=== PATIENT | male | born 1945 | race Caucasian/White ===

== ENCOUNTER → 2017-01-22 | Outpatient (CLI) | payer BC ==
[~2017-01-22] MED LIST: ALFU10TA30 PO; ATEN-175 PO; FINA5TAB PO; LOSA100T65 PO
== END | disposition home or self-care (01) ==
LOC: C.LABBFT 07:29
PROVIDERS: ATTEND Urology
DX: N40.1 Benign prostatic hyperplasia with lower urinary tract symptoms (principal); Z12.5 Encounter for screening for malignant neoplasm of prostate

== ENCOUNTER → 2017-06-08 | Outpatient (CLI) | payer BC ==
[~2017-06-08] MED LIST changes: +ALFU10TA2 PO; -ALFU10TA30 PO
[2017-06-08 12:34] LABS: BASO % 0.8 %; BASO ABS # 0.04 K/uL (0-0.2); EOS % 3.7 %; EOS ABS # 0.18 K/uL (0-0.5); HEMATOCRIT 42.1 % (42-52); IG# 0.01 K/uL (0.00-0.02); LYMPH % 20.5 %; LYMPH ABS # 0.99 K/uL (1.2-3.4); MEAN CELL VOLUME 91.1 fL (80-100); MEAN CORPUSCULAR HEMOGLOBIN 32.5 pg (25-34); MEAN CORPUSCULAR HGB CONC 35.6 g/dl (32-36); MEAN PLATELET VOLUME 10.4 fL (7.4-10.4); MONO % 12.4 %; NEUT % 62.4 %; NEUT ABS # 3.02 K/uL (1.4-6.5); PLATELET COUNT 143 K/uL (130-400); RED CELL DISTRIBUTION WIDTH CV 12.8 % (11.5-14.5); RED CELL DISTRIBUTION WIDTH SD 42.6 fL (36.4-46.3); WHITE BLOOD COUNT 4.84 K/uL (4.8-10.8)
[2017-06-08 14:51] LABS: ALBUMIN 3.7 gm/dl (3.4-5.0); ALT/SGPT 24 U/L (12-78); AST/SGOT 19 U/L (15-37); BLOOD UREA NITROGEN 17 mg/dl (7-18); CALCIUM 8.8 mg/dl (8.5-10.1); CARBON DIOXIDE 32 mmol/L (21-32); CREATININE 1.13 mg/dl (0.60-1.40); GLUCOSE 93 mg/dl (70-99); POTASSIUM 4.4 mmol/L (3.5-5.1); SODIUM 141 mmol/L (136-145)
[2017-06-08 14:54] LABS: ALKALINE PHOSPHATASE 65 U/L (45-117); CHOLESTEROL 158 mg/dl (0-200); LDL CHOLESTEROL CALCULATED 82 mg/dl; TOTAL PROTEIN 7.2 gm/dl (6.4-8.2)
== END | disposition home or self-care (01) ==
LOC: C.LABBFT 07:32
PROVIDERS: ATTEND Nurse Practitioner
DX: I10 Essential (primary) hypertension (principal); R78.5 Finding of other psychotropic drug in blood

== ENCOUNTER 2019-07-13 05:32 | Inpatient (IN) ==
--- NOTE | 2019-07-06 09:36 | Anesthesiology Consultation ---
Date of Service July 06, 2019 Assessment & Plan (1) Encounter for pre-operative examination: Chart Review Chart Review: Acceptable Risk for Surgery (pending DOS EKG and labs ) and Patient NOT seen in Pre Admission Testing Per surgeon's office- patient is to get preop testing DOS. BMP, CBC and EKG were ordered. Please note that patient does have retroperitoneal lymphadenopathy encasing the left ureter causing severe left sided hydronephrosis. Will leave fluid order to anesthesia discretion pending BMP results History Surgery Operation Date: 07/13/19 07:00 Proposed Procedures p Left Inguinal Lymph Node Biopsy, Possible Right Inguinal Lymph Node Biopsy - Carmelo Matthew, , FACS Height/Weight Height: 5 ft 8.5 in Weight: 81.647 kg Allergies Allergy/AdvReac Type Severity Reaction Status Date / Time No Known Allergies Allergy Unknown Verified 07/06/19 08:40 Medications Home Medications Medication Instructions Recorded Confirmed Last Taken alfuzosin 10 mg PO QPM 07/06/19 07/06/19 Unknown atenolol 50 mg PO QPM 07/06/19 07/06/19 Unknown finasteride 5 mg PO QPM 07/06/19 07/06/19 Unknown hydrochlorothiazide 25 mg PO QPM 07/06/19 07/06/19 Unknown lisinopril 20 mg PO QPM 07/06/19 07/06/19 Unknown Past Medical History Medical History BPH (benign prostatic hyperplasia) Dyslipidemia GERD (gastroesophageal reflux disease) History of endocarditis (Resolved) "BACTERIA EFFECTING AORTIC VALVE">TREATED WITH ANTIBIOTICS- DX'ED IN MAY 2015 Hypertension Leukopenia CHRONIC/MILD/STABLE PER 09/2018 PCP NOTE Lymphadenopathy, inguinal Lymphadenopathy, mesenteric Skin cancer Past Family History Family History Mother Hypertension History of CVA (cerebrovascular accident) Father Unknown family medical history Lung disease Brother Unknown family medical history Sister Dementia Alcohol abuse Family/Other No problems noted. Denies family history of Prostate cancer Colorectal cancer Past Surgical History Surgical History History of cataract surgery LEFT History of colonoscopy History of open reduction and internal fixation (ORIF) procedure RT LEG History of tooth extraction Social History Smoking Status: Former smoker Do You Dip or Chew Tobacco: No Smoking End Date: 31 YEARS AGO Hx Alcohol Use: No Hx Substance Use: No Testing Echocardiogram Date: 12/15/18 EF: 60-65% LV Function: normal RWMA: + none Other Findings: + LVH (mild/concentric ) Small calcified nodule on left coronary cusp unchanged from 07/14/16 study. Mild MR. Grade II diastolic dysfunction. LA severely dilated. Other Testing Chest CT 06/27/19= The heart is enlarged and without pericardial effusion. The coronary arteries are densely calcified. There is no airspace consolidation or pleural effusion. Mild scarring/atelectasis is noted at the lung bases. The trachea and central airways are clear.
[2019-07-13] MEDS ORDERED: CEFAZOLIN 2000MG 2,000 MG/15 ML SYR IV SCH (06:00)
[2019-07-13] MEDS ORDERED: LR 15ML/HR IV SCH (06:00)
[2019-07-13 06:31] LABS: Basophils # (auto) 0.02 K/uL (0-0.2); Basophils % (auto) 0.5 %; Eosinophils % (auto) 2.7 %; Hematocrit (blood only) 31.8 % (42-52); Hemoglobin 11.3 g/dL (14.0-18.0); Immature Granulocytes # (auto) 0.01 K/uL (0.00-0.02); Immature Granulocytes % (auto) 0.3 %; Lymphocytes # (auto) 0.59 K/uL (1.2-3.4); Lymphocytes % (auto) 16.1 %; Mean Corpuscular Hemoglobin 31.9 pg (25-34); Mean Corpuscular Volume 89.8 fL (80-100); Mean Platelet Volume 9.3 fL (7.4-10.4); Monocytes # (auto) 0.39 K/uL (0.11-0.59); Monocytes % (auto) 10.6 %; Neutrophils # (auto) 2.56 K/uL (1.4-6.5); Neutrophils % (auto) 69.8 %; Platelet Count 129 K/uL (130-400); RDW Coefficient of Variation 12.7 % (11.5-14.5); RDW Standard Deviation 40.8 fL (36.4-46.3); Red Blood Count 3.54 M/uL (4.7-6.1); White Blood Count 3.67 K/uL (4.8-10.8)
[2019-07-13 06:36] LABS: Mean Corpuscular Hgb Conc 35.5 g/dL (32-36)
[2019-07-13] MEDS ORDERED: LIDOCAINE HCL 2% 2 ML VIAL/AMP(20MG/ML) INFIL ONE (06:41)
[2019-07-13] MEDS ORDERED: fentaNYL citrate 100 MCG/2 ML VIAL ONE (06:41)
[2019-07-13] MEDS ORDERED: ePHEDrine sulfate 50 MG/ML SYR ONE (06:41)
[2019-07-13] MEDS ORDERED: DEXAMETHASONE SOD INJ 4 MG/ML VIAL ONE (06:41)
[2019-07-13] MEDS ORDERED: ONDANSETRON INJ 2 MG/ML 2 ML VIAL ONE ×2 (06:41→08:18)
[2019-07-13] MEDS ORDERED: PROPOFOL IV EMULSION 10 MG/ML 20 ML VIAL IV ONE ×2 (06:41→07:27)
[2019-07-13] MEDS ORDERED: MIDAZOLAM HCL 1 MG/ML 2ML VIAL ONE (06:41)
[2019-07-13] MEDS ORDERED: BUPIVACAINE LIPOSOME 1.3% 266 MG/20 ML VIAL ONE (06:50)
[2019-07-13] MEDS ORDERED: BUPIVACAINE 0.5 % 5 MG/1 ML MPF 30ML VIAL ONE ×2 (06:50→07:16)
[2019-07-13 06:51] LABS: Albumin Level 3.2 gm/dl (3.4-5.0); BUN Creatinine Ratio 18.6 (10-20); Bilirubin Direct 0.1 mg/dl (0-0.2); Calcium 9.7 mg/dl (8.5-10.1); Creatinine Clr Calc Pharmacy 28.2 ml/min; Est GFR (African American) 32.2; Est GFR (Non-African American) 27.8; Potassium 3.9 mmol/L (3.5-5.1)
[2019-07-13 06:53] LABS: Bilirubin,Total 0.4 mg/dl (0.2-1); Total Protein 6.9 gm/dl (6.4-8.2)
--- NOTE | 2019-07-13 07:06 | History & Physical Bridge Note ---
Date of Service July 13, 2019 History & Physical Bridge Note I have examined the patient, reviewed the History & Physical and in the interval since the performance of the History & Physical I have noted the following changes of clinical significance: no changes noted
[2019-07-13] MEDS ORDERED: ATROPINE SULFATE 0.1 MG/ML 10ML SYR IV PRN (07:11)
[2019-07-13] MEDS ORDERED: ePHEDrine sulfate 50 MG/ML AMP IV PRN (07:11)
--- NOTE | 2019-07-13 07:57 | Operative Report ---
PG Post Operative Report Pre & Post Diagnosis Operation Date: 07/13/19 07:00 Pre-Op Diagnosis: Localized Enlarged Lymph Node in Groin Post-Op Diagnosis: Localized Enlarged Lymph Node in Groin I identified the patient and participated in the time-out.: Yes Procedure Operation Date: 07/13/19 07:00 Actual Procedures p Left Inguinal Lymph Node Biopsy(Left) - Carmelo Matthew DO, JACOB Surgeon Carmelo Matthew DO, JACOB Cancer Program Consultant Danika Salvador Estimated Blood Loss 5 Findings Consistent with Post-Op Diagnosis Large left inguinal lymph node excised, lymphovascular pedicle controlled with 3-0 silk ties, good hemostasis. Portion sent for culture. Specimens Left inguinal lymph node Left inguinal lymph node for culture Anesthesia Type MAC Complications none Disposition Accompanied Patient To Recovery: No Disposition: Recovery Room Indications 74-year-old male with newly diagnosed lymphadenopathy and concern for lymphoma, plan for left inguinal lymph node biopsy, possible right. The risks of the procedure were discussed, all questions were answered, and the patient agreed to proceed with surgery as planned. Description of Procedure The patient was properly identified, consented, and taken to the operating room where he was placed in the supine position. Sedation with monitored anesthesia care was induced. SCDs and a safety belt were placed. Preoperative antibiotics were administered. The patient's bilateral groins was prepped and draped in the standard sterile fashion. Surgical timeout was performed and all parties were in agreement that this was the correct patient and procedure to be performed and we continued as planned. Local anesthetic was injected along the skin incision. A oblique incision was made overlying the palpable inguinal lymph node and deepened down through the subcutaneous tissue with electrocautery. The mass was circumferentially dissected, excised, and passed off the table as specimen. The lymphovascular pedicles were controlled with 3-0 silk ties. A small piece of lymph node tissue was sent for culture. The wound was irrigated and hemostasis was confirmed. A deep layer was closed with running 3-0 Vicryl suture. The skin was closed with interrupted 3-0 Vicryl deep dermal sutures, followed by 4-0 Monocryl running subcuticular suture. Dermabond was placed over the wound. The patient was extubated in the operating room and taken to the PACU where he recovered without apparent incident. All sponge, instrument and needle counts were correct at the conclusion of the procedure. The patient tolerated the procedure well. The physician's pharmacy assistant was present and scrubbed for the entirety of the case. She was critical in positioning the patient, prepping and draping, retraction and exposure, excision of the lymph node, closure the incisions, and placement of the dressings. I attest to the content of the Intraoperative Record and any orders documented therein. Any exceptions are noted below.
[2019-07-13] MEDS ORDERED: MoRPHine SULFATE 4 MG/ML 1 ML CARP\\VIAL IV PRN (08:04)
[2019-07-13] MEDS ORDERED: ONDANSETRON INJ 2 MG/ML 2 ML VIAL IV PRN ×2 (08:04→11:18)
[2019-07-13] MEDS ORDERED: OXYCODONE/ACETAMINOPHEN 5mg/325mg TAB PO PRN ×2 (08:04)
[2019-07-13] MEDS ORDERED: MoRPHine SULFATE 2 MG/ML CARP IV PRN (08:04)
[2019-07-13] MEDS ORDERED: SODIUM CHLORIDE 0.9% 1000ML 1,000 ML IV SCH (08:15)
[2019-07-13] MEDS ORDERED: ONDANSETRON INJ 2 MG/ML 2 ML VIAL IV STA (08:22)
[2019-07-13] MEDS ORDERED: CALCIUM CARBONATE 500 MG CHEWABLE TAB PO PRN (08:46)
--- NOTE | 2019-07-13 08:46 | Anesthesiology Progress Note ---
Date of Service July 13, 2019 Anesthesia Post Procedure Vital Signs Vital Signs: Temp Pulse Resp BP Pulse Ox 07/13/19 08:40 36.4 C L 83 26 H 119/66 95 07/13/19 08:30 36.4 C L 82 24 121/71 98 07/13/19 08:20 76 26 H 121/65 99 07/13/19 08:11 83 30 H 125/61 100 07/13/19 05:53 36.7 C 71 20 137/72 97 Transfer of Care Handoff Completed per policy Notes Mental Status: alert / awake / arousable and participated in evaluation Patient Amnestic to Procedure: Yes Nausea / Vomiting: adequately controlled Pain: adequately controlled Airway Patency, RR, SpO2: stable & adequate BP & HR: stable & adequate Hydration State: stable & adequate Anesthetic Complications: no major complications apparent
--- NOTE | 2019-07-13 10:07 | XRay Report ---
XR chest 1V portable CLINICAL HISTORY: SOB, tachypnea, unable to maintain O2 Sat >90%. COMPARISON STUDY: 07/08/2015 FINDINGS: The heart is normal in size. There are bilateral pulmonary airspace opacities consistent wi th a multifocal pneumonitis. There are no pleural effusions.[There is no evidence of failure. IMPRESSION: 1. Interval development of multifocal airspace opacities consistent with a multifocal pneumonitis. Cl inical and radiographic follow-up is recommended. ACT 112: Negative or not required by law. Electronically signed by: Chandler Castillo M.D. 07/13/2019 10:05 AM
[2019-07-13] MEDS ORDERED: FUROSEMIDE 20 MG in SYRINGE 0 ML IV STA (10:16)
[2019-07-13] MEDS ORDERED: FUROSEMIDE 40 MG/4 ML VIAL IV ONE (10:19)
[2019-07-13] MEDS ORDERED: FUROSEMIDE 40 MG/4 ML VIAL IV STA (10:19)
[2019-07-13] MEDS ORDERED: ALBUT/IPRATROP 3MG/0.5MG NEB 3 ML VIAL NEB STA (10:28)
--- NOTE | 2019-07-13 10:28 | Anesthesiology Progress Note ---
Date of Service Pt c/o nausea and heartburn in PACU. Treated with ondansetron with some improvement. Transferred to Phase 2. Pt however continued to c/o malaise, mild dyspnea and was noted to be relatively hypoxemic on nasal O2. Diffuse wheezing noted on auscultation. Consulted hospitalist Dr. Schultz who responded to evaluate pt. Dr. Schultz ordered CXR and plans to admit pt for further evaluation and treatment. Diffuse wheezing July 13, 2019 Physical Exam Vital Signs: Last Vital Signs Temp 36.6 C 07/13/19 08:50 Pulse 87 07/13/19 09:30 Resp 28 H 07/13/19 09:30 BP 126/77 07/13/19 09:30 Pulse Ox 91 07/13/19 09:30 Results & Data Medications Administered Cefazolin Sodium (Ancef 2000mg) 2,000 mg in 15 mls @ 3.75 mls/min IV PREOP JEANMARIE Stop: 07/13/19 18:00 Last Admin: 07/13/19 07:09 Dose: 3.75 mls/min Documented by: [id number]
--- NOTE | 2019-07-13 10:29 | History & Physical Report ---
Date of Service July 13, 2019 Assessment & Plan (1) Acute respiratory failure with hypoxia: Patient had normal O2 sats prior to his excisional lymph node biopsy today. Also had no pulmonary symptoms prior to the surgery. Thus, differential includes acute pulmonary edema vs aspiration event vs ACS. Favor acute pulmonary edema but others need to be excluded. Plan - * admit to telemetry * serial troponins * repeat EKG done in [facility] - no ischemic changes noted * change oxymask to HFNC; maintain o2 sats >90% * duonebs q6h * give additional lasix dose this afternoon * research to see when last echo was; if >1 year consider repeat * consider repeat chest x-ray with any worsening * consider IV antibiotics to cover aspiration if any fever or symptoms of infectious process COVID screen -- no recent infectious symptoms or pulmonary symptoms prior to today's operation. COVID not suspected. Present on Admission?: Yes (2) Elevated serum creatinine: Cr 1.3 in October 2018. Now 2.2 this am pre-op. Will repeat BMP this afternoon. Noted on recent CT abd/pelvis severe left-sided hydronephrosis due to obstruction from lymph nodes. Strongly consider consultation with urology -- need for stent placement?? BMP again in am as well. (3) Lymphadenopathy, inguinal: CT chest/abd/pelvis highly concerning for lymphoma. s/p excisional left-sided inguinal lymph node biopsy today. Spoke with Dr Matthew - he will recheck groin site in am. No activity restrictions. Ok for DVT proph from surgery standpoint. (4) Leukopenia: Chronic, dating back several years. Current leukopenia 2nd suspected lymphoma. (5) Hypertension: HOLD CAMILA due to elevated Cr. HOLD HCTZ due to elevated Cr and need for IV lasix. Cont atenolol. (6) Dyslipidemia: Not on statin therapy or other agent at this time. (7) BPH (benign prostatic hyperplasia): Cont home meds including alfuzosin and finasteride. Garcia. (8) GERD (gastroesophageal reflux disease): Per 's report - severe, daily symptoms. Start PPI. Start carafate qid. Serial trops to ensure GI symptoms are not cardiac in origin. (9) Hydronephrosis: left-sided on CT abd/pelvis from June. Due to obstruction from lymph nodes. See above. (10) DVT prophylaxis: heparin 5000 BID updated by phone -- Kyung Jarquin - [phone]; explained to her that he will be admitted for issues as above. History of Present Illness Chief Complaint: hypoxia, shortness of breath Primary Care Provider: Bry Garcia MD 74yo male with h/o HTN, BPH, chronic tremor dating back to his teenage years, prior aortic valve endocarditis, and suspected lymphoma who presented today for left inguinal excisional lymph node biopsy by Dr Matthew. In the last few weeks he has undergone work-up for suspected lymphoma with finney-CT chest/abd/pelvis. Per the operative record and speaking with anesthesia the procedure was uneventful. He received about 750cc of lactated ringers in total. Anesthesia - MAC. Per the anesthesiologist there was no vomiting episode or apparent aspiration event. Upon my arrival in the [facility] the patient was visibly dyspneic and tachypneic. He reported that he "felt fine" prior to his surgery today. He asked repeatedly "what's wrong?" Denied any fever, chills, cough, or dyspnea prior to the surgery today. He does have ALEXANDER with climbing a flight of steps but he states this is chronic for him. I spoke to the patient's by phone after my admission assessment and apparently sometime following dinner last evening the patient did c/o dyspnea to his but he was not visibly short of breath. Patient denies any recent LE edema or weight gain. Patient's also reports that the patient takes large amounts of TUMS on a daily basis for reflux symptoms. He c/o frequent heartburn/dyspepsia symptoms along with stomach aches. He has had these symptoms for at least a year. During my admission assessment I gave lasix 20mg IV x 1, chest x-ray was obtained (my reading - pulmonary edema), switched his oxymask to high-flow NC, and gave duoneb x 1. Following these maneuvers he reported feeling better with less dyspnea. Had 500cc of urine output immediately following the lasix. Allergies Allergy/AdvReac Type Severity Reaction Status Date / Time No Known Allergies Allergy Unknown Verified 07/13/19 05:57 Home Medications Home Medications Medication Instructions Recorded Confirmed Type alfuzosin 10 mg PO QPM 07/06/19 07/13/19 History atenolol 50 mg PO QPM 07/06/19 07/13/19 History finasteride 5 mg PO QPM 07/06/19 07/13/19 History hydrochlorothiazide 25 mg PO QPM 07/06/19 07/13/19 History lisinopril 20 mg PO QPM 07/06/19 07/13/19 History acetaminophen [Tylenol Extra 1,000 mg PO Q6H PRN 07/13/19 07/13/19 History Strength] oxycodone-acetaminophen [Percocet] 1 - 2 tab PO .q4-6h PRN #15 tab 07/13/19 Rx Past Med/Surg History Medical History (Updated 07/13/19 @ 12:16 by Reggie Schultz) BPH (benign prostatic hyperplasia) Dyslipidemia GERD (gastroesophageal reflux disease) History of endocarditis (Resolved) "BACTERIA EFFECTING AORTIC VALVE">TREATED WITH ANTIBIOTICS- DX'ED IN MAY 2015 Hypertension Leukopenia CHRONIC/MILD/STABLE PER 09/2018 PCP NOTE Lymphadenopathy, inguinal Lymphadenopathy, mesenteric Skin cancer Tremor Surgical History H/O lymph node biopsy (07/13/19) Left Inguinal Lymph Node Biopsy Dr. Matthew 07/13/2019 History of cataract surgery LEFT History of colonoscopy History of open reduction and internal fixation (ORIF) procedure RT LEG History of tooth extraction Family History Mother Hypertension History of CVA (cerebrovascular accident) Father Unknown family medical history Lung disease Brother Unknown family medical history Sister Dementia Alcohol abuse Family/Other No problems noted. Denies family history of Prostate cancer Colorectal cancer Social History (Updated 07/13/19 @ 12:07 by Reggie Schultz) Preferred Language: Czech Anesthesiology Medical Doctor Required: No Beliefs That Will Affect Care: None marital status: Current Living Situation: Spouse Current Living Situation Comment: lives in [place] current occupational status: retired current occupation: Patient retired from the school district in 2019. Feels Safe at Home: Yes Safety Concerns: Feels Safe At This Time Smoking Status: Former smoker packs per day: 1 ; Do You Dip or Chew Tobacco: No ; Smoking End Date: 31 YEARS AGO ; Second Hand Exposure: Yes ( A CHILD) ; Tobacco Cessation Education Requested by Patient: No Hx Alcohol Use: No Hx Substance Use: No Review of Systems Constitutional: + weight loss (2 pounds ); no fever, no chills and no anorexia Eyes: no worsening vision Ear, Nose, Mouth, Throat: no dysphagia Respiratory: + cough, + dyspnea and + dyspnea on exertion Cardiovascular: no chest pain, no palpitations and no edema Gastrointestinal: + abdominal pain, + heartburn and + nausea; no vomiting Genitourinary: no dysuria and no hematuria Musculoskeletal: no joint pain Integumentary: no rash Neurologic: + localized weakness (right arm weakness x 2 days?) and + tremor(s) Psychiatric: no depression Endocrine: no diabetes Hematologic / Lymphatic: no easy bleeding Physical Exam Constitutional: + acute distress, average body habitus and + frail appearing; no altered mental status tachypneic, dyspneic, using accessory muscles Eyes: PERRL lens implant left eye ENMT: Mouth: no oral mucosal abnormality and oral mucous membranes not dry Neck: trachea midline, no thyromegaly Respiratory: + respiratory distress, + retractions, + uses accessory muscles, + cough and + tachypneic Auscultation: + crackles (bibasilar ) and + wheezes Cardiovascular: Rate/Rhythm: regular rhythm and + tachycardic Heart Sounds: normal S2; no murmur Vessels: + JVD, posterior tibial pulses present and dorsalis pedis pulses present Extremities: no edema Gastrointestinal (Abdomen): Inspection/Auscultation: + abdomen distended (mild) and normal bowel sounds Percussion/Palpation: no hepatosplenomegaly Musculoskeletal: no cyanosis or clubbing, extremities motor strength 5/5 Skin: no rashes, warm and dry left inguinal region incision clean/dry/intact Neurologic: deep tendon reflexes 2+ bilaterally and moves all extremities (5/5) Motor/Sensory: + tremor (right arm mainly ) Psychiatric: Orientation: alert and oriented x 3 Affect: + anxious affect Genitourinary: normal male genitalia; garcia in place Lymphatic: no cervical lymphadenopathy Results & Data Results & Data ([facility]) Vital Signs (Past 12 Hours) Vital Signs Temp Pulse Resp BP Pulse Ox 07/13/19 09:30 87 28 H 126/77 91 07/13/19 08:50 36.6 C 80 32 H 120/61 95 07/13/19 08:40 36.4 C L 83 26 H 119/66 95 07/13/19 08:30 36.4 C L 82 24 121/71 98 07/13/19 08:20 76 26 H 121/65 99 07/13/19 08:11 83 30 H 125/61 100 07/13/19 05:53 36.7 C 71 20 137/72 97 Laboratory Results Laboratory Results - last 24 hr 07/13/19 07/13/19 07/13/19 06:02 06:02 08:32 WBC 3.67 L RBC 3.54 L Hgb 11.3 L Hct 31.8 L MCV 89.8 MCH 31.9 MCHC 35.5 RDW Std Deviation 40.8 RDW Coeff of Charlie 12.7 Plt Count 129 L MPV 9.3 Immature Gran % (Auto) 0.3 Neut % (Auto) 69.8 Lymph % (Auto) 16.1 [place] % (Auto) 10.6 Eos % (Auto) 2.7 Baso % (Auto) 0.5 Immature Gran # (Auto) 0.01 Neut # (Auto) 2.56 Lymph # (Auto) 0.59 L [place] # (Auto) 0.39 Eos # (Auto) 0.10 Baso # (Auto) 0.02 Sodium 140 Potassium 3.9 Chloride 107 Carbon Dioxide 28 Anion Gap 5.0 BUN 42 H Creatinine 2.23 H Est Cr Clr Drug Dosing 28.2 Est GFR ( Amer) 32.2 Est GFR (Non-Af Amer) 27.8 BUN/Creatinine Ratio 18.6 Glucose 93 POC Glucose Calcium 9.7 Total Bilirubin 0.4 Direct Bilirubin 0.1 AST 24 ALT 20 Alkaline Phosphatase 85 Troponin I Total Protein 6.9 Albumin 3.2 L Flow Cytometry Comment Pending 07/13/19 07/13/19 09:22 11:54 WBC RBC Hgb Hct MCV MCH MCHC RDW Std Deviation RDW Coeff of Charlie Plt Count MPV Immature Gran % (Auto) Neut % (Auto) Lymph % (Auto) [place] % (Auto) Eos % (Auto) Baso % (Auto) Immature Gran # (Auto) Neut # (Auto) Lymph # (Auto) [place] # (Auto) Eos # (Auto) Baso # (Auto) Sodium Potassium Chloride Carbon Dioxide Anion Gap BUN Creatinine Est Cr Clr Drug Dosing Est GFR ( Amer) Est GFR (Non-Af Amer) BUN/Creatinine Ratio Glucose POC Glucose 101 H Calcium Total Bilirubin Direct Bilirubin AST ALT Alkaline Phosphatase Troponin I Pending Total Protein Albumin Flow Cytometry Comment Diagnostic Findings EKG - my reading - sinus tach vs SVT (favor sinus tach); no ST changes chest x-ray - my reading - pulmonary edema b/l Code Status & VTE Plan Code Status full code level 1 VTE Prophylaxis Plan VTE Prophylaxis will be ordered: Yes PG Care Time/CCT Total # of Minutes Spent Total Time Spent with Patient: Total time spent is greater than 50% in coordination of care (as documented) at patient's floor/unit and/or counseling patient: Coding Level of Care Code 58108 Initial Inpt Care Lvl 3 Diagnoses Acute respiratory failure with hypoxia J96.01 Elevated serum creatinine R79.89 Lymphadenopathy, inguinal R59.0 Leukopenia D72.819 Leukopenia type: unspecified Hypertension I10 Hypertension type: essential hypertension Dyslipidemia E78.5 BPH (benign prostatic hyperplasia) N40.0 Lower urinary tract symptom presence: symptoms absent GERD (gastroesophageal reflux disease) K21.9 Esophagitis presence: esophagitis presence not specified Hydronephrosis N13.30 Hydronephrosis type: unspecified DVT prophylaxis Z29.9 (1) Hydronephrosis Hydronephrosis type: unspecified Qualified Code(s): N13.30 - Unspecified hydronephrosis (2) BPH (benign prostatic hyperplasia) Lower urinary tract symptom presence: symptoms absent Qualified Code(s): N40.0 - Benign prostatic hyperplasia without lower urinary tract symptoms (3) Leukopenia Leukopenia type: unspecified Qualified Code(s): D72.819 - Decreased white blood cell count, unspecified (4) GERD (gastroesophageal reflux disease) Esophagitis presence: esophagitis presence not specified Qualified Code(s): K21.9 - Gastro-esophageal reflux disease without esophagitis (5) Hypertension Hypertension type: essential hypertension Qualified Code(s): I10 - Essential (primary) hypertension
[2019-07-13] MEDS ORDERED: NITROGLYCERIN SL 0.4 MG/TAB TAB SL PRN (11:18)
[2019-07-13] MEDS ORDERED: POLYETHYLENE (MIRALAX) 17 GM PACK PO PRN (11:18)
[2019-07-13] MEDS ORDERED: ACETAMINOPHEN 500 MG TAB PO PRN (11:18)
[2019-07-13] MEDS: SUCRALFATE 1 GM/10 ML UDC PO SCH ×3 (12:11→20:15)
[2019-07-13] MEDS: PANTOprazole 40 MG in SYRINGE 0 ML IV SCH (12:11)
[2019-07-13] MEDS ORDERED: PIPERACILL/TAZOBAC CONSULT ACTIVE PRN (12:28)
[2019-07-13] MEDS ORDERED: PIPERACILLIN/TAZOBACTAM 3.375 GM in DEXTROSE 5% 100 ML IV ONE (12:45)
[2019-07-13] MEDS ORDERED: FUROSEMIDE 20 MG in SYRINGE 0 ML IV ONE (14:00)
[2019-07-13] MEDS: ALBUT/IPRATROP 3MG/0.5MG NEB 3 ML VIAL NEB SCH ×3 (15:09→23:14)
--- NOTE | 2019-07-13 17:11 | Communication Note ---
Date of Service: July 13, 2019 Since admission to the floor patient has had ongoing improvement in his respiratory status. In fact the settings on his HFNC have been weaned some since earlier in the day. He has some cough but denies dyspnea. No orthopnea. Spoke with Dr Tiff sanford to use SC heparin for DVT proph. OK to ambulate with no restrictions. Spoke with Dr Andrade from urology re: severe hydronephrosis on CT abd/pelvis in June. Likely to need stent nonurgently. [place] is due to obstruction from lymphadenopathy. Repeat exam - gen - comfortable, no dyspnea, no increased WOB heart - HR about 100 (improved); s1 s2 lungs - wheezes b/l but improved from earlier; crackles bases Imp/plan: acute hypoxic resp failure - 2nd to aspiration vs pulm edema - favor former. Did diurese about 750cc since the am. Noted that he had low-grade temp of 37.9 this afternoon; in light of probable aspiration pneumonia --- zosyn started, blood cx's dispatched. Repeat cxr in am ordered. Updated at 1700 this evening. She again confirmed NO fevers/chills/cough in the days leading up to this admission. Also, anesthesia confirmed he was CTA b/l on lung exam pre-operatively this am and had normal O2 sats in room air at time of check-in this am. Suspicion for COVID is low at this time (suspected lymphoma, however, will put him at higher risk of COVID over the next few months however). Reggie Schultz MD
[2019-07-13 18:18] LABS: BUN Creatinine Ratio 16.2 (10-20); Blood Urea Nitrogen 46 mg/dl (7-18); Calcium 9.6 mg/dl (8.5-10.1); Carbon Dioxide 26 mmol/L (21-32); Chloride 105 mmol/L (98-107); Est GFR (African American) 23.9; Est GFR (Non-African American) 20.7; Glucose 138 mg/dl (70-99); Potassium 3.7 mmol/L (3.5-5.1); Sodium 140 mmol/L (136-145)
[2019-07-13 18:23] LABS: Troponin I < 0.015 ng/ml (0-0.045)
[2019-07-13] MEDS: PIPERACILLIN/TAZOBACTAM 3.375 GM in DEXTROSE 5% 100 ML IV SCH (19:55)
[2019-07-13] MEDS: HEPARIN SOD 5,000 UNIT/0.5 ML VIAL SQ SCH ×2 (20:15→20:24)
[2019-07-13] MEDS: ALFUZOSIN HCL 10 MG TAB PO SCH (20:16)
[2019-07-13] MEDS: ATENOLOL 50 MG TABLET PO SCH (20:16)
[2019-07-13] MEDS: FINASTERIDE 5 MG TAB PO SCH (20:16)
[2019-07-13 22:33] LABS: Appearance Urine Cloudy (Clear); Bacteria Urine Automated Negative (Negative); Bilirubin Urine Negative (Negative); Blood Urine 3+ (Negative); Color Urine Orange; Glucose Urine UA Negative (Negative); Ketones Urine Negative (Negative); Leukocyte Esterase Urine Trace (Negative); Nitrite Urine Negative (Negative); Protein Urine Trace (Negative); RBC Urine Automated >30 /hpf (0-4); Specific Gravity Urine 1.015 (1.000-1.030); Urobilinogen Urine Negative (Negative)
[2019-07-13 22:53] LABS: Cast Urine Automated 0 /lpf (0-5)
[2019-07-14] MEDS: PIPERACILLIN/TAZOBACTAM 3.375 GM in DEXTROSE 5% 100 ML IV SCH ×3 (03:10→20:55)
[2019-07-14] MEDS: ALBUT/IPRATROP 3MG/0.5MG NEB 3 ML VIAL NEB SCH ×6 (03:15→22:59)
[2019-07-14 05:55] LABS: Basophils # (auto) 0.01 K/uL (0-0.2); Basophils % (auto) 0.1 %; Eosinophils # (auto) 0.02 K/uL (0-0.5); Eosinophils % (auto) 0.2 %; Hematocrit (blood only) 28.5 % (42-52); Immature Granulocytes # (auto) 0.04 K/uL (0.00-0.02); Immature Granulocytes % (auto) 0.4 %; Lymphocytes # (auto) 0.65 K/uL (1.2-3.4); Lymphocytes % (auto) 6.4 %; Mean Corpuscular Hemoglobin 31.4 pg (25-34); Mean Corpuscular Hgb Conc 35.1 g/dL (32-36); Mean Corpuscular Volume 89.6 fL (80-100); Mean Platelet Volume 9.4 fL (7.4-10.4); Monocytes # (auto) 0.63 K/uL (0.11-0.59); Monocytes % (auto) 6.2 %; Neutrophils # (auto) 8.86 K/uL (1.4-6.5); Neutrophils % (auto) 86.7 %; Platelet Count 131 K/uL (130-400); RDW Coefficient of Variation 12.9 % (11.5-14.5); RDW Standard Deviation 42.4 fL (36.4-46.3); Red Blood Count 3.18 M/uL (4.7-6.1); White Blood Count 10.21 K/uL (4.8-10.8)
--- NOTE | 2019-07-14 06:15 | Communication Note ---
Date of Service: July 14, 2019 Received report overnight of faint blood in garcia catheter, reported to bedside where patient states he is having no abdominal pain, or discomfort. Garcia c atheter still in place, with pink tinged urine in tubing and in bag. No suprapubic tenderness, no CVA tenderness, bowel sounds active, abdomen non- distended and soft. Received report that patient's BP on check at 0508 being 80/47, patient asymptomatic and sleeping in bed. Patient does have an GILLIAN with Cr elevated to 2.85 on last check yesterday evening. Received 40mg Lasix IV total yesterday due to concern for acute pulmonary edema on admission, in this setting have opted not to bolus patient. Repeat CXR this AM
[2019-07-14 06:25] LABS: BUN Creatinine Ratio 19.6 (10-20); Calcium 8.8 mg/dl (8.5-10.1); Creatinine Clr Calc Pharmacy 22.7 ml/min; Est GFR (African American) 24.8; Est GFR (Non-African American) 21.4; Potassium 3.7 mmol/L (3.5-5.1)
--- NOTE | 2019-07-14 07:57 | Surgery Progress Note ---
Date of Service July 14, 2019 Assessment & Plan (1) Lymphadenopathy, inguinal: POD 1 left inguinal node biopsy stable for d/c from surgical standpoint Supervising Physician Co-Signing Physician Notes pnt s&e, agree with above. POD#1 left inguinal lymph node biopsy, admitted for respiratory distress and o2 requirement. doing better, o2 requirement decreasing. appreciate medical management. incision with dermabond, healing well, no seroma/hematoma or infection. okay to d/c from surgery standpoint, surgery will follow peripherally. Subjective no c/o Physical Exam Gastrointestinal (Abdomen): left groin wound clean, dry Results & Data Vital Signs (Past 12 Hours) Vital Signs Temp Pulse Pulse Resp BP BP Pulse Ox 07/14/19 07:26 37.0 C 89 22 98/57 L 90 07/14/19 06:09 84 16 94 07/14/19 05:08 87 80/47 L 07/14/19 03:43 36.8 C 90 22 88/50 L 86/51 L 93 07/14/19 03:15 86 18 96 07/13/19 23:32 36.7 C 88 24 118/68 96 07/13/19 23:18 95 H 20 96 PG Care Time/CCT Total # of Minutes Spent Total Time Spent with Patient: Total time spent is greater than 50% in coordination of care (as documented) at patient's floor/unit and/or counseling patient: Coding Level of Care Code None Diagnoses Lymphadenopathy, inguinal R59.0
--- NOTE | 2019-07-14 07:58 | XRay Report ---
XR chest 1V portable CLINICAL HISTORY: 74 years-old Male presenting with acute hypoxic resp failure, interval change. TECHNIQUE: Portable upright AP view of the chest was obtained. COMPARISON: 07/13/[address] from 06/27/2019. FINDINGS: Atherosclerosis of the aortic arch. Cardiac silhouette borderline enlarged. Interval increase in mult ifocal mid to basilar predominant hazy and irregular linear opacities. Bronchial wall thickening susp ected. No pleural effusion or pneumothorax. Degenerative changes of the thoracic spine. Upper abdomen normal. IMPRESSION: 1. Interval worsening of bilateral multifocal mid to basilar predominant infiltrates. This is most c oncerning for multifocal pneumonia, including atypical and viral etiologies. Alternative differential considerations include edema or aspiration. Follow-up is advised. ACT 112: Negative or not required by law. Electronically signed by: Manjeet Sharma M.D. 07/14/2019 7:56 AM
[2019-07-14] MEDS: SUCRALFATE 1 GM/10 ML UDC PO SCH ×4 (08:45→20:57)
[2019-07-14] MEDS: HEPARIN SOD 5,000 UNIT/0.5 ML VIAL SQ SCH ×2 (08:45→20:57)
--- NOTE | 2019-07-14 10:24 | Electrocardiogram Report ---
Test Reason : Blood Pressure : / mmHG Vent. Rate : 070 BPM Atrial Rate : 070 BPM P-R Int : 180 ms QRS Dur : 098 ms QT Int : 398 ms P-R-T Axes : 071 -20 002 degrees QTc Int : 429 ms Normal sinus rhythm Minimal voltage criteria for LVH, may be normal variant Cannot rule out Anterior infarct , age undetermined Abnormal ECG When compared with ECG of 08-JUL-2015 13:30, Vent. rate has increased BY 26 BPM Minimal criteria for Anterior infarct are now Present ST now depressed in Anterior leads Confirmed by Jam Morrsi ([id number]) on 07/14/2019 10:24:26 AM Referred By: Carmelo Matthew Confirmed By:Jam Morris
--- NOTE | 2019-07-14 10:38 | Hospitalist Progress Note ---
Date of Service July 14, 2019 Assessment & Plan (1) Acute respiratory failure with hypoxia: Patient with postoperative acute respiratory failure, consideration to acute aspiration. I did review the chest x-ray from earlier this morning, does appear to be mildly worsened with bilateral lower infiltrates from previous. However, patient patient is medically better. Seems responding well to IV Zosyn which we will continue for now. As patient continues to improve, consideration to changing over to oral Augmentin to finish course. (2) Elevated serum creatinine: Creatinine is 2.77 today, seems to be elevated from previous baseline of around 1.3. No real improvement since presentation. No significant hypotension was documented since admission until earlier this morning was systolic blood pressure dropped into the 80s. It appears there was some recovery and is now 98/57. Patient was previously on an CAMILA inhibitor and HCTZ, both are not held. Hematuria noted, urinalysis taken yesterday consistent with Reilly trauma. Previous CT of the abdomen and pelvis noted, patient has a large abdominal mass with significant retroperitoneal lymphadenopathy. There is severe left-sided hydronephrosis secondary to tumor bulk. Will ask urology to evaluate with consideration of stent placement for this, case was previously discussed with Dr. Andrade. (3) Lymphadenopathy, inguinal: Cleared for discharge from a surgical perspective per their service. (4) Leukopenia: Chronic, dating back several years. Current leukopenia 2nd suspected lymphoma. (5) Hypertension: HOLD CAMILA due to elevated Cr. HOLD HCTZ due to elevated Cr and need for IV lasix. With relative hypotension, should hold atenolol as well. (6) Dyslipidemia: Not on statin therapy or other agent at this time. (7) BPH (benign prostatic hyperplasia): Cont home meds including alfuzosin and finasteride. Reilly. (8) GERD (gastroesophageal reflux disease): Per 's report - severe, daily symptoms. Start PPI. Start carafate qid. Troponin is ordered to rule out a cardiac origin, 2 sets have been nondetectable. (9) Hydronephrosis: left-sided on CT abd/pelvis from June. Due to obstruction from lymph nodes. See above. (10) DVT prophylaxis: heparin 5000 BID Admission and Anticipated Discharge Date Admission Date: July 13, 2019 Subjective Patient is and examined. He is awake and alert in no distress. He is comfortable on nasal cannula. He does have a weak sounding cough. Patient does tell me he feels significantly improved since he yesterday. He has been afebrile overnight. He is mildly hypotensive but appears to be asymptomatic from this. I do appreciate general surgery evaluation, patient is cleared from their standpoint for discharge status post inguinal lymph node resection postoperative day #1. Physical Exam Constitutional: cooperative; no acute distress Neck: trachea midline, no thyromegaly Respiratory: normal respiratory effort Auscultation: + diminished lung sounds and + crackles (Mild but diffuse, no wheeze); no rhonchi and no wheezes Cardiovascular: Rate/Rhythm: regular rate and regular rhythm Heart Sounds: normal S1, normal S2 and + murmur Gastrointestinal (Abdomen): Inspection/Auscultation: abdomen normal to inspection Percussion/Palpation: abdomen soft; abdomen nontender, no guarding, abdomen not rigid and no hepatosplenomegaly Skin: no rashes, warm and dry Genitourinary: Reilly catheter, dark pink-tinged urine with sediment in tubing and bag Results & Data Results & Data ([facility]) Vital Signs (Past 12 Hours) Vital Signs Temp Pulse Pulse Pulse Resp BP BP 07/14/19 10:05 82 07/14/19 07:26 37.0 C 89 22 98/57 L 07/14/19 07:10 84 18 07/14/19 06:09 84 16 07/14/19 05:08 87 80/47 L 07/14/19 03:43 36.8 C 90 22 88/50 L 86/51 L 07/14/19 03:15 86 18 07/13/19 23:32 36.7 C 88 24 118/68 07/13/19 23:18 95 H 20 Pulse Ox 07/14/19 10:05 07/14/19 07:26 90 07/14/19 07:10 94 07/14/19 06:09 94 07/14/19 05:08 07/14/19 03:43 93 07/14/19 03:15 96 07/13/19 23:32 96 07/13/19 23:18 96 PG Care Time/CCT Total # of Minutes Spent Total Time Spent with Patient: Total time spent is greater than 50% in coordination of care (as documented) at patient's floor/unit and/or counseling patient: Coding Level of Care Code 44856 Subseq Hosp Care Lvl 2 Diagnoses Acute respiratory failure with hypoxia J96.01 Elevated serum creatinine R79.89 Lymphadenopathy, inguinal R59.0 Leukopenia D72.819 Leukopenia type: unspecified Hypertension I10 Hypertension type: essential hypertension Dyslipidemia E78.5 BPH (benign prostatic hyperplasia) N40.0 Lower urinary tract symptom presence: symptoms absent GERD (gastroesophageal reflux disease) K21.9 Esophagitis presence: esophagitis presence not specified Hydronephrosis N13.30 Hydronephrosis type: unspecified DVT prophylaxis Z29.9 (1) Hydronephrosis Hydronephrosis type: unspecified Qualified Code(s): N13.30 - Unspecified hydronephrosis (2) BPH (benign prostatic hyperplasia) Lower urinary tract symptom presence: symptoms absent Qualified Code(s): N40.0 - Benign prostatic hyperplasia without lower urinary tract symptoms (3) Leukopenia Leukopenia type: unspecified Qualified Code(s): D72.819 - Decreased white blood cell count, unspecified (4) GERD (gastroesophageal reflux disease) Esophagitis presence: esophagitis presence not specified Qualified Code(s): K21.9 - Gastro-esophageal reflux disease without esophagitis (5) Hypertension Hypertension type: essential hypertension Qualified Code(s): I10 - Essential (primary) hypertension
--- NOTE | 2019-07-14 10:42 | Electrocardiogram Report ---
Test Reason : Blood Pressure : / mmHG Vent. Rate : 137 BPM Atrial Rate : 136 BPM P-R Int : 000 ms QRS Dur : 094 ms QT Int : 296 ms P-R-T Axes : 000 052 004 degrees QTc Int : 446 ms Poor data quality, interpretation may be adversely affected Sinus tachycardia Cannot rule out Inferior infarct , age undetermined Abnormal ECG When compared with ECG of 13-JUL-2019 05:47, (unconfirmed) Vent. rate has increased BY [address] more depressed Anterior leads T wave inversion no longer evident in Anterior leads Confirmed by Jam Morris ([id number]) on 07/14/2019 10:42:12 AM Referred By: Carmelo Matthew Confirmed By:Jam Morris
[2019-07-14] MEDS: PANTOprazole 40 MG in SYRINGE 0 ML IV SCH (11:10)
--- NOTE | 2019-07-14 11:45 | Progress Note ---
Date of Service July 14, 2019 Assessment & Plan Admission and Anticipated Discharge Date Admission Date: July 13, 2019 Subjective 74-year-old male, established with Dr. Morgan for BPH and yearly PSA screening, last seen in January 2019. In the past couple of months patient has developed inguinal swelling leading to an evaluation including CT scan imaging and recent right inguinal lymph node biopsy. CT demonstrates large left upper abdominal mass, retroperitoneal adenopathy encasing the aorta and the left ureter with some involvement of the IVC. 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 This seems to have led to left renal atrophy and severe hydronephrosis implying at least several months of involvement. Patient noted to have a bump in baseline creatinine since last summer with his values now in the range of 2.3-2.8 versus less than 1.3 last year. Patient has been admitted after aspiration in the perioperative context after lymph node biopsy. Care is discussed with the hospitalist service. In the context of the ongoing coronavirus pandemic, our service is trying to avoid in person consultations when possible. On review of the patient's chart and imaging I suspect that there is relatively little renal reserve to be salvaged in the left kidney. In addition, the bulk of the patient's retroperitoneal disease makes him more likely to suffer difficulties with stent malfunction due to extrinsic precious ria even after placement. I suspect ultimately the solution to his difficulties will be appropriate oncological management of his disease pending tissue diagnosis. Patient's creatinine is currently fluctuating in the high twos but if it continues to rise further then perhaps stent could be attempted. I suspect that the risk-benefit ratio of transfer for a percutaneous nephrostomy into his atrophic kidney would not be worthwhile. We remain available to see the patient in person, arrange for outpatient follow- up via telemedicine or in person as needed or for stent placement if it seems that this would indeed improve his global renal function. Thank you for allowing us to participate in this patient's acute care. Results & Data ([facility]) Vital Signs (Past 12 Hours) Vital Signs Temp Pulse Pulse Pulse Resp BP BP 07/14/19 10:59 81 18 07/14/19 10:52 36.8 C 84 18 96/54 L 07/14/19 10:05 82 07/14/19 07:26 37.0 C 89 22 98/57 L 07/14/19 07:10 84 18 07/14/19 06:09 84 16 07/14/19 05:08 87 80/47 L 07/14/19 03:43 36.8 C 90 22 88/50 L 86/51 L 07/14/19 03:15 86 18 Pulse Ox 07/14/19 10:59 96 07/14/19 10:52 96 07/14/19 10:05 07/14/19 07:26 90 07/14/19 07:10 94 07/14/19 06:09 94 07/14/19 05:08 07/14/19 03:43 93 07/14/19 03:15 96
[2019-07-14] MEDS: FINASTERIDE 5 MG TAB PO SCH (20:57)
[2019-07-14] MEDS: ALFUZOSIN HCL 10 MG TAB PO SCH (20:57)
[2019-07-14] MEDS: ATENOLOL 50 MG TABLET PO SCH (20:57)
[2019-07-15] MEDS: ALBUT/IPRATROP 3MG/0.5MG NEB 3 ML VIAL NEB SCH ×3 (03:02→10:47)
[2019-07-15] MEDS: PIPERACILLIN/TAZOBACTAM 3.375 GM in DEXTROSE 5% 100 ML IV SCH (04:44)
[2019-07-15 06:59] LABS: Basophils # (auto) 0.01 K/uL (0-0.2); Basophils % (auto) 0.1 %; Eosinophils % (auto) 2.6 %; Hematocrit (blood only) 26.5 % (42-52); Hemoglobin 9.2 g/dL (14.0-18.0); Immature Granulocytes # (auto) 0.01 K/uL (0.00-0.02); Immature Granulocytes % (auto) 0.1 %; Lymphocytes # (auto) 0.39 K/uL (1.2-3.4); Lymphocytes % (auto) 5.1 %; Mean Corpuscular Hemoglobin 31.4 pg (25-34); Mean Corpuscular Hgb Conc 34.7 g/dL (32-36); Mean Corpuscular Volume 90.4 fL (80-100); Monocytes # (auto) 0.43 K/uL (0.11-0.59); Monocytes % (auto) 5.6 %; Neutrophils # (auto) 6.64 K/uL (1.4-6.5); Neutrophils % (auto) 86.5 %; Platelet Count 117 K/uL (130-400); Red Blood Count 2.93 M/uL (4.7-6.1); White Blood Count 7.68 K/uL (4.8-10.8)
[2019-07-15 07:36] LABS: BUN Creatinine Ratio 19.5 (10-20); Calcium 8.6 mg/dl (8.5-10.1); Creatinine Clr Calc Pharmacy 23.3 ml/min; Est GFR (African American) 25.7; Est GFR (Non-African American) 22.2; Potassium 3.4 mmol/L (3.5-5.1)
--- NOTE | 2019-07-15 08:35 | Surgery Progress Note ---
Date of Service July 15, 2019 Assessment & Plan (1) Lymphadenopathy, inguinal: POD 2 inguinal lymph node biopsy dispo per medicine [facility] covering the weekend if there are any issues Subjective no c/o, he wants to go home Physical Exam Gastrointestinal (Abdomen): Inspection/Auscultation: + abdominal surgical incision (clean, dry) Results & Data Vital Signs (Past 12 Hours) Vital Signs Temp Pulse Pulse Pulse Resp BP BP 07/15/19 07:30 86 07/15/19 07:17 36.6 C 90 20 105/65 07/15/19 07:04 84 16 07/15/19 03:52 36.3 C L 92 H 22 115/67 07/15/19 03:05 91 H 18 07/14/19 23:50 36.7 C 107 H 18 115/62 07/14/19 23:01 95 H 18 Pulse Ox 07/15/19 07:30 07/15/19 07:17 92 07/15/19 07:04 96 07/15/19 03:52 96 07/15/19 03:05 95 07/14/19 23:50 95 07/14/19 23:01 95 PG Care Time/CCT Total # of Minutes Spent Total Time Spent with Patient: Total time spent is greater than 50% in coordination of care (as documented) at patient's floor/unit and/or counseling patient: Coding Level of Care Code None Diagnoses Lymphadenopathy, inguinal R59.0
[2019-07-15] MEDS: SUCRALFATE 1 GM/10 ML UDC PO SCH (09:02)
[2019-07-15] MEDS: HEPARIN SOD 5,000 UNIT/0.5 ML VIAL SQ SCH (09:06)
[2019-07-15] MEDS: PANTOprazole 40 MG in SYRINGE 0 ML IV SCH (10:57)
--- NOTE | 2019-07-15 11:08 | Discharge Summary ---
Date of Service July 15, 2019 Admission HPI Per Admitting Provider 74yo male with h/o HTN, BPH, chronic tremor dating back to his teenage years, prior aortic valve endocarditis, and suspected lymphoma who presented today for left inguinal excisional lymph node biopsy by Dr Matthew. In the last few weeks he has undergone work-up for suspected lymphoma with finney-CT chest/abd/pelvis. Per the operative record and speaking with anesthesia the procedure was uneventful. He received about 750cc of lactated ringers in total. Anesthesia - MAC. Per the anesthesiologist there was no vomiting episode or apparent aspiration event. Upon my arrival in the [facility] the patient was visibly dyspneic and tachypneic. He reported that he "felt fine" prior to his surgery today. He asked repeatedly "what's wrong?" Denied any fever, chills, cough, or dyspnea prior to the surgery today. He does have ALEXANDER with climbing a flight of steps but he states this is chronic for him. I spoke to the patient's by phone after my admission assessment and apparently sometime following dinner last evening the patient did c/o dyspnea to his but he was not visibly short of breath. Patient denies any recent LE edema or weight gain. Patient's also reports that the patient takes large amounts of TUMS on a daily basis for reflux symptoms. He c/o frequent heartburn/dyspepsia symptoms along with stomach aches. He has had these symptoms for at least a year. During my admission assessment I gave lasix 20mg IV x 1, chest x-ray was obtained (my reading - pulmonary edema), switched his oxymask to high-flow NC, and gave duoneb x 1. Following these maneuvers he reported feeling better with less dyspnea. Had 500cc of urine output immediately following the lasix. Admission Exam Per Admitting Provider + acute distress, average body habitus and + frail appearing; no altered mental status tachypneic, dyspneic, using accessory muscles Eyes: PERRL lens implant left eye ENMT: Mouth: no oral mucosal abnormality and oral mucous membranes not dry Neck: trachea midline, no thyromegaly Respiratory: + respiratory distress, + retractions, + uses accessory muscles, + cough and + tachypneic Auscultation: + crackles (bibasilar ) and + wheezes Cardiovascular: Rate/Rhythm: regular rhythm and + tachycardic Heart Sounds: normal S2; no murmur Vessels: + JVD, posterior tibial pulses present and dorsa lis pedis pulses present Extremities: no edema Gastrointestinal (Abdomen): Inspection/Auscultation: + abdomen distended (mild) and normal bowel sounds Percussion/Palpation: no hepatosplenomegaly Musculoskeletal: no cyanosis or clubbing, extremities motor strength 5/5 Skin: no rashes, warm and dry left inguinal region incision clean/dry/intact Neurologic: deep tendon reflexes 2+ bilaterally and moves all extremities (5/5) Motor/Sensory: + tremor (right arm mainly ) Psychiatric: Orientation: alert and oriented x 3 Affect: + anxious affect Genitourinary: normal male genitalia; garcia in place Lymphatic: no cervical lymphadenopathy Principal Diagnosis 1. Status post biopsy of inguinal lymph node 2. Acute aspiration with likely aspiration pneumonia during procedure 3. Severe GERD 4. 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 BPH by history 6. Hypertension by history Discharge Exam Constitutional cooperative; no acute distress Neck trachea midline, no thyromegaly Respiratory normal respiratory effort Auscultation: + diminished lung sounds (Faint breath sounds, is moving air. Fine rales at bases with minimal rhonchi. Overall improved from previous.), + rales and + rhonchi Cardiovascular Rate/Rhythm: regular rate and regular rhythm Heart Sounds: normal S1 and normal S2 Gastrointestinal (Abdomen) Inspection/Auscultation: abdomen normal to inspection Percussion/Palpation: abdomen soft; abdomen nontender, no guarding, abdomen not rigid and no hepatosplenomegaly Skin no rashes, warm and dry Discharge Data Allergies Allergy/AdvReac Type Severity Reaction Status Date / Time No Known Allergies Allergy Unknown Verified 07/13/19 05:57 Consultations 07/13/19 09:27 Consult Hospitalist Stat Procedures Performed Operation Date: 07/13/19 07:00 Actual Procedures p Left Inguinal Lymph Node Biopsy(Left) - Carmelo Matthew DO, FACS Hospital Course (1) Acute respiratory failure with hypoxia: Patient was initially admitted after he suffered from acute respiratory failure post procedure. Patient initially required high flow nasal cannula but over 48 hours was weaned to room air. On the day of discharge she was at 93% on room air. To stop was ordered to see if the patient had home oxygen requirements prior to his discharge. Patient was started empirically on Zosyn for questionable aspiration. He seemed to have good response to this. He is mobilizing secretions and is producing thick mucus with a strong cough. Plan will be to transition over to oral Augmentin to finish a full 7-day course antibiotics. (2) Elevated serum creatinine: Creatinine is 2.69 today, seems to be elevated from previous baseline of around 1.3. No real improvement since presentation. No significant hypotension was documented since admission until earlier yesterday morning was systolic blood pressure dropped into the 80s. Blood pressure since normalized. Patient was previously on an CAMILA inhibitor and HCTZ, both are not held. Hematuria noted, urinalysis taken yesterday consistent with Garcia trauma. CT scan noted, patient has a large mesenteric mass along with retroperitoneal lymphadenopathy. This appears to be encasing the left ureter causing severe left hydronephrosis. Per laboratory work, renal function did not appear to be improving as his creatinine was stable although significantly above baseline. I did discuss this with urology who did not feel the patient would benefit from either a ureteral stent or a percutaneous nephrostomy unless the patient was having significantly worsening renal failure. On discharge, renal function will need to be monitored closely along with symptoms, with possible referral to urology as an outpatient if symptoms worsen. (3) Lymphadenopathy, inguinal: Cleared for discharge from a surgical perspective per their service. (4) Leukopenia: Chronic, dating back several years. Current leukopenia 2nd suspected lymphoma. (5) Hypertension: Patient's CAMILA inhibitor and hydrochlorothiazide both held. He can continue on atenolol for now. Blood pressure does remain low normal. Will defer to outpatient attending if further agents need to be added. (6) Dyslipidemia: Not on statin therapy or other agent at this time. (7) BPH (benign prostatic hyperplasia): Cont home meds including alfuzosin and finasteride. Garcia. (8) GERD (gastroesophageal reflux disease): Per 's report - severe, daily symptoms. Start PPI. Start carafate qid. Troponin is ordered to rule out a cardiac origin, 2 sets have been nondetectable. (9) Hydronephrosis: left-sided on CT abd/pelvis from June. Due to obstruction from lymph nodes. See above. (10) DVT prophylaxis: heparin 5000 BID Total Time Total Time Spent Total Time Spent (In Minutes): Preparation for discharge in excess of 30 minutes Discharge Plan Discharge Items Patient Disposition: Home - Self-Care Reason For Visit: Localized Enlarged Lymph Node Discharge Diagnosis: 1. left inguinal lymph node biopsy 2. acute aspiration during biopsy with evidence of pneumonia 3. 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 Hypertension by history Condition on Discharge: Good Activity: Per Instructions section Lifting: No more than 10 pounds Bathing Comment: may shower starting 07/14/19; no soaking in tubs Exercise/Sports: Wait until after follow-up appointment Driving/Machine Use: do not resume driving while taking narcotics for pain Non-emergency contact: Primary Care Provider and Surgeon Call non-emergency contact if: you have any medication questions, your symptoms worsen, your pain is not controlled, you have a fever, your temperature is above 101.5, your wound has increased redness, your wound has increased drainage and your wound pain has increased Follow-up/Referrals: Gaurav Garcia MD [Primary Care Provider] - (Call for appointment within 1 week) Carmelo Matthew DO, FACS [Physician] - (Please call to schedule for a follow up within 2 weeks) Diet: Regular Addtl Attending Provider Instructions: Please do not take Tylenol while taking the narcotic Percocet. Both of these medications contain Acetaminophen and you should not exceed 3grams of Acetaminophen within a 24hour time period. Pending Studies at Discharge: Yes Studies:: surgical pathology Stand-Alone Forms: My [facility] Medications and DC Order Prescriptions: New oxycodone-acetaminophen [Percocet] 5-325 mg tablet 1 - 2 tab PO .q4-6h PRN (Reason: pain, for initial therapy, max 6 tabs per day) Qty: 15 RF: 0 omeprazole 40 mg capsule,delayed release(DR/EC) 40 mg PO DAILY 28 Days Qty: 28 RF: 0 amoxicillin-pot clavulanate [Augmentin] 875-125 mg tablet 1 tab PO Q12H Qty: 14 RF: 0 sucralfate 1 gram tablet 1 gm PO TID 28 Days Qty: 84 RF: 0 Continued atenolol 50 mg tablet 50 mg PO QPM RF: 0 finasteride 5 mg tablet 5 mg PO QPM RF: 0 alfuzosin 10 mg tablet extended release 24 hr 10 mg PO QPM RF: 0 Discontinued lisinopril 20 mg tablet 20 mg PO QPM RF: 0 hydrochlorothiazide 25 mg tablet 25 mg PO QPM RF: 0 acetaminophen [Tylenol Extra Strength] 500 mg Tablet 1,000 mg PO Q6H PRN (Reason: Pain) RF: 0 Discharge Orders: Discharge Order (Routine); Ordered 07/15/19 Ordered By: Shan Lane Admission Data Admit Date/Time: 07/13/19 10:26 Attending Provider: Shan Lane Admit Provider: Reggie Schultz Primary Care Provider: Gaurav Garcia Other Providers: Reggie Schultz Coding Level of Care Code D/C Day Management >30 mins Diagnoses Acute respiratory failure with hypoxia J96.01 Elevated serum creatinine R79.89 Lymphadenopathy, inguinal R59.0 Leukopenia D72.819 Leukopenia type: unspecified Hypertension I10 Hypertension type: essential hypertension Dyslipidemia E78.5 BPH (benign prostatic hyperplasia) N40.0 Lower urinary tract symptom presence: symptoms absent GERD (gastroesophageal reflux disease) K21.9 Esophagitis presence: esophagitis presence not specified Hydronephrosis N13.30 Hydronephrosis type: unspecified DVT prophylaxis Z29.9
== END 2019-07-15 12:35 | disposition home or self-care (01) | DRG 987 ==
LOC: ASU 05:32 → SUATTDRO 10:26 → 2S 10:26

== ENCOUNTER 2019-08-08 08:18 | Inpatient (IN) ==
[2019-08-08] MEDS ORDERED: ACETAMINOPHEN 325 MG TAB PO PRN ×2 (10:05→18:00)
[2019-08-08] MEDS ORDERED: POLYETHYLENE (MIRALAX) 17 GM PACK PO PRN (10:05)
[2019-08-08] MEDS ORDERED: ALUMINUM/MAGNESIUM SUSP 30 ML UDC PO PRN (10:05)
[2019-08-08] MEDS ORDERED: SODIUM CHLORIDE 0.9% IV PRN ×2 (10:30→10:31)
[2019-08-08] MEDS ORDERED: DIPHENHYDRAMINE IV PRN (10:30)
[2019-08-08] MEDS ORDERED: DEXAMETHASONE SOD PHOSPHATE IV PRN (10:31)
[2019-08-08 10:36] LABS: Eosinophils # (auto) 0.01 K/uL (0-0.5); Eosinophils % (auto) 0.2 %; Immature Granulocytes # (auto) 0.05 K/uL (0.00-0.02); Immature Granulocytes % (auto) 0.8 %; Lymphocytes # (auto) 0.56 K/uL (1.2-3.4); Mean Corpuscular Hemoglobin 30.1 pg (25-34); Mean Corpuscular Hgb Conc 34.5 g/dL (32-36); Mean Corpuscular Volume 87.3 fL (80-100); Mean Platelet Volume 8.8 fL (7.4-10.4); Monocytes % (auto) 6.5 %; Neutrophils # (auto) 5.18 K/uL (1.4-6.5); Neutrophils % (auto) 83.5 %; Platelet Count 197 K/uL (130-400); RDW Coefficient of Variation 13.7 % (11.5-14.5); Red Blood Count 3.32 M/uL (4.7-6.1)
[2019-08-08 11:11] LABS: Alanine Aminotransferase 17 U/L (12-78); Albumin Level 2.6 gm/dl (3.4-5.0); Aspartate Aminotransferase 27 U/L (15-37); BUN Creatinine Ratio 26.1 (10-20); Blood Urea Nitrogen 51 mg/dl (7-18); Calcium 9.4 mg/dl (8.5-10.1); Carbon Dioxide 21 mmol/L (21-32); Chloride 108 mmol/L (98-107); Est GFR (African American) 37.9; Est GFR (Non-African American) 32.7; Glucose 142 mg/dl (70-99); Potassium 4.3 mmol/L (3.5-5.1); Sodium 138 mmol/L (136-145); Uric Acid 7.7 mg/dl (2.6-7.2)
[2019-08-08 11:14] LABS: Albumin Globulin Ratio 0.7 (0.9-2); Alkaline Phosphatase 100 U/L (45-117); Bilirubin,Total 0.2 mg/dl (0.2-1); Globulin 3.5 gm/dl (2.5-4.0); Total Protein 6.1 gm/dl (6.4-8.2)
--- NOTE | 2019-08-08 12:13 | Consultation Report ---
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 HISTORY OF PRESENT ILLNESS: Mr. Jarquin is a very pleasant 74-year-old gentleman, originally evaluated by Dr. Betancourt earlier in July, in the midst of workup for non-Hodgkin's lymphoma. PET scan had been done, which unfortunately did not yield much additional helpful information. Previous CT scan of chest, abdomen and pelvis indicated he suffers from significant bulky disease. His pathology was confirmed late last week. I actually saw him on 08/02 to be precise. Fortunately, while he is suffering from general decline, he denied B symptoms at the time of the office visit. I actually started him a day or two earlier with the oral prednisone to help get him through the weekend and to serve as a pretreatment for rituximab moving forward. By current treatment guidelines, double hit lymphomas in younger and more healthy patients can be treated with R-EPOCH versus R-CHOP. Because of his advanced age, we have opted for the latter. The patient is being admitted because of high risk of tumor lysis and the need for close observation moving forward. Dr. Suh has been kind enough to admit him to the hospitalist service. Preliminary labs as well as echocardiogram were ordered by me this morning. PAST MEDICAL HISTORY: For the most part is benign. He had a history of endocarditis and the new diagnosis of double hit non-Hodgkin's lymphoma. PAST SURGICAL HISTORY: None. HOME MEDICATIONS: Include oxycodone 5/325 p.o. p.r.n., Augmentin 875/125 mg 1 p.o. b.i.d., alfuzosin 10 mg p.o. daily, sucralfate oral 1 gram p.o. t.i.d., atenolol 50 mg p.o. daily, Proscar 5 mg p.o. daily, omeprazole 40 mg p.o. daily. ALLERGIES: No known drug allergies. SOCIAL HISTORY: He is retired. He is a nonsmoker, nondrinker. FAMILY HISTORY: Noncontributory. REVIEW OF SYSTEMS: As per HPI. CONSTITUTIONAL: General clinical decline. Positive for anorexia, mild loss of weight. No fevers, chills or sweats, however. SKIN: No rashes or lesions. No history of dermatoses. HEENT: Negative for headaches, lightheadedness or dizziness. No acute visual or hearing deficits. He does have a right eye strabismus. No dysphagia or sore throat reported. LYMPHATICS: Positive for lymphadenopathy detected radiographically consistent with his lymphoproliferative disorder. CARDIAC: No significant heart history. He denies any current angina or palpitations. PULMONARY: No history of COPD. He is not acutely short of breath, dyspneic or orthopneic. No cough or hemoptysis. GASTROINTESTINAL: Negative for abdominal pain, nausea, vomiting, diarrhea or constipation, hematochezia or melena stools. GENITOURINARY: Recently had an indwelling Reilly catheter placed, I suspect, because of BPH. MUSCULOSKELETAL: No arthralgias or myalgias. No skeletal pain. ENDOCRINE: Negative for diabetes or thyroid disease. NEUROLOGIC: Negative for seizure, stroke, or migraine headache. HEMATOLOGIC: Negative for anemia, thrombophilia or bleeding diathesis. Positive for anemia. PHYSICAL EXAMINATION: GENERAL: A 74-year-old gentleman, lying supine in bed in no acute distress. VITAL SIGNS: Stable. HEENT: Head is atraumatic, normocephalic. Eyes: PERRLA, EOMI. Sclerae nonicteric. No conjunctival injection. Nares are patent without rhinorrhea or discharge. Throat is clear. Tongue is midline. Mucous membranes are moist. NECK: Supple without JVD or thyromegaly. LYMPHATICS: No palpable cervical or supraclavicular lymph nodes. HEART: Regular rate and rhythm. No clicks, rubs, murmurs or gallops. LUNGS: Clear to auscultation bilaterally. ABDOMEN: Soft, nontender, nondistended. No rigidity or guarding. No palpable hepatosplenomegaly. EXTREMITIES: He has a swollen right lower extremity that I actually saw on the . Avtar reports having Dopplers done by his primary provider; however, with the bulky lymphadenopathy in the inguinal region, I suspect more lymphatic flow obstruction, which should improve once we begin treatment. NEUROLOGIC: He is awake, alert and oriented x3. Cranial nerves II-XII are grossly intact. LABORATORY DATA: WBC count 6200, hemoglobin 10.0, platelet count 197,000. The chemistries and rest of electrolytes are pending at this time. RADIOGRAPHIC DATA: CT scan of the abdomen and pelvis from 06/27/2019 reveals a relatively large mesenteric mass measuring 14.5 x 9 x 13 cm. There is bulky confluent retroperitoneal lymphadenopathy also seen. There is a dominant mesenteric mass that encases the superior mesenteric vein. Bulky confluent retroperitoneal lymphadenopathy was also seen. Left-sided hydronephrosis because of lymphadenopathy encasing the left ureter. Bulky adenopathy specifically in the right iliac distribution, less so on the left side. Again, PET scan done thereafter, for the most part reports the same; however, the study was suboptimal. IMPRESSION: 1. Double hit diffuse large B-cell lymphoma. 2. High risk for tumor lysis. 3. Urinary obstruction. PLAN: Mr. Jarquin is a very pleasant 74-year-old gentleman well known to [facility], originally evaluated by Dr. Betancourt and has switched to my service because of his impending departure. I actually saw Mr. Jarquin on 08/02, at which time he was doing reasonably well, but clearly from a radiographic and clinical standpoint needs to begin induction therapy. Again, by current NCCN guidelines, double hit lymphomas tend to be aggressive and therefore, in younger healthier patients, R-EPOCH is utilized. In older patients such as Mr. Jarquin, R-CHOP is a much safer option. Mr. Jarquin has considerable bulky disease, thus high risk for tumor lysis. He was started on allopurinol 300 mg p.o. daily. He also started his oral prednisone yesterday at my instruction to alleviate the potential for infusion reaction attributable to rituximab. Echocardiogram was performed back on the 24 of July and reportedly with an adequate ejection fraction. This report will be reviewed prior to administration of chemotherapy. Discussed Mr. Jarquin directly with Dr. Suh and preliminary labs have been drawn to start treatment as soon as possible. I anticipate Mr. Jarquin to be hospitalized at least for 3-4 days. My goal is to get him out before the weekend. We will continue to follow along with you on a daily basis until discharge. Thank you very much for assisting me in the care of this very pleasant gentleman. If you have any questions or concerns, feel free to contact me at any time.
[2019-08-08] MEDS ORDERED: dexAMETHasone 4 MG TAB PO SCH (14:00)
[2019-08-08] MEDS ORDERED: ACETAMINOPHEN 325 MG TAB PO SCH (14:00)
[2019-08-08] MEDS: SUCRALFATE 1 GM TAB PO SCH ×2 (14:22→21:37)
[2019-08-08] MEDS ORDERED: SODIUM CHLORIDE 0.9% IV SCH ×4 (14:30→19:30)
[2019-08-08] MEDS ORDERED: DiphenhydrAMINE HCL 50 MG/ML VIAL IV PRN ×2 (14:30→18:00)
[2019-08-08] MEDS ORDERED: MEPERIDINE HCL 25 MG/ML CARP/VIAL IV PRN (14:30)
[2019-08-08] MEDS ORDERED: SODIUM CHLORIDE 0.9% 1000ML 1,000 ML IV PRN (14:30)
[2019-08-08] MEDS ORDERED: RITUXIMAB IV SCH (14:30)
[2019-08-08] MEDS: OXYCODONE HCL IR 5 MG TAB (IMMEDIATE RELEASE) PO PRN (17:14)
[2019-08-08] MEDS ORDERED: PALONOSETRON 0.25 MG in SYRINGE 0 ML IV SCH (18:00)
[2019-08-08] MEDS ORDERED: FOSAPREPITANT DIMEGLUMINE IV SCH (18:00)
[2019-08-08] MEDS ORDERED: DOXORUBICIN HCL IV SCH (18:45)
[2019-08-08] MEDS ORDERED: VINCRISTINE SULFATE IV SCH (19:00)
--- NOTE | 2019-08-08 19:01 | History & Physical Report ---
Date of Service August 08, 2019 Assessment & Plan (1) 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: Patient admitted for [facility], prehospital has been begun on allopurinol and prednisone therapy will be hydrated based on the protocol (2) Complication, blocked Reilly catheter: Patient is a chronic indwelling Reilly catheterization chronic prostatitis that his catheter changed on August 04 urine culture from that was negative. The catheter was changed due to feelings it was not draining appropriately With the patient's BPH he remains on Proscar and alfuzosin (3) Hypertension: Patient remains on atenolol 50 mg a day (4) GERD (gastroesophageal reflux disease): Patient states she does continue taking sucralfate 3 times a day in addition to his omeprazole (5) DVT prophylaxis: Lovenox will be used for DVT prevention Admission and Anticipated Discharge Date Admission Date: August 08, 2019 History of Present Illness Primary Care Provider: Bry Garcia MD This patient is a 74-year-old male who was a direct admission under the direction of oncology to treat non-Hodgkin's lymphoma with significant bulky disease in his abdomen patient has had decreased appetite patient currently has no focused complaints or problems he does have a baseline strabismus Allergies Allergy/AdvReac Type Severity Reaction Status Date / Time No Known Allergies Allergy Unknown Verified 08/04/19 23:50 Home Medications Home Medications Medication Instructions Recorded Confirmed Type alfuzosin 10 mg PO QPM 07/06/19 08/04/19 History atenolol 50 mg PO QPM 07/06/19 08/04/19 History finasteride 5 mg PO QPM 07/06/19 08/04/19 History sucralfate 1 gm PO TID 28 Days #84 tab 07/15/19 08/04/19 Rx omeprazole 40 mg PO QAM 07/21/19 08/04/19 History allopurinol 300 mg PO DAILY 08/04/19 08/04/19 History oxycodone [Roxicodone] 10 mg PO DIRECTED PRN 08/04/19 08/04/19 History Past Med/Surg History Medical History 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 Matthew 07/13/2019 History of anesthesia reaction ASPIRATED DURING LYMPH NODE BIOPSY History of cataract surgery LEFT History of colonoscopy History of open reduction and internal fixation (ORIF) procedure RT LEG History of tooth extraction Port-A-Cath in place (07/27/19) Insertion of Mediport in Right Internal Jugular Vein with Fluoroscopy Dr. Matthew 07/27/19 Family History Mother Hypertension History of CVA (cerebrovascular accident) Father Unknown family medical history Lung disease Brother Unknown family medical history Sister Dementia Alcohol abuse Family/Other No problems noted. Denies family history of Prostate cancer Colorectal cancer Social History Preferred Language: Wallisian Communication Ability: Effective Superior Court Clerk Required: No Beliefs That Will Affect Care: None marital status: Current Living Situation: Spouse Current Living Situation Comment: with current occupational status: retired current occupation: Patient retired from the school district in 2019. Other Information That Helps Us Care for You: No Feels Safe at Home: Yes Safety Concerns: Feels Safe At This Time Smoking Status: Former smoker Tobacco Type: cigarettes ; packs per day: 1 ; Do You Dip or Chew Tobacco: No ; Second Hand Exposure: No ; Tobacco Cessation Education Requested by Patient: No Hx Alcohol Use: No Hx Substance Use: No Review of Systems Review of Systems: Mild to moderate distress and persistent fatigue no headache, there is some baseline strabismus of his eyes no speech or swallowing issues no chest pain, pressure or palpitations no shortness of breath, cough or wheezes Mild generally diffuse lower abdominal pain, no nausea or vomiting, does complain of some constipation no dysuria, hematuria or frequency no focal joint pain or swelling no back pain, CVA tenderness or radicular pain no bruising, bleeding or rashes no focal signs of weakness or numbness or altered sensation no complaints or anxiety or depression Physical Exam Physical Exam: The patient appeared well nourished and normally developed. Vital signs as documented. Head exam is unremarkable. No scleral icterus Neck is without JVD, thyromegaly, or carotid bruits. Lungs are clear to auscultation, no focal loss of breath sounds Cardiac exam, Rhythm is regular.. No murmurs, rubs or gallops. Abdominal exam reveals normal bowel sounds, soft non tender, no masses Extremities are nonedematous and both pedal pulses are normal. Neurologic exam is alert and oriented, no focal loss of strength or sensation Skin is without bruises or rashes Psychologically is without concerns for anxiety or depression Results & Data Results & Data ([facility]) Vital Signs (Past 12 Hours) Vital Signs Temp Pulse Resp BP Pulse Ox 08/08/19 18:26 74 20 123/62 97 08/08/19 18:00 72 18 124/68 98 08/08/19 17:44 79 20 132/67 98 08/08/19 17:15 79 20 138/74 98 08/08/19 17:00 76 20 139/79 98 08/08/19 16:45 60 18 127/68 96 08/08/19 16:30 60 16 129/64 95 08/08/19 16:15 64 18 132/63 96 08/08/19 16:00 63 18 125/65 96 08/08/19 15:45 64 18 121/64 96 08/08/19 15:30 97.7 F 64 18 128/68 96 08/08/19 15:15 98.1 F 66 18 130/68 96 08/08/19 15:00 97.5 F L 65 18 124/68 95 Code Status & VTE Plan VTE Prophylaxis Plan VTE Prophylaxis will be ordered: Yes PG Care Time/CCT Total # of Minutes Spent Total Time Spent with Patient: Total time spent is greater than 50% in coordination of care (as documented) at patient's floor/unit and/or counseling patient: Coding Level of Care Code 69047 Initial Inpt Care Lvl 2 Diagnoses 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 C85.18 Complication, blocked Reilly catheter T83.091A Encounter type: initial encounter Hypertension I10 Hypertension type: essential hypertension GERD (gastroesophageal reflux disease) K21.9 Esophagitis presence: esophagitis presence not specified DVT prophylaxis Z29.9 (1) Complication, blocked Reilly catheter Encounter type: initial encounter Qualified Code(s): T83.091A - Other mechanical complication of indwelling urethral catheter, initial encounter (2) Hypertension Hypertension type: essential hypertension Qualified Code(s): I10 - Essential (primary) hypertension (3) GERD (gastroesophageal reflux disease) Esophagitis presence: esophagitis presence not specified Qualified Code(s): K21.9 - Gastro-esophageal reflux disease without esophagitis
[2019-08-08] MEDS ORDERED: CYCLOPHOSPHAMIDE IV SCH (19:30)
[2019-08-08] MEDS ORDERED: HEPARIN 100 UNIT/ML 5ML FLUSH ONE (21:30)
[2019-08-08] MEDS: FINASTERIDE 5 MG TAB PO SCH (21:36)
[2019-08-08] MEDS: ATENOLOL 50 MG TABLET PO SCH (21:36)
[2019-08-08] MEDS: ALFUZOSIN HCL 10 MG TAB PO SCH (21:36)
[2019-08-08] MEDS: ENOXAPARIN INJ 40 MG/0.4 ML SYR SQ SCH (21:37)
[2019-08-09] MEDS ORDERED: ALUMINUM/MAGNESIUM SUSP 30 ML UDC PO PRN (06:00)
[2019-08-09] MEDS: HEPARIN 100 UNIT/ML 5ML FLUSH FLUSH PRN (07:40)
[2019-08-09 07:48] LABS: Hematocrit (blood only) 25.9 % (42-52); Hemoglobin 8.9 g/dL (14.0-18.0); Immature Granulocytes # (auto) 0.04 K/uL (0.00-0.02); Immature Granulocytes % (auto) 0.4 %; Lymphocytes # (auto) 0.27 K/uL (1.2-3.4); Lymphocytes % (auto) 2.4 %; Mean Corpuscular Hemoglobin 30.5 pg (25-34); Mean Corpuscular Volume 88.7 fL (80-100); Mean Platelet Volume 8.3 fL (7.4-10.4); Monocytes # (auto) 0.07 K/uL (0.11-0.59); Monocytes % (auto) 0.6 %; Neutrophils # (auto) 10.82 K/uL (1.4-6.5); Neutrophils % (auto) 96.6 %; Platelet Count 181 K/uL (130-400); RDW Coefficient of Variation 13.8 % (11.5-14.5); RDW Standard Deviation 44.1 fL (36.4-46.3); Red Blood Count 2.92 M/uL (4.7-6.1)
[2019-08-09] MEDS: PANTOprazole 40 MG TAB PO SCH (07:52)
[2019-08-09] MEDS: SUCRALFATE 1 GM TAB PO SCH ×3 (07:52→20:01)
[2019-08-09] MEDS: allopurinoL 300 MG TAB PO SCH (07:52)
[2019-08-09 07:58] LABS: Mean Corpuscular Hgb Conc 34.4 g/dL (32-36)
[2019-08-09 08:04] LABS: Calcium 8.2 mg/dl (8.5-10.1); Creatinine Clr Calc Pharmacy 38.4 ml/min; Est GFR (African American) 43.2; Est GFR (Non-African American) 37.3; Potassium 4.6 mmol/L (3.5-5.1); Uric Acid 7.2 mg/dl (2.6-7.2)
--- NOTE | 2019-08-09 08:38 | Hospitalist Progress Note ---
Date of Service August 09, 2019 Assessment & Plan (1) 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: Patient admitted for [facility], prehospital has been begun on allopurinol and prednisone therapy will be hydrated based on the protocol with surveillance of uric acid and renal function with concern for tumor lysis syndrome. Patient will not require additional prednisone therapy as per oncology's recommendations (2) Complication, blocked Reilly catheter: Patient is a chronic indwelling Reilly catheterization chronic prostatitis that his catheter changed on August 04 urine culture from that was negative. The catheter was changed due to feelings it was not draining appropriately With the patient's BPH he remains asymptomatic while on Proscar and alfuzosin (3) Hypertension: Patient remains on atenolol 50 mg a day (4) GERD (gastroesophageal reflux disease): Patient will continue taking sucralfate 3 times a day in addition to his omeprazole (5) DVT prophylaxis: Lovenox will be used for DVT prevention (6) Chronic kidney disease, stage 3 (moderate): this is chronic and stable Admission and Anticipated Discharge Date Admission Date: August 08, 2019 Subjective Patient seems in good spirits he has no complaints or problems he is tolerating his first 24 hours of chemotherapy without much effect there is some concern about tumor lysis syndrome and patient be hydrated over the next 24 hours with evaluation of renal function and uric acid Review of Systems Review of Systems: Mild distress and fatigue no headache, blurry or double vision no speech or swallowing issues no chest pain, pressure or palpitations no shortness of breath, cough or wheezes no significant change in abdominal pain, nausea or vomiting, diarrhea or constipation no dysuria, hematuria or frequency no focal joint pain or swelling no back pain, CVA tenderness or radicular pain no bruising, bleeding or rashes no focal signs of weakness or numbness or altered sensation no complaints or anxiety or depression Physical Exam Physical Exam: The patient appeared well nourished and normally developed. Vital signs as documented. Head exam is unremarkable. No scleral icterus Neck is without JVD, thyromegaly, or carotid bruits. Lungs are clear to auscultation, no focal loss of breath sounds Cardiac exam, Rhythm is regular.. No murmurs, rubs or gallops. Abdominal exam reveals normal bowel sounds, soft only with mildly tender lower abdomen, no easily palpable masses Extremities are nonedematous and both pedal pulses are normal. Neurologic exam is alert and oriented, no focal loss of strength or sensation Skin is without bruises or rashes Psychologically is without concerns for anxiety or depression Results & Data Results & Data ([facility]) Vital Signs (Past 12 Hours) Vital Signs Temp Pulse Resp BP Pulse Ox 08/09/19 07:35 97.3 F L 65 20 123/70 96 08/09/19 04:14 97.7 F 58 L 19 123/69 93 08/08/19 23:42 97.7 F 57 L 18 123/66 96 08/08/19 23:15 97.7 F 58 L 17 115/53 L 94 08/08/19 21:09 97.9 F 69 18 113/62 96 08/08/19 20:38 98.2 F 69 18 117/66 95 PG Care Time/CCT Total # of Minutes Spent Total Time Spent with Patient: Total time spent is greater than 50% in coordination of care (as documented) at patient's floor/unit and/or counseling patient: Coding Level of Care Code 04566 Subseq Hosp Care Lvl 2 Diagnoses 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 C85.18 Complication, blocked Reilly catheter T83.091A Encounter type: initial encounter Hypertension I10 Hypertension type: essential hypertension GERD (gastroesophageal reflux disease) K21.9 Esophagitis presence: esophagitis presence not specified DVT prophylaxis Z29.9 Chronic kidney disease, stage 3 (moderate) N18.3 (1) GERD (gastroesophageal reflux disease) Esophagitis presence: esophagitis presence not specified Qualified Code(s): K21.9 - Gastro-esophageal reflux disease without esophagitis (2) Hypertension Hypertension type: essential hypertension Qualified Code(s): I10 - Essential (primary) hypertension (3) Complication, blocked Reilly catheter Encounter type: initial encounter Qualified Code(s): T83.091A - Other mechanical complication of indwelling urethral catheter, initial encounter
--- NOTE | 2019-08-09 09:08 | Progress Notes ---
DATE: 08/09/2019 DIAGNOSES: 1. Double-hit diffuse large B-cell lymphoma. 2. Day #2 R-CHOP chemotherapy. 3. High risk for tumor lysis syndrome. 4. Urinary obstruction. SUBJECTIVE: The patient was seen and examined at bedside. He reports a good night with no difficulties with chemotherapy. He complains of sour stomach and subacute onset of hiccups. Labs were just drawn prior to my visit and thus no comparison values. Nursing reports no overnight difficulties. As long as his labs are satisfactory, we will continue with chemotherapy. He reports no pain issues at present. OBJECTIVE: GENERAL: A very pleasant 74-year-old gentleman, in no acute distress. VITAL SIGNS: Temperature 36.3, pulse 65, respiratory rate 20, blood pressure 123/70. SKIN: Without rash or lesion. HEENT: Oral mucosa without erythema or ulceration. HEART: Regular rate and rhythm. LUNGS: Clear to auscultation bilaterally. ABDOMEN: Soft, nontender, nondistended without palpable hepatosplenomegaly. EXTREMITIES: No clubbing, cyanosis or edema. NEUROLOGIC: Grossly intact. LABORATORY DATA: Pending. IMPRESSION: 1. Double-hit diffuse large B-cell lymphoma. 2. Day 2 R-CHOP chemotherapy. 3. Hiccups. 4. Pyrosis. 5. Urinary obstruction. PLAN: We will complete the remainder of chemotherapy started late yesterday. He is complaining of sour stomach and thus would respectfully request the addition of proton pump inhibition if not already on therapy. He also developed hiccups here in the last couple of hours and if they persist, baclofen 10 mg p.o. b.i.d. may prove to be helpful. As long as his electrolytes remain stable over the next 24-48 hours, he may be on schedule to return home before week's end. He will also require Neulasta 6 mg subQ upon completion of chemotherapy. Overall, very pleased with his progress thus far. We will continue to follow him on a daily basis. Thank you again for assisting me in the care of this very pleasant gentleman. RIKKI
[2019-08-09] MEDS: predniSONE 50 MG TAB PO SCH (09:37)
[2019-08-09] MEDS: SODIUM CHLORIDE 0.9% 1000ML 1,000 ML IV SCH ×2 (11:09→18:19)
[2019-08-09] MEDS: ONDANSETRON INJ 2 MG/ML 2 ML VIAL IV PRN (18:17)
[2019-08-09] MEDS: ATENOLOL 50 MG TABLET PO SCH (20:01)
[2019-08-09] MEDS: FINASTERIDE 5 MG TAB PO SCH (20:01)
[2019-08-09] MEDS: ENOXAPARIN INJ 40 MG/0.4 ML SYR SQ SCH (20:01)
[2019-08-09] MEDS: ALFUZOSIN HCL 10 MG TAB PO SCH (20:01)
[2019-08-09] MEDS ORDERED: PEGFILGRASTIM 6 MG/0.6 ML SYR SQ SCH (22:00)
[2019-08-10] MEDS: SODIUM CHLORIDE 0.9% 1000ML 1,000 ML IV SCH (02:23)
[2019-08-10 05:11] LABS: Hematocrit (blood only) 23.4 % (42-52); Hemoglobin 8.2 g/dL (14.0-18.0); Immature Granulocytes # (auto) 0.03 K/uL (0.00-0.02); Immature Granulocytes % (auto) 0.4 %; Lymphocytes # (auto) 0.19 K/uL (1.2-3.4); Lymphocytes % (auto) 2.4 %; Mean Corpuscular Hemoglobin 31.3 pg (25-34); Mean Corpuscular Volume 89.3 fL (80-100); Mean Platelet Volume 8.6 fL (7.4-10.4); Monocytes # (auto) 0.16 K/uL (0.11-0.59); Neutrophils # (auto) 7.47 K/uL (1.4-6.5); Neutrophils % (auto) 95.2 %; Platelet Count 142 K/uL (130-400); RDW Coefficient of Variation 13.8 % (11.5-14.5); RDW Standard Deviation 44.9 fL (36.4-46.3); Red Blood Count 2.62 M/uL (4.7-6.1); White Blood Count 7.85 K/uL (4.8-10.8)
[2019-08-10 05:33] LABS: BUN Creatinine Ratio 34.7 (10-20); Calcium 7.9 mg/dl (8.5-10.1); Creatinine Clr Calc Pharmacy 43.3 ml/min; Est GFR (Non-African American) 43.2; Potassium 4.5 mmol/L (3.5-5.1); Uric Acid 6.6 mg/dl (2.6-7.2)
[2019-08-10] MEDS ORDERED: SODIUM CHLORIDE 0.9% 250 ML IV PRN (07:48)
[2019-08-10] MEDS: ONDANSETRON INJ 2 MG/ML 2 ML VIAL IV PRN (08:16)
[2019-08-10] MEDS: predniSONE 50 MG TAB PO SCH (08:17)
[2019-08-10] MEDS: allopurinoL 300 MG TAB PO SCH (08:17)
[2019-08-10] MEDS: PANTOprazole 40 MG TAB PO SCH (08:17)
[2019-08-10] MEDS: SUCRALFATE 1 GM TAB PO SCH (08:18)
[2019-08-10] MEDS ORDERED: PEGFILGRASTIM 6 MG/0.6 ML SYR SQ SCH (09:00)
[2019-08-10] MEDS ORDERED: FUROSEMIDE 20 MG in SYRINGE 0 ML IV ONE (09:00)
[2019-08-10] MEDS: HEPARIN 100 UNIT/ML 5ML FLUSH FLUSH PRN (09:23)
--- NOTE | 2019-08-10 09:23 | Progress Notes ---
DATE: 08/10/2019 DIAGNOSES: 1. Double-hit diffuse large B-cell lymphoma. 2. Status post R-CHOP chemotherapy. 3. High risk for tumor lysis syndrome. 4. Pyrosis. 5. Intermittent hiccups. SUBJECTIVE: The patient is seen and examined at bedside. While eating breakfast, continues to complain of pyrosis, which I suspect attributable to high dose prednisone, which will complete tomorrow. He denies any pain per se. The patient has been moving about and should be able to go home later on today. His labs, specifically uric acid, are satisfactory. He will continue allopurinol for the next couple of weeks nonetheless. Nursing reports no overnight difficulties. OBJECTIVE: GENERAL: The patient is a very pleasant 74-year-old gentleman, in no acute distress. VITAL SIGNS: Temperature 36.4, pulse 67, respiratory rate 20, blood pressure 132/62. SKIN: Without rash or lesion. HEENT: Oral mucosa without buccal lesions or erythema. HEART: Regular rate and rhythm. LUNGS: Clear to auscultation bilaterally. ABDOMEN: Soft, nontender, nondistended. EXTREMITIES: No clubbing, cyanosis or edema. NEUROLOGICAL: Grossly intact. LABORATORY DATA: WBC count 7850, hemoglobin 8.2, platelet count 142,000. Absolute neutrophil count 7470. Sodium 141, potassium 4.5, chloride 112, carbon dioxide 23, creatinine 1.55, BUN 54. Uric acid 6.6. IMPRESSION: 1. Double-hit diffuse large B-cell lymphoma. 2. Status post R-CHOP chemotherapy. 3. Hiccups. 4. Pyrosis. PLAN: I visited with the patient this morning and definitely feel he is doing better than I expected. Not troubled by his serum chemistries; however, he is mildly anemic and I have asked the hospitalist service to proceed with 2 units of packed RBCs before he returns home. I definitely anticipate further myelosuppression. He received Neulasta subcutaneously, which hopefully will result in a brief period of neutropenia. In regards to his ongoing pyrosis and hiccups, I would appreciate if you'd send him home on proton pump inhibitor and perhaps baclofen 10 mg p.o. b.i.d. for hiccups. The patient will be scheduled for followup prior to cycle number 2 in about 19 days. He is to contact our office should he develop any issues, particularly low grade fever or adverse effects attributable to chemotherapy. Thank you very much for assisting me in the care of this very nice gentleman. RIKKI
[2019-08-10] MEDS ORDERED: Nursing to Pharmacy Communication ONE (09:28)
[2019-08-10] MEDS ORDERED: SUCRALFATE 1 GM/10 ML UDC PO SCH (14:00)
--- NOTE | 2019-08-10 15:28 | Discharge Summary ---
Date of Service August 10, 2019 Admission HPI Per Admitting Provider This patient is a 74-year-old male who was a direct admission under the direction of oncology to treat non-Hodgkin's lymphoma with significant bulky disease in his abdomen patient has had decreased appetite patient currently has no focused complaints or problems he does have a baseline strabismus Principal Diagnosis non Hodgkin lymphoma chemotherapy associated anemia Discharge Exam The patient appeared well Vital signs as documented. Lungs are clear to auscultation and appear unlabored Cardiac exam, Rhythm is regular.. No murmurs, rubs or gallops. Abdominal exam reveals normal bowel sounds, soft non tender, no masses Extremities are nonedematous and both pedal pulses are normal. 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 Patient will not require additional prednisone therapy as per oncology's recommendations (2) Complication, blocked Reilly catheter: Patient is a chronic indwelling Reilly catheterization chronic prostatitis that his catheter changed on August 04 urine culture from that was negative. The catheter was changed due to feelings it was not draining appropriately With the patient's BPH he remains asymptomatic while on Proscar and alfuzosin (3) Hypertension: Patient remains on atenolol 50 mg a day (4) GERD (gastroesophageal reflux disease): Patient will continue taking sucralfate in addition to his omeprazol, pt requested that his medication be changed to liquid form (5) Chronic kidney disease, stage 3 (moderate): this is chronic and stable Total Time Total Time Spent Total Time Spent (In Minutes): It required greater than 30 minutes to prepare this patient for discharge. Personally phoned the patient's prior to discharge explaining his blood transfusion and answering all questions. Discharge Plan Discharge Items Patient Disposition: Home - Home Health Services Reason For Visit: CHEMO Discharge Diagnosis: chemotherapy for lymphoma chemotherapy associated anemia Activity: Resume your previous activity Non-emergency contact: Primary Care Provider and Oncologist Call non-emergency contact if: you have any medication questions and your rectal temperature is above 100.4 Follow-up/Referrals: Gaurav Garcia MD [Primary Care Provider] - Matti Fisher V., [Physician] - 08/30/19 9:00 am (Please, follow up at [facility] with Dr. Fisher on ThursdayAugust 29 at 9:00 am. *The clinic is located in the REAR of this hospital. You will park BEHIND the hospital in [address] and enter via [facility]. If you need to change this appointment, call the office at [phone].) Diet: Regular Addtl Attending Provider Instructions: please rest and recover plenty of rest and good food follow up with Dr Fisher Pending Studies at Discharge: No Stand-Alone Forms: [employer], Smoking Cessation Medications and DC Order Prescriptions: New sucralfate 100 mg/mL suspension 5 ml PO QID Qty: 420 RF: 3 Continued omeprazole 40 mg Capsule,Delayed Release(Dr/Ec) 40 mg PO QAM RF: 0 oxycodone [Roxicodone] 5 mg Tablet 10 mg PO DIRECTED PRN (Reason: Pain) RF: 0 atenolol 50 mg tablet 50 mg PO QPM RF: 0 alfuzosin 10 mg tablet extended release 24 hr 10 mg PO QPM RF: 0 No Action allopurinol 300 mg Tablet 300 mg PO DAILY RF: 0 finasteride 5 mg tablet 5 mg PO QPM RF: 0 Discharge Orders: Discharge Order (Routine); Ordered 08/10/19 Ordered By: Chon Suh Admission Data Admit Date/Time: 08/08/19 09:25 Attending Provider: Chon Suh Admit Provider: Chon Suh Primary Care Provider: Gaurav Garcia Other Providers: Matti Fisher V. 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
[2019-08-10] MEDS: OXYCODONE HCL IR 5 MG TAB (IMMEDIATE RELEASE) PO PRN (17:13)
== END 2019-08-10 20:50 | disposition home health service (06) | DRG 699 ==
LOC: 2W 09:25

== ENCOUNTER 2019-09-23 16:09 | Inpatient (IN) ==
[2019-09-23] MEDS ORDERED: cefTRIAXone SODIUM 1,000 MG/50 ML BAG IV STA (16:32)
[2019-09-23] MEDS ORDERED: SODIUM CHLORIDE 0.9% 1000ML 500 ML IV ONE (16:39)
[2019-09-23] MEDS ORDERED: OPTIRAY 320 125ml IV PRN (17:15)
--- NOTE | 2019-09-23 17:18 | History & Physical Report ---
Date of Service September 23, 2019 Assessment & Plan (1) Bilateral pulmonary embolism: - Admit to tele - CTA reviewed : The pulmonary trunk is normal in caliber. The main pulmonary arteries are clear. There are filling defects within the left upper and left lower lobe pulmonary arteries which extend into segmental and subsegmental branches. There is also thrombus within the right upper, middle, and lower lobar pulmonary arteries which extend into segmental and subsegmental branches. - There is a likely pulmonary infarct involving the left anterior upper lobe with groundglass consolidation - Start on heparin gtt now - no hx of bleeding - Oncology consulted - Dr. Fisher - Incentive spirometry, flutter, encourage ambulation once breathing improved. 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 Confluent adenopathy throughout the retroperitoneum which encases the abdominal aorta, IVC, and left ureter now measures a maximum of 8 cm in transverse diameter (previously measuring over 12 cm). The residual mesenteric lesion anterior to the pancreas now measures a pproximately 9 x 2 cm (previously measuring 13 x 9 cm). -anemia appears to be baseline with hgb = 10.7, follow am cbc, heparin gtt as above (3) Chronic kidney disease, stage 3 (moderate): - chronic and stable (4) BPH (benign prostatic hyperplasia): - Cont Proscar and alfuzosin - Had garcia changed in the ER on 09/21/19. (5) Hypertension: - Cont on atenolol 50 mg a day (6) GERD (gastroesophageal reflux disease): - Cont sucralfate, omeprazole (7) Dyslipidemia: - not on statin therapy (8) Chronic indwelling Garcia catheter: - Follows with Dr. Andrade, in place for chronic prostatitis. Last changed on 09/21/2019 as it was blocked and not draining, which has been a problem in the past. - UA sent, appears dirty, dose of ceftriaxone given in the ER, will contine abx, follow culture (9) DVT prophylaxis: -Heparin drip CODE: DNR Dispo: From home, likely to remain in the hospital x 1-2 days History of Present Illness Primary Care Provider: Bry Garcia MD This is a 74 yo M with PMhx of large B-cell lymphoma, currently getting chemotherapy with R-CHOP last dose was approximately 4 weeks ago, HTN, BPH with Garcia in place, GERD, who presents to the ER with worsening weakness, shortness of breath and difficulty taking deep breaths which started 2 days ago and has progressively worsened. He has home health nurses visiting him several days per week, and yesterday they scheduled an appointment with his oncologist, but then he canceled it. This morning visiting nurses reevaluated him and noticed that he had more difficulty with shortness of breath and called and got a appointment rescheduled for earlier today. He was sent over from the [facility] [place] for further work-up. Patient was found to have bilateral PE on CTA and has been started on heparin drip. Allergies Allergy/AdvReac Type Severity Reaction Status Date / Time No Known Allergies Allergy Unknown Verified 09/21/19 08:17 Home Medications Home Medications Medication Instructions Recorded Confirmed Type atenolol 50 mg PO QPM 07/06/19 09/23/19 History alfuzosin 10 mg tablet,extended 10 mg PO QPM #90 tab 09/07/19 09/23/19 Rx release 24 hr finasteride 5 mg tablet 5 mg PO QPM #90 tab 09/07/19 09/23/19 Rx sucralfate 1 gram tablet 1 gm PO BID #60 tab 09/16/19 09/23/19 Rx ciprofloxacin HCl [Cipro] 500 mg PO BID #28 tab 09/21/19 09/23/19 Rx ondansetron HCl 8 mg PO BID 09/21/19 09/23/19 History baclofen 10 mg PO BID PRN 09/23/19 09/23/19 History lactobacillus combination no.4 3,000 mmu cells PO DAILY 09/23/19 09/23/19 History [Probiotic] Past Med/Surg History Medical History 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 Matthew 07/13/2019 History of anesthesia reaction ASPIRATED DURING LYMPH NODE BIOPSY History of cataract surgery LEFT History of colonoscopy History of open reduction and internal fixation (ORIF) procedure RT LEG History of tooth extraction Port-A-Cath in place (07/27/19) Insertion of Mediport in Right Internal Jugular Vein with Fluoroscopy Dr. Matthew 07/27/19 Family History Mother Hypertension History of CVA (cerebrovascular accident) Father Unknown family medical history Lung disease Brother Unknown family medical history Sister Dementia Alcohol abuse Family/Other No problems noted. Denies family history of Prostate cancer Colorectal cancer Social History Preferred Language: Spanish Communication Ability: Effective Bowling Floor Manager Required: No Beliefs That Will Affect Care: None marital status: Current Living Situation: Spouse Current Living Situation Comment: with current occupational status: retired current occupation: Patient retired from the school district in 2019. Other Information That Helps Us Care for You: No Feels Safe at Home: Yes Safety Concerns: Feels Safe At This Time Smoking Status: Former smoker Tobacco Type: cigarettes ; packs per day: 1 ; Do You Dip or Chew Tobacco: No ; Second Hand Exposure: No ; Tobacco Cessation Education Requested by Patient: No Hx Alcohol Use: No Hx Substance Use: No Review of Systems Review of Systems: Constitutional: No fever, sweats, + chills last night Eyes: No diplopia, no worsening or blurred vision ENT: normal hearing, no trouble swallowing Respiratory: No cough, sputum, + dyspnea at rest and on exertion, + worsening sob, + difficulty with deep breaths Cardiovascular: No chest pain, tightness or palpitations Abdomen: No pain, nausea, vomiting, diarrhea or constipation Musculoskeletal: No joint pain, calf pain, swelling Neurologic: + generalized weakness,no numbness/tingling, or balance problems Psychiatric: No anxiety or depression Skin: No rash or itch Physical Exam Physical Exam: General: awake, alert, no apparent distress Head: Normocephalic, atraumatic ENT: PERRL, Left EOMI, R eye without intact EOM which is chronic, no pharyngeal exudate, mucous membranes moist Chest: + Diminished at bases, + faint rales bibasilarly, on 2L via NC, no wheeze Cardiac: Regular rate and rhythm, no murmur, no JVD, normal peripheral pulses, good capillary refill Abdominal: NABS x 4 quadrants, soft, nondistended, nontender to palpation, no rebound, guarding or tenderness : Garcia catheter in place draining clear yellow urine Extremities: Normal inspection, + RLE 2+ pitting edema, LLE no edema, no peripheral erythema, calfs nontender to palpation Psych: Normal mood and affect Neuro: AAO x 3, no gross motor deficits, speech is clear, no peripheral sensory deficits Results & Data Results & Data ([facility]) Vital Signs (Past 12 Hours) Vital Signs Temp Pulse Resp BP Pulse Ox 09/23/19 16:50 89 L 09/23/19 16:12 36.5 C 97 H 18 142/73 H [address] ANGIOGRAM OF THE CHEST; CT SCAN OF THE ABDOMEN AND PELVIS WITH IV CONTRAST CLINICAL HISTORY: Atypical chest pain. Generalized abdominal pain. Lymphoma. COMPARISON STUDY: Chest CT dated 06/27/2019. Abdominal CT dated 06/27/2019. PET CT dated 08/03/2019. TECHNIQUE: Following the IV administration of 118 of Optiray 320, CT angiogram of the chest is performed from the upper abdomen to the thoracic inlet utilizing the pulmonary embolus protocol. Images are reviewed in the axial, sagittal, coronal planes. 3-D MIPS images are created and assessed. Subsequently, CT scan of the abdomen and pelvis was performed from the lung bases to the proximal femora. Images are reviewed in the axial, sagittal, and coronal planes. IV contrast was administered without complication. A dose lowering technique was utilized adhering to the principles of ALARA. The examination is degraded by motion artifact. CT DOSE: 868.67 mGy.cm FINDINGS: CHEST: Thyroid: Imaged portions of the thyroid gland are normal in size and attenuation. Thoracic aorta: The thoracic aorta is normal in caliber and demonstrates bovine variant arch anatomy. No dissection is seen. Pulmonary vasculature: The pulmonary trunk is normal in caliber. The main pulmonary arteries are clear. There are filling defects within the left upper and left lower lobe pulmonary arteries which extend into segmental and subsegmental branches. There is also thrombus within the right upper, middle, and lower lobar pulmonary arteries which extend into segmental and subsegmental branches. Heart: A right internal jugular central venous infusion port is in place. The heart is enlarged and without pericardial effusion. The coronary arteries are densely calcified. Lungs and pleural spaces: There is wedge-shaped subpleural groundglass consolidation identified in the anterior left upper lobe on image #176. Foci of subpleural consolidation are also present throughout the right upper lobe and in the anterior right middle lobe. There are trace pleural effusions with dependent atelectasis. Mediastinum: There is no mediastinal lymphadenopathy. Sophie: Clear. Axillae: There is no axillary lymphadenopathy. Bony thorax: The skeletal structures are osteopenic. Mild degenerative change and scoliosis are noted throughout the thoracic spine. Mild superior plate compression deformities are noted in the upper to midthoracic region. No lytic or blastic lesions are identified. ABDOMEN AND PELVIS: Liver: The contrast-enhanced liver is normal in size, contour, and attenuation. There is no intrahepatic or ductal dilatation. The hepatic veins and portal veins are patent. Scattered subcentimeter hepatic hypodensities likely represent cysts but are too small for definitive characterization. Gallbladder: Unremarkable. Spleen: The spleen is mildly enlarged measuring 13.9 cm in length. Pancreas: Atrophic and grossly unremarkable. Adrenal glands: Unremarkable. Kidneys: There is markedly asymmetric cortical atrophy of the left kidney as compared to the right. There is moderate left-sided hydronephrosis which is improved from 06/27/2019. There is heterogeneous enhancement of the left kidney as compared the right. Renal cysts measure up to 3.1 cm. Additional subcentimeter cortical hypodensities also likely represent cysts but are too small for definitive characterization. Abdominal vasculature: There is advanced atherosclerotic calcification mild ectasia of the abdominal aorta. Stomach and bowel: A small hiatal hernia contains trace fluid. The duodenum is normal in configuration. There is no bowel obstruction. There is mild colonic diverticulosis without CT evidence of acute diverticulitis. There is mild nonspecific gaseous distention of the colon. A structure that likely resents a normal appendix is seen in the right lower quadrant on image #347. Mild wall thickening is suggested throughout the colon, greatest involving the left colon. Question faint pericolonic infiltration. Peritoneum: There is a small volume of pelvic ascites. No intraperitoneal free air is seen. Lymphadenopathy: Mesenteric, retroperitoneal, iliac chain, an inguinal lymphadenopathy has markedly improved as compared to 08/03/2019. Confluent adenopathy throughout the retroperitoneum which encases the abdominal aorta, IVC, and left ureter now measures a maximum of 8 cm in transverse diameter (previously measuring over 12 cm). The residual mesenteric lesion anterior to the pancreas now measures approximately 9 x 2 cm (previously measuring 13 x 9 cm). Pelvic viscera: The prostate gland is markedly enlarged and heterogeneous. There is median lobe hypertrophy. The bladder is decompressed around a Garcia catheter. The wall appears thickened and trabeculated indicating chronic outlet obstruction. Pericystic inflammation is noted in the mucosa appears hyperemic. Skeletal structures: The skeletal structures are osteopenic. There is moderate lumbosacral spondylosis. There are mild compression deformities of T12 and L1. No lytic or blastic lesions are seen. IMPRESSION: 1. Bilateral pulmonary emboli as above. 2. Cardiomegaly. 3. There is subpleural wedge-shaped groundglass consolidation in the anterior left upper lobe, likely representing a pulmonary infarct. 4. Additional foci of subpleural groundglass consolidation are seen in the right lung as above. This could also represent developing pulmonary infarct versus an infectious/inflammatory pneumonitis. Clinical correlation will be required. 5. Trace pleural effusions with dependent atelectasis. 6. Abdominopelvic lymphadenopathy has markedly improved as compared to 08/03/2019. 7. There is moderate left-sided hydronephrosis. This has significantly improved from prior examinations. 8. Question a mild nonspecific colitis. Clinical correlation will be required. 9. Prostatomegaly with evidence of chronic bladder outlet obstruction. There is pericystic inflammation and mucosal hyperemia. Correlate clinically and with urinalysis for evidence of cystitis. 10. There is a small volume of pelvic ascites. 11. Mild splenomegaly. 12. Additional findings as above. Code Status & VTE Plan Code Status DNR -discussed with patient at bedside Supervising Physician Co-Signing Physician Notes I personally saw and examined the patient. I verified all carrion points and agree with ANTONIO Chakraborty with the following exceptions and/or additions: 74 yo male with large B cell lymphoma with weakness, shortness of breath. Although patient notes he has felt like this with chemotherapy and feels similar today to how he was 4 weeks prior. However home health nurses noticed him to be acutely more short of breath today. He does ROS - postive for loose brown stool diarrhea (no acute change, ongoing since starting diarrhea, not watery) O/E no respiratory distress, Reduced air entry bibasal (otherwise CTAB), RRR, RLE 1+ pitting edema > LLE although patient reports this is chronic ever since a leg fracture in his 40s, no phlegmasia cerulea dolens A/P Bilateral PEs - started on heparin standard IV drip without bolus, cancelled oncology consult, recommend just discussing with Dr Fisher over the phone for preferred anticoagulation regimen Of note patient reports he will be leaving AMA tomorrow if not discharged. He was highly encouraged to do physical therapy and talking to the physician prior to making this decision Diarrhea - monitor for now, if watery test for c. 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 C85.18 Chronic kidney disease, stage 3 (moderate) N18.3 BPH (benign prostatic hyperplasia) N40.0 Lower urinary tract symptom presence: symptoms absent Hypertension I10 Hypertension type: essential hypertension GERD (gastroesophageal reflux disease) K21.9 Esophagitis presence: esophagitis presence not specified Dyslipidemia E78.5 Chronic indwelling Garcia catheter Z97.8 DVT prophylaxis Z29.9 (1) BPH (benign prostatic hyperplasia) Lower urinary tract symptom presence: symptoms absent Qualified Code(s): N40.0 - Benign prostatic hyperplasia without lower urinary tract symptoms (2) GERD (gastroesophageal reflux disease) Esophagitis presence: esophagitis presence not specified Qualified Code(s): K21.9 - Gastro-esophageal reflux disease without esophagitis (3) Hypertension Hypertension type: essential hypertension Qualified Code(s): I10 - Essential (primary) hypertension
--- NOTE | 2019-09-23 18:06 | CT Scan Report ---
CT ANGIOGRAM OF THE CHEST; CT SCAN OF THE ABDOMEN AND PELVIS WITH IV CONTRAST CLINICAL HISTORY: Atypical chest pain. Generalized abdominal pain. Lymphoma. COMPARISON STUDY: Chest CT dated 06/27/2019. Abdominal CT dated 06/27/2019. PET CT dated 08/03/2019. TECHNIQUE: Following the IV administration of 118 of Optiray 320, CT angiogram of the chest is perfor med from the upper abdomen to the thoracic inlet utilizing the pulmonary embolus protocol. Images are reviewed in the axial, sagittal, coronal planes. 3-D MIPS images are created and assessed. Subsequen tly, CT scan of the abdomen and pelvis was performed from the lung bases to the proximal femora. Imag es are reviewed in the axial, sagittal, and coronal planes. IV contrast was administered without comp lication. A dose lowering technique was utilized adhering to the principles of ALARA. The examination is degraded by motion artifact. CT DOSE: 868.67 mGy.cm FINDINGS: CHEST: Thyroid: Imaged portions of the thyroid gland are normal in size and attenuation. Thoracic aorta: The thoracic aorta is normal in caliber and demonstrates bovine variant arch anatomy. No dissection is seen. Pulmonary vasculature: The pulmonary trunk is normal in caliber. The main pulmonary arteries are iker r. There are filling defects within the left upper and left lower lobe pulmonary arteries which exten d into segmental and subsegmental branches. There is also thrombus within the right upper, middle, an d lower lobar pulmonary arteries which extend into segmental and subsegmental branches. Heart: A right internal jugular central venous infusion port is in place. The heart is enlarged and w ithout pericardial effusion. The coronary arteries are densely calcified. Lungs and pleural spaces: There is wedge-shaped subpleural groundglass consolidation identified in th e anterior left upper lobe on image #176. Foci of subpleural consolidation are also present throughou t the right upper lobe and in the anterior right middle lobe. There are trace pleural effusions with dependent atelectasis. Mediastinum: There is no mediastinal lymphadenopathy. Sophie: Clear. Axillae: There is no axillary lymphadenopathy. Bony thorax: The skeletal structures are osteopenic. Mild degenerative change and scoliosis are noted throughout the thoracic spine. Mild superior plate compression deformities are noted in the upper to midthoracic region. No lytic or blastic lesions are identified. ABDOMEN AND PELVIS: Liver: The contrast-enhanced liver is normal in size, contour, and attenuation. There is no intrahepa tic or ductal dilatation. The hepatic veins and portal veins are patent. Scattered subcentimeter hepa tic hypodensities likely represent cysts but are too small for definitive characterization. Gallbladder: Unremarkable. Spleen: The spleen is mildly enlarged measuring 13.9 cm in length. Pancreas: Atrophic and grossly unremarkable. Adrenal glands: Unremarkable. Kidneys: There is markedly asymmetric cortical atrophy of the left kidney as compared to the right. T here is moderate left-sided hydronephrosis which is improved from 06/27/2019. There is heterogeneous e nhancement of the left kidney as compared the right. Renal cysts measure up to 3.1 cm. Additional sub centimeter cortical hypodensities also likely represent cysts but are too small for definitive charac terization. Abdominal vasculature: There is advanced atherosclerotic calcification mild ectasia of the abdominal aorta. Stomach and bowel: A small hiatal hernia contains trace fluid. The duodenum is normal in configuratio n. There is no bowel obstruction. There is mild colonic diverticulosis without CT evidence of acute d iverticulitis. There is mild nonspecific gaseous distention of the colon. A structure that likely res ents a normal appendix is seen in the right lower quadrant on image #[id number]. Mild wall thickening is sug gested throughout the colon, greatest involving the left colon. Question faint pericolonic infiltrati on. Peritoneum: There is a small volume of pelvic ascites. No intraperitoneal free air is seen. Lymphadenopathy: Mesenteric, retroperitoneal, iliac chain, an inguinal lymphadenopathy has markedly i mproved as compared to 08/03/2019. Confluent adenopathy throughout the retroperitoneum which encases t he abdominal aorta, IVC, and left ureter now measures a maximum of 8 cm in transverse diameter (previ ously measuring over 12 cm). The residual mesenteric lesion anterior to the pancreas now measures denia roximately 9 x 2 cm (previously measuring 13 x 9 cm). Pelvic viscera: The prostate gland is markedly enlarged and heterogeneous. There is median lobe hyper trophy. The bladder is decompressed around a Reilly catheter. The wall appears thickened and trabecula antonietta indicating chronic outlet obstruction. Pericystic inflammation is noted in the mucosa appears hy peremic. Skeletal structures: The skeletal structures are osteopenic. There is moderate lumbosacral spondylosi s. There are mild compression deformities of T12 and L1. No lytic or blastic lesions are seen. IMPRESSION: 1. Bilateral pulmonary emboli as above. 2. Cardiomegaly. 3. There is subpleural wedge-shaped groundglass consolidation in the anterior left upper lobe, likely representing a pulmonary infarct. 4. Additional foci of subpleural groundglass consolidation are seen in the right lung as above. This could also represent developing pulmonary infarct versus an infectious/inflammatory pneumonitis. Clin ical correlation will be required. 5. Trace pleural effusions with dependent atelectasis. 6. Abdominopelvic lymphadenopathy has markedly improved as compared to 08/03/2019. 7. There is moderate left-sided hydronephrosis. This has significantly improved from prior examinatio ns. 8. Question a mild nonspecific colitis. Clinical correlation will be required. 9. Prostatomegaly with evidence of chronic bladder outlet obstruction. There is pericystic inflammati on and mucosal hyperemia. Correlate clinically and with urinalysis for evidence of cystitis. 10. There is a small volume of pelvic ascites. 11. Mild splenomegaly. 12. Additional findings as above. ACT 112: Negative or not required by law. Electronically signed by: Oswaldo Ayala M.D. 09/23/2019 6:04 PM
[2019-09-23] MEDS ORDERED: Heparin IV Standard *NO* Bolus IV ONE (18:21)
[2019-09-23] MEDS ORDERED: HEPARIN SODIUM/DEXTROSE 25,000 UNITS/500 ML BAG IV SCH (18:30)
--- NOTE | 2019-09-23 18:54 | Emergency Department Note ---
History of Present Illness General Chief complaint: Weakness Stated complaint: WEAKNESS Time Seen by Provider: 09/23/19 16:30 Source: patient Mode of arrival: ambulatory Limitations: no limitations History of Present Illness This is a 74-year-old male who presents to the ED with a chief complaint of nausea and vomiting and decreased p.o. intake. He also feels weak. The patient states that he had a little shortness of breath as well. He was having some exertional dyspnea in addition to the above symptoms. Some of the history was obtained by the daughter. The patient was sent over for the cancer center because of concerns about dehydration and his other symptoms. Home Medications Home Medications Medication Instructions Recorded Confirmed Type atenolol 50 mg PO QPM 07/06/19 09/23/19 History alfuzosin 10 mg tablet,extended 10 mg PO QPM #90 tab 09/07/19 09/23/19 Rx release 24 hr finasteride 5 mg tablet 5 mg PO QPM #90 tab 09/07/19 09/23/19 Rx sucralfate 1 gram tablet 1 gm PO BID #60 tab 09/16/19 09/23/19 Rx ciprofloxacin HCl [Cipro] 500 mg PO BID #28 tab 09/21/19 09/23/19 Rx ondansetron HCl 8 mg PO BID 09/21/19 09/23/19 History baclofen 10 mg PO BID PRN 09/23/19 09/23/19 History lactobacillus combination no.4 3,000 mmu cells PO DAILY 09/23/19 09/23/19 History [Probiotic] Allergies Allergy/AdvReac Type Severity Reaction Status Date / Time No Known Allergies Allergy Unknown Verified 09/21/19 08:17 Past Med/Surg History Medical History 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 Matthew 07/13/2019 History of anesthesia reaction ASPIRATED DURING LYMPH NODE BIOPSY History of cataract surgery LEFT History of colonoscopy History of open reduction and internal fixation (ORIF) procedure RT LEG History of tooth extraction Port-A-Cath in place (07/27/19) Insertion of Mediport in Right Internal Jugular Vein with Fluoroscopy Dr. Matthew 07/27/19 Family History Mother Hypertension History of CVA (cerebrovascular accident) Father Unknown family medical history Lung disease Brother Unknown family medical history Sister Dementia Alcohol abuse Family/Other No problems noted. Denies family history of Prostate cancer Colorectal cancer Social History Preferred Language: Norwegian Communication Ability: Effective Rug Setter Velvet Required: No Beliefs That Will Affect Care: None marital status: Current Living Situation: Spouse Current Living Situation Comment: with current occupational status: retired current occupation: Patient retired from the school district in 2019. Other Information That Helps Us Care for You: No Feels Safe at Home: Yes Safety Concerns: Feels Safe At This Time Smoking Status: Former smoker Tobacco Type: cigarettes ; packs per day: 1 ; Do You Dip or Chew Tobacco: No ; Second Hand Exposure: No ; Tobacco Cessation Education Requested by Patient: No Hx Alcohol Use: No Hx Substance Use: No Review of Systems A total of 10 systems reviewed and were otherwise negative Physical Exam Vital Signs Vital Signs - 24 hr 09/23/19 16:12 09/23/19 16:50 09/23/19 17:00 Temperature 36.5 C Temperature Source Oral Pulse Rate 97 H 90 Pulse Rate from SpO2 Sensor 90 Respiratory Rate 18 24 Respiratory Effort / Characteristics Non-Labored Spontaneous Respiratory Depth Normal Respiratory Pattern Regular Blood Pressure 142/73 H 119/65 Blood Pressure Mean 96 89 Blood Pressure Position Sitting Pulse Oximetry 98 89 L 97 Oxygen Delivery Method Room Air Room Air Nasal Cannula Oxygen Flow Rate 2 Sepsis Recent Fever Within 48 Hours No Sepsis New/Unexplained Change in Mental Status No Sepsis Action Taken by Nursing No Action Required Oxygen Flow Rate - Titration 2 Pulse Oximetry Post Tiitration 97 09/23/19 17:02 Temperature Temperature Source Pulse Rate 89 Pulse Rate from SpO2 Sensor 94 H Respiratory Rate 25 H Respiratory Effort / Characteristics Respiratory Depth Respiratory Pattern Blood Pressure Blood Pressure Mean Blood Pressure Position Pulse Oximetry 98 Oxygen Delivery Method Nasal Cannula Oxygen Flow Rate 2 Sepsis Recent Fever Within 48 Hours Sepsis New/Unexplained Change in Mental Status Sepsis Action Taken by Nursing Oxygen Flow Rate - Titration Pulse Oximetry Post Tiitration CONSTITUTIONAL/VITAL SIGNS: Reviewed / noted above. GENERAL: Non-toxic in appearance. INTEGUMENTARY: Warm, dry, and [place]. HEAD: Normocephalic. EYES: without scleral icterus or trauma. ENT/OROPHARYNX: clear and moist. LYMPHADENOPATHY/NECK: Is supple without lymphadenopathy or meningismus. RESPIRATORY: Lungs clear and equal. CARDIOVASCULAR: Regular rate and rhythm. GI/ABDOMEN: Soft and nontender. No organomegaly or pulsatile mass. No rebound or guarding. Normal bowel sounds. EXTREMITIES: Warm and well perfused. BACK: No CVA tenderness. NEUROLOGICAL: Intact without focal deficits. PSYCHIATRIC: normal affect. MUSCULOSKELETAL: Normally developed with good muscle tone. TRIAGE NURSING DOCUMENTATION REVIEWED. Course Administered Medications Alfuzosin HCl (Uroxatral) 10 mg PO QPM [facility] Stop: 09/23/19 23:59 Last Admin: 09/23/19 21:20 Dose: 10 mg Documented by: [id number] Atenolol (Tenormin) 50 mg PO QPM [facility] Stop: 10/23/19 20:59 Last Admin: 09/23/19 21:21 Dose: 50 mg Documented by: [id number] Finasteride (Proscar) 5 mg PO QPM [facility] Stop: 10/23/19 20:59 Last Admin: 09/23/19 21:20 Dose: 5 mg Documented by: [id number] Heparin Sodium/Dextrose (Heparin Sodium/Dextrose) 25,000 units in 500 mls @ 24 mls/hr IV .[id number] [facility]; Protocol Stop: 10/23/19 18:29 Last Admin: 09/23/19 19:17 Dose: 1,200 units/hr, 24 mls/hr Documented by: [id number] Cosigned by: [id number] Ceftriaxone Sodium 1,000 mg/ (Dextrose) 50 mls @ 100 mls/hr IV Q24H [facility]; Protocol Stop: 10/03/19 20:59 Last Infusion: 09/23/19 22:04 Dose: 0 mls/hr Documented by: [id number] Admin: 09/23/19 21:19 Dose: 100 mls/hr Documented by: [id number] Sodium Chloride (Nss 1000ml) 1,000 mls @ 80 mls/hr IV .[id number] JEANMARIE Stop: 09/24/19 20:16 Last Admin: 09/23/19 21:21 Dose: 80 mls/hr Documented by: [id number] Ioversol (Optiray 320 125ml) 118 ml IV ONCE PRN PRN Reason: Interaction Checking Stop: 09/27/19 17:14 Last Admin: 09/23/19 17:16 Dose: 1 ml Documented by: [id number] Sucralfate (Carafate Tab) 1 gm PO BID JEANMARIE Stop: 10/23/19 20:59 Last Admin: 09/23/19 21:20 Dose: 1 gm Documented by: [id number] Discontinued Medications Heparin Sodium/Dextrose () 1 ea IV ONE ONE; Protocol Stop: 09/23/19 18:22 Last Admin: 09/23/19 19:18 Dose: Not Given Documented by: [id number] Ceftriaxone Sodium (Rocephin) 1,000 mg in 50 mls @ 100 mls/hr IV NOW STA Stop: 09/23/19 17:01 Last Admin: 09/23/19 17:12 Dose: Not Given Documented by: [id number] Sodium Chloride (Nss 1000ml) 500 mls @ 999 mls/hr IV .Q31M ONE Stop: 09/23/19 17:09 Last Infusion: 09/23/19 18:32 Dose: 0 mls/hr Documented by: [id number] Admin: 09/23/19 17:12 Dose: 999 mls/hr Documented by: [id number] Critical Care Time Critical Care Time: Yes Total Critical Care Time: 35 I have personally spent 35 minutes of critical care time in the direct management of this patient. This includes bedside care, interpretation of diagnostic studies, and testing, discussion with consultants, patient, and family members, and other required patient management activities. This 35 minutes is in excess of all separately billable procedures. Medical Decision Making Differential Diagnosis The differential was considered includes acute myocardial infarction, acute coronary syndrome, myocarditis, pericarditis, pericardial effusions /tamponad, esophageal perforation, pulmonary embolism, pneumonia, pneumothorax, cardiomyopathy, congestive heart, anemia , COPD/asthma exacerbation. Medical Records Attestation: I reviewed the patient's medical records. Home Medications Current Medication List: was personally reviewed by me Laboratory Data The patient had lab work earlier today. His white blood cell count is 7.45. Hemoglobin is 10.7. BUN is 19, creatinine is 1.3. Urine from a couple of days ago shows a UTI. He is currently on Cipro. Imaging Data Radiologist's Impression: IMPRESSION: 1. Bilateral pulmonary emboli as above. 2. Cardiomegaly. 3. There is subpleural wedge-shaped groundglass consolidation in the anterior left upper lobe, likely representing a pulmonary infarct. 4. Additional foci of subpleural groundglass consolidation are seen in the right lung as above. This could also represent developing pulmonary infarct versus an infectious/inflammatory pneumonitis. Clinical correlation will be required. 5. Trace pleural effusions with dependent atelectasis. 6. Abdominopelvic lymphadenopathy has markedly improved as compared to 08/03/2019. 7. There is moderate left-sided hydronephrosis. This has significantly improved from prior examinations. 8. Question a mild nonspecific colitis. Clinical correlation will be required. 9. Prostatomegaly with evidence of chronic bladder outlet obstruction. There is pericystic inflammation and mucosal hyperemia. Correlate clinically and with urinalysis for evidence of cystitis. 10. There is a small volume of pelvic ascites. 11. Mild splenomegaly. 12. Additional findings as above. ECG Data Attestation: I personally reviewed and interpreted this ECG as follows: Indication: + chest pain Rate (beats per minute): 101 Rhythm: + sinus tachycardia ECG ST segments: no ST elevation ECG Findings: no PVCs Blood Pressure Blood Pressure Findings: Normal blood pressure MDM Narrative The patient presents as above. His CBC and chemistry panel was unremarkable. He is currently on Cipro for UTI. CT scan of the chest reveals bilateral PEs. The patient was started on IV heparin. He was also given some IV fluids. The patient was seen by the hospitalist for further inpatient evaluation and care. Impression & Plan Bilateral pulmonary embolism Discharge Plan Visit Data *Final* Discharge Date/Time: 09/23/19 19:34 Chief Complaint: Weakness Stated Complaint: WEAKNESS ED Provider: Mono Miller Discharge Problem: Bilateral pulmonary embolism Patient Disposition: Admitted As Inpatient Discharge Instructions Interventions: ED Discharge Assessment Last Done: 09/23/19 19:34
[2019-09-23] MEDS ORDERED: ACETAMINOPHEN 325 MG TAB PO PRN (20:17)
[2019-09-23] MEDS ORDERED: ONDANSETRON INJ 2 MG/ML 2 ML VIAL IV PRN (20:17)
[2019-09-23] MEDS ORDERED: cefTRIAXone SODIUM 1,000 MG in DEXTROSE 5% 50 ML IV SCH ×2 (20:17→21:00)
[2019-09-23] MEDS ORDERED: ALFUZOSIN HCL 10 MG TAB PO SCH (21:00)
[2019-09-23] MEDS ORDERED: ATENOLOL 50 MG TABLET PO SCH (21:00)
[2019-09-23] MEDS ORDERED: FINASTERIDE 5 MG TAB PO SCH (21:00)
[2019-09-23] MEDS: SUCRALFATE 1 GM TAB PO SCH (21:20)
[2019-09-23] MEDS: SODIUM CHLORIDE 0.9% 1000ML 1,000 ML IV SCH (21:21)
[2019-09-24 01:47] LABS: Partial Thromboplastin Ratio > 5.0
[2019-09-24 01:52] LABS: Partial Thromboplastin Time > 139.0 Seconds (21.0-31.0)
[2019-09-24 03:01] LABS: Hematocrit (blood only) 26.5 % (42-52); Mean Corpuscular Volume 85.5 fL (80-100); Platelet Count 175 K/uL (130-400); RDW Coefficient of Variation 15.5 % (11.5-14.5); RDW Standard Deviation 48.2 fL (36.4-46.3); White Blood Count 5.14 K/uL (4.8-10.8)
[2019-09-24 03:24] LABS: Albumin Level 1.6 gm/dl (3.4-5.0); BUN Creatinine Ratio 13.3 (10-20); Calcium 7.3 mg/dl (8.5-10.1); Creatinine Clr Calc Pharmacy 50.7 ml/min; Est GFR (African American) 67.5; Est GFR (Non-African American) 58.2; Partial Thromboplastin Time 84.8 Seconds (21.0-31.0); Potassium 3.2 mmol/L (3.5-5.1)
[2019-09-24 03:27] LABS: Albumin Globulin Ratio 0.6 (0.9-2); Bilirubin,Total 0.2 mg/dl (0.2-1); Globulin 2.5 gm/dl (2.5-4.0); Total Protein 4.1 gm/dl (6.4-8.2)
--- NOTE | 2019-09-24 08:03 | Hospitalist Progress Note ---
Date of Service September 24, 2019 Assessment & Plan (1) Bilateral pulmonary embolism: -PE with pulmonary infarct in face of Lymphoma CT angio abd/pelvis IMPRESSION: 1. Bilateral pulmonary emboli 2. Cardiomegaly. 3. There is subpleural wedge-shaped groundglass consolidation in the anterior left upper lobe, likely representing a pulmonary infarct. 4. Additional foci of subpleural groundglass consolidation are seen in the right lung as above. This could also represent developing pulmonary infarct versus an infectious/inflammatory pneumonitis. Clinical correlation will be required. 5. Trace pleural effusions with dependent atelectasis. 6. Abdominopelvic lymphadenopathy has markedly improved as compared to 08/03/2019. 7. There is moderate left-sided hydronephrosis. This has significantly improved from prior examinations. 8. Question a mild nonspecific colitis. Clinical correlation will be required. 9. Prostatomegaly with evidence of chronic bladder outlet obstruction. There is pericystic inflammation and mucosal hyperemia. Correlate clinically and with urinalysis for evidence of cystitis. 10. There is a small volume of pelvic ascites. 11. Mild splenomegaly - Start on heparin gtt now - no hx of bleeding - Oncology consulted - Dr. Fisher - Incentive spirometry, flutter, encourage ambulation once breathing improved. 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 Confluent adenopathy throughout the retroperitoneum which encases the abdominal aorta, IVC, and left ureter now nahun sures a maximum of 8 cm in transverse diameter (previously measuring over 12 cm). The residual mesenteric lesion anterior to the pancreas now measures approximately 9 x 2 cm (previously measuring 13 x 9 cm). -anemia appears to be baseline with hgb = 10.7, follow am cbc, heparin gtt as above (3) Chronic kidney disease, stage 3 (moderate): - chronic and stable (4) BPH (benign prostatic hyperplasia): - Cont Proscar and alfuzosin - Had garcia changed in the ER on 09/21/19. irritation (cystitis? ) seen on CT will check urine culture in face of immunosupressive chemo , is started on Ceftriaxone (5) Hypertension: - Cont on atenolol 50 mg a day (6) GERD (gastroesophageal reflux disease): - Cont sucralfate, omeprazole (7) Dyslipidemia: - not on statin therapy (8) Chronic indwelling Garcia catheter: - Follows with Dr. Andrade, in place for chronic prostatitis. Last changed on 09/21/2019 as it was blocked and not draining, which has been a problem in the past. - UA sent, appears dirty, dose of ceftriaxone given in the ER, will contine abx, follow culture (9) DVT prophylaxis: -Heparin drip, likely transtion to DOAC CODE: DNR Dispo: From home, likely to remain in the hospital x 1-2 days Admission and Anticipated Discharge Date Admission Date: September 23, 2019 Results & Data Results & Data ([facility]) Vital Signs (Past 12 Hours) Vital Signs Temp Pulse Resp BP Pulse Ox 09/24/19 04:55 98.2 F 81 18 123/69 97 09/24/19 00:22 99.0 F 85 18 140/71 95 09/23/19 20:29 98.4 F 20 134/82 97 PG Care Time/CCT Total # of Minutes Spent Total Time Spent with Patient: Total time spent is greater than 50% in coordination of care (as documented) at patient's floor/unit and/or counseling patient: Coding Diagnoses Bilateral pulmonary embolism I26.99 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 C85.18 Chronic kidney disease, stage 3 (moderate) N18.3 BPH (benign prostatic hyperplasia) N40.0 Lower urinary tract symptom presence: symptoms absent Hypertension I10 Hypertension type: essential hypertension GERD (gastroesophageal reflux disease) K21.9 Esophagitis presence: esophagitis presence not specified Dyslipidemia E78.5 Chronic indwelling Garcia catheter Z97.8 DVT prophylaxis Z29.9 (1) BPH (benign prostatic hyperplasia) Lower urinary tract symptom presence: symptoms absent Qualified Code(s): N40.0 - Benign prostatic hyperplasia without lower urinary tract symptoms (2) GERD (gastroesophageal reflux disease) Esophagitis presence: esophagitis presence not specified Qualified Code(s): K21.9 - Gastro-esophageal reflux disease without esophagitis (3) Hypertension Hypertension type: essential hypertension Qualified Code(s): I10 - Essential (primary) hypertension
[2019-09-24] MEDS: SUCRALFATE 1 GM TAB PO SCH (08:21)
[2019-09-24] MEDS: SODIUM CHLORIDE 0.9% 1000ML 1,000 ML IV SCH (08:21)
[2019-09-24] MEDS ORDERED: RIVAROXABAN 15 MG TAB PO SCH (09:00)
[2019-09-24] MEDS ORDERED: ENOXAPARIN INJ 40 MG/0.4 ML SYR SQ SCH (09:00)
--- NOTE | 2019-09-24 09:51 | Consultation Report ---
DATE OF CONSULTATION: 09/24/2019 REASON FOR CONSULTATION: Pulmonary emboli in a patient being treated for lymphoma. CHIEF COMPLAINT: Increasing weakness. HISTORY OF PRESENT ILLNESS: This 74-year-old male with a diffuse large lymphocytic lymphoma, who is receiving chemotherapy with R-CHOP, required hospitalization because of the development of multiple pulmonary emboli. He had increasing weakness prior to admission. He did not note any unusual extremity swelling or tenderness. He had not had extremity trauma. There has been no recent difficulty with the functioning of his venous access device. He has been found to have pelvic lymphadenopathy with possible obstruction of venous blood flow. He denies pleuritic chest pain and hemoptysis. He is anxious to be discharged from the hospital as promptly as this can be arranged. His most recent infusion of R-CHOP chemotherapy was on 08/30/2019. The CT scan on admission showed bilateral pulmonary emboli. A wedge-shaped abnormality in the left upper lobe was thought to be a manifestation of a pulmonary infarction. Cardiomegaly and an enlarged prostate gland were noted. The patient's lymphadenopathy was improved from the prior study. PAST MEDICAL HISTORY: He has had urinary obstruction secondary to benign prostatic hypertrophy. He has recently required a change in his Reilly catheter because of development of an obstructive uropathy. Additional problems include GERD and hypertension. FAMILY HISTORY: There is no unusual family history of neoplastic disorders or hematologic dyscrasias. SOCIAL HISTORY: He is a former cigarette smoker. He does not use alcohol containing beverages or illicit drugs. He is retired and lives with his . REVIEW OF SYSTEMS: CONSTITUTIONAL: Increasing weakness. No fever or chills. EYES: Persistent impaired vision in right eye due to traumatic injury. No eye redness. EAR, NOSE AND THROAT: Auditory acuity intact. No unusual nasal discharge. No pharyngitis. RESPIRATORY: Nonproductive cough, increasing dyspnea, no hemoptysis. CARDIOVASCULAR: No anginal chest pain, no palpitations. ABDOMEN: No unusual discomfort. No recent change in stool pattern. GENITOURINARY: Urinary obstruction secondary to BPH, requiring Reilly catheter. MUSCULOSKELETAL: No impairment of gait, no joint pain or swelling. NEUROLOGIC: No focal areas of weakness or abnormal sensation. SKIN: No rash or palpable subcutaneous abnormalities. PSYCHIATRIC: No anxiety or depression. PHYSICAL EXAMINATION: GENERAL: Well-developed, thin male, in no acute distress. HEAD: No contusion. EYES: No scleral icterus, no conjunctivitis. Disconjugate gait due to malfunction of right eye. EAR, NOSE AND THROAT: Tympanic membranes intact. No pharyngitis. No mucosal ulcerations. CHEST: Resonant to percussion. Expiration not prolonged on auscultation. No wheezes or rhonchi. HEART: Rhythm regular. No murmur, gallop or friction rub. ABDOMEN: Soft, bowel sounds active. No palpable masses. No organomegaly. MUSCULOSKELETAL: Gait intact. Muscle mass diminished, but symmetrical. No joint effusion. NEUROLOGIC: Cranial nerves intact other than for unilateral visual impairment compatible with traumatic eye injury. Deep tendon reflexes symmetrical. No pathologic reflexes. PSYCHIATRIC: Oriented in 3 spheres. Mood and affect appropriate. IMPRESSION AND FORMULATION: 1. Pulmonary emboli 2. Diffuse large B-cell lymphoma The patient was anticoagulated with intravenous heparin. Xarelto has been started, and this is appropriate. The site, where the pulmonary emboli originated, has not been identified. Even though this could not be confirmed by CT scan, it is quite likely that venous obstruction in the pelvis from lymphadenopathy resulted in development of a thrombus. His hemoglobin is somewhat lower than it was on admission. This may be a consequence of hemodilution from intravenous fluids. He will need careful observation to be certain that blood loss is not occurring. There is no evidence of infection, and he has an unremarkable WBC count. The abnormalities in his urine justify antibiotic therapy, especially since he has an obstructive uropathy that requires an indwelling Reilly catheter. It can be anticipated that he will become leukopenic from the chemotherapy that was recently administered. If no evidence of blood loss develops in association with anticoagulation, prompt discharge on Xarelto should be an option. Continued close followup in the outpatient department will be planned. RIKKI
--- NOTE | 2019-09-24 11:18 | Electrocardiogram Report ---
Test Reason : Blood Pressure : / mmHG Vent. Rate : 101 BPM Atrial Rate : 101 BPM P-R Int : 180 ms QRS Dur : 094 ms QT Int : 380 ms P-R-T Axes : 024 -01 -10 degrees QTc Int : 492 ms Sinus tachycardia Inferior infarct , age undetermined Abnormal ECG When compared with ECG of 27-JUL-2019 06:58, Vent. rate has increased BY 42 BPM Inferior infarct is now Present QT has lengthened Confirmed by Christopher Coker ([id number]) on 09/24/2019 11:18:21 AM Referred By: REFERRED SELF Confirmed By:Christopher Coker
--- NOTE | 2019-09-24 12:56 | Discharge Summary ---
Date of Service September 24, 2019 Admission HPI Per Admitting Provider This is a 74 yo M with PMhx of large B-cell lymphoma, currently getting chemotherapy with R-CHOP last dose was approximately 4 weeks ago, HTN, BPH with Garcia in place, GERD, who presents to the ER with worsening weakness, shortness of breath and difficulty taking deep breaths which started 2 days ago and has progressively worsened. He has home health nurses visiting him several days per week, and yesterday they scheduled an appointment with his oncologist, but then he canceled it. This morning visiting nurses reevaluated him and noticed that he had more difficulty with shortness of breath and called and got a appointment rescheduled for earlier today. He was sent over from the [facility] for further work-up. Patient was found to have bilateral PE on CTA and has been started on heparin drip. 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 Lungs are coarse with some increased breath sounds on the right Cardiac exam, Rhythm is regular.. Systolic ejection murmurs heard Abdominal exam reveals normal bowel sounds, soft non tender, no masses Extremities are mildly edematous and both pedal pulses are normal. Neurologic exam is alert and oriented, right eye strabismus, no other focal loss of strength or sensation Discharge Data Allergies Allergy/AdvReac Type Severity Reaction Status Date / Time No Known Allergies Allergy Unknown Verified 09/21/19 08:17 Consultations 09/23/19 20:17 Consult Case Management - Discharge Planning Routine Ordered Studies 09/23/19 16:39 CT abd pelvis IV con only Stat CT angio chest PE protocol Stat Hospital Course (1) Bilateral pulmonary embolism: -PE with pulmonary infarct in face of Lymphoma CT angio abd/pelvis IMPRESSION: 1. Bilateral pulmonary emboli 2. Cardiomegaly. 3. There is subpleural wedge-shaped groundglass consolidation in the anterior left upper lobe, likely representing a pulmonary infarct. 4. Additional foci of subpleural groundglass consolidation are seen in the right lung as above. This could also represent developing pulmonary infarct versus an infectious/inflammatory pneumonitis. Clinical correlation will be required. 5. Trace pleural effusions with dependent atelectasis. 6. Abdominopelvic lymphadenopathy has markedly improved as compared to 08/03/2019. 7. There is moderate left-sided hydronephrosis. This has significantly improved from prior examinations. 8. Question a mild nonspecific colitis. Clinical correlation will be required. 9. Prostatomegaly with evidence of chronic bladder outlet obstruction. There is pericystic inflammation and mucosal hyperemia. Correlate clinically and with urinalysis for evidence of cystitis. 10. There is a small volume of pelvic ascites. 11. Mild splenomegaly - Started on heparin gtt transition to Xarelto patient given first dose prior to discharge - Oncology consulted - Dr. Fisher -Patient will require home oxygen therapy will prescribe for open portable unit, continue incentive spirometry, flutter, Patient was able ambulate in the unit with nursing supervision he desperately wants to go home as his family is leaving to return to [place]. - (2) 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: - Chemotherapy with RCHOP, last chemo was approximately 4 weeks ago per patient - Per CT appears lymphadenopathy intra-abdominal he has shrunk compared to previous scans: -Mesenteric, retroperitoneal, iliac chain, an inguinal lymphadenopathy has markedly improved as compared to 08/03/2019. Confluent adenopathy throughout the retroperitoneum which encases the abdominal aorta, IVC, and left ureter now measures a maximum of 8 cm in transverse diameter (previously measuring over 12 cm). The residual mesenteric lesion anterior to the pancreas now measures approximately 9 x 2 cm (previously measuring 13 x 9 cm). -anemia of chronic disease did drop hemoglobin slightly with hydration (3) Chronic kidney disease, stage 3 (moderate): - chronic and stable (4) BPH (benign prostatic hyperplasia): - Cont Proscar and alfuzosin - Had garcia changed in the ER on 09/21/19. irritation (cystitis? ) seen on CT will check urine culture in face of im munosupressive chemo , is started on Ceftriaxone not discharged on antibiotics will await urine culture results and if positive consider prescribing antibiotic for home (5) Hypertension: - Cont on atenolol 50 mg a day (6) GERD (gastroesophageal reflux disease): - Cont sucralfate, omeprazole (7) Dyslipidemia: - not on statin therapy (8) Chronic indwelling Garcia catheter: - Follows with Dr. Andrade, in place for chronic prostatitis. Last changed on 09/21/2019 as it was blocked and not draining, which has been a problem in the past. - UA sent, appears dirty, dose of ceftriaxone given in the ER, will follow culture and continue with urology follow-up as an outpatient (9) Limited code status: Patient is a DNR Total Time Total Time Spent Total Time Spent (In Minutes): It required greater than 30 minutes to prepare this patient for discharge Discharge Plan Discharge Items Patient Disposition: Home - Home Health Services Reason For Visit: WEAKNESS Discharge Diagnosis: pulmonary embolism and pulmonary infarction Activity: Per Instructions section Activity Comment: please rest and recover Non-emergency contact: Primary Care Provider and Oncologist Call non-emergency contact if: you have any medication questions, your symptoms worsen and your pain is not controlled Follow-up/Referrals: Gaurav Garcia MD [Primary Care Provider] - Diet: Regular Addtl Attending Provider Instructions: Please take anticoagulation as prescribed which will be twice a day for 21 days and then once a day thereafter. Likely will need anticoagulation for minimum of 6 months but could be lifelong Use oxygen as prescribed. Your family doctor may consider testing you once you have been on anticoagulation for a month or so to determine if with resolution of your blood clots her oxygen requirement improves. Please continue to follow-up with your oncology doctor for your CLL Pending Studies at Discharge: No Stand-Alone Forms: [facility] [employer], Smoking Cessation Medications and DC Order Prescriptions: New Xarelto 15 mg Tablet 15 mg PO BID Qty: 60 RF: 5 (DME) Oxygen Home Liters Per Minute See Rx Instructions .ROUTE .MEDSUPPLY Qty: 1 RF: 0 Xarelto 20 mg tablet 20 mg PO DAILY Qty: 30 RF: 0 Continued alfuzosin 10 mg tablet extended release 24 hr 10 mg PO QPM Qty: 90 RF: 0 finasteride 5 mg tablet 5 mg PO QPM Qty: 90 RF: 0 sucralfate 1 gram tablet 1 gm PO BID Qty: 60 RF: 5 ondansetron HCl 8 mg tablet 8 mg PO BID RF: 0 atenolol 50 mg tablet 50 mg PO QPM RF: 0 Probiotic 3 billion cell Capsule 3,000 mmu cells PO DAILY RF: 0 Discontinued ciprofloxacin HCl [Cipro] 500 mg tablet 500 mg PO BID Qty: 28 RF: 0 baclofen 10 mg tablet 10 mg PO BID PRN (Reason: Spasms) RF: 0 Discharge Orders: Discharge Order (Routine); Ordered 09/24/19 Ordered By: Chon Suh Admission Data Admit Date/Time: 09/23/19 17:24 Attending Provider: Chon Suh Admit Provider: Reggie Muñoz Primary Care Provider: Gaurav Garcia Coding Level of Care Code D/C Day Management >30 mins Diagnoses Bilateral pulmonary embolism I26.99 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 C85.18 Chronic kidney disease, stage 3 (moderate) N18.3 BPH (benign prostatic hyperplasia) N40.0 Lower urinary tract symptom presence: symptoms absent Hypertension I10 Hypertension type: essential hypertension GERD (gastroesophageal reflux disease) K21.9 Esophagitis presence: esophagitis presence not specified Dyslipidemia E78.5 Chronic indwelling Garcia catheter Z97.8 Limited code status
[2019-09-24] MEDS ORDERED: ALFUZOSIN HCL 10 MG TAB PO SCH (17:00)
== END 2019-09-24 15:20 | disposition home health service (06) | DRG 175 ==
LOC: ED 16:09 → 2S 17:24 → SUATTDRO 17:24 → 2S 19:34

== ENCOUNTER 2019-10-21 13:11 | Inpatient (IN) ==
[2019-10-21] MEDS ORDERED: SODIUM CHLORIDE 0.9% 1000ML 1,000 ML IV ONE (14:14)
[2019-10-21] MEDS ORDERED: CEFEPIME 20 ML IV ONE (14:15)
[2019-10-21] MEDS ORDERED: VANCOMYCIN HCL 1,500 MG in SODIUM CHLORIDE 0.9% 500 ML IV STA (14:23)
[2019-10-21 14:26] LABS: BUN Creatinine Ratio 19.5 (10-20); Blood Urea Nitrogen 25 mg/dl (7-18); Calcium 7.9 mg/dl (8.5-10.1); Carbon Dioxide 24 mmol/L (21-32); Chloride 100 mmol/L (98-107); Est GFR (Non-African American) 54.4; Glucose 100 mg/dl (70-99); Hematocrit (blood only) 19.4 % (42-52); Hemoglobin 6.6 g/dL (14.0-18.0); Magnesium 1.4 mg/dl (1.8-2.4); Mean Corpuscular Hemoglobin 29.1 pg (25-34); Mean Corpuscular Volume 85.5 fL (80-100); Mean Platelet Volume 9.2 fL (7.4-10.4); Platelet Count 54 K/uL (130-400); Potassium 3.9 mmol/L (3.5-5.1); RDW Coefficient of Variation 16.2 % (11.5-14.5); RDW Standard Deviation 51.2 fL (36.4-46.3); Red Blood Count 2.27 M/uL (4.7-6.1); Sodium 131 mmol/L (136-145); White Blood Count 0.12 K/uL (4.8-10.8)
[2019-10-21] MEDS ORDERED: SODIUM CHLORIDE 0.9% 250 ML IV PRN ×2 (14:26→15:12)
--- NOTE | 2019-10-21 14:26 | Emergency Department Note ---
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 lowering technique was utilized adhering to the principles of ALARA. Comparison: 07/08/2015 Findings: The paranasal sinuses and mastoid air cells are clear. The calvarium and skull base are intact. The ventricles and sulci are within normal limits. There is no mass, hematoma, midline shift, or acute infarct. Age-related atrophy and chronic small vessel change pre-existing left craniotomy considered unchanged. Impression: No acute intracranial abnormality. Age-related atrophy and chronic small vessel change. Pre-existing left-sided craniotomy ECG Data Attestation: I personally reviewed and interpreted this ECG as follows: Indication: + weakness Rate (beats per minute): 127 Rhythm: + sinus tachycardia and + other (Poor baseline) ECG Intervals/blocks: + Normal QRS, + Normal QT and + Normal NC ECG [place]: + Normal ECG ST segments: + Nonspecific ST abnormalities ECG Findings: no PACs and no PVCs Comparison ECG Date: from (09/23/19) Change: the following changes noted (Rate has increased otherwise no significant change) Additional Comments: A second EKG was done which shows sinus tachycardia rate 139. The ST and T wave abnormalities are slightly more pronounced otherwise no change Blood Pressure Blood Pressure Findings: Normal blood pressure Blood Pressure Disposition: did not require urgent referral MDM Narrative This patient comes in with a fever. He is immunocompromised as he has non-Hodg kin's lymphoma and is on chemo. Additionally he is on a blood thinner for recent PE and fell and hit his head. He seems neurologically intact he does have a bruise on the forehead. In light of this, I also did do a CAT scan in addition to this sepsis work-up. His port was accessed. Blood cultures were obtained urinalysis and urine culture was obtained. He does have indwelling Reilly which was changed 3 days ago which could also be the source although he does report coughing. He denies any chest pain or shortness of breath. He does not believe he has a COVID exposure however given his symptoms he was isolated and COVID testing was done as well. He was given a 1 L IV normal saline bolus initially as well as IV cefepime and vancomycin IV for broad-spectrum antibiotic coverage. He was reassessed frequently. His white count came back extremely low at 120 total with a differential unable to be obtained therefore he is neutropenic his antibiotic should cover this as well. He is anemic and was typed and crossed for 2 units. He also has low platelets. I did have the nurse push the IV cefepime and expedite the CAT scan of his head as I was concerned with him being on anticoagulation and having low platelets and hitting his head that he could have a head bleed as well. His magnesium was low at 1.4 and this was also repleted with 2 g IV. His troponin is moderately elevated 0.23, he has some tachycardia but no chest pain or shortness of breath or EKG changes to suggest acute STEMI. I did talk to Dr. Gamino, his oncologist who does recommend admitting him and transfusing him. He would not give him platelets at this point with a platelets of 54,000. The patient was consented and his grandson did sign the form for blood transfusion I explained the risks and benefits he has had blood before and does understand this. His CAT scan fortunately did not show any acute bleed or abnormality. I did discuss the patient's CODE STATUS as well he is definitely a DO NOT RESUSCITATE he does not want CPR or intubation, the grandson was at the bedside and concurs with this. I did consult [facility] hospitalist to see him in the ED. he started complain of nausea and seem to be a little more short of breath as well we did her second EKG and there is no significant change compared to the first ST and T waves do appear to be a little more pronounced. He had no chest pain with this. He told the hospitalist that he was in agreement with treatment but was also ready to go and just wanted to . He is very clear that he does not want aggressive treatment. He did seem to be doing better after receiving the Zofran. He will be admitted for further treatment and evaluation. Continuous cardiac monitoring: An order was placed for continuous cardiac mo nitoring due to the concern for sepsis. His heart rate was noted to be 117 with sinus tachycardia on the monitor. Impression & Plan Sepsis, Weakness, Neutropenia, Anemia, Thrombocytopenia, Head injury, Hypomagnesemia, Fall, Diffuse non-Hodgkin's lymphoma Discharge Plan Visit Data *Final* Discharge Date/Time: 10/21/19 16:59 Chief Complaint: Fever Stated Complaint: FEVER, COUGH ED Provider: Ilir [place] Discharge Problem: Sepsis, Weakness, Neutropenia, Anemia, Thrombocytopenia, Head injury, Hypomagnesemia, Fall, Diffuse non-Hodgkin's lymphoma Patient Disposition: Admitted As Inpatient Discharge Instructions Interventions: ED Discharge Assessment Last Done: 10/21/19 16:59 Discharge Problem: Sepsis Qualifiers: Sepsis type: sepsis due to unspecified organism Sepsis acute organ dysfunction status: unspecified Qualified Code(s): A41.9 - Sepsis, unspecified organism Neutropenia Qualifiers: Neutropenia type: unspecified Qualified Code(s): D70.9 - Neutropenia, unspecified Anemia Qualifiers: Anemia type: other cause Other causes of anemia: antineoplastic chemotherapy Qualified Code(s): D64.81 - Anemia due to antineoplastic chemotherapy Head injury Qualifiers: Encounter type: initial encounter Qualified Code(s): S09.90XA - Unspecified injury of head, initial encounter Fall Qualifiers: Encounter type: initial encounter Qualified Code(s): W19.XXXA - Unspecified fall, initial encounter
[2019-10-21 14:30] LABS: INR 2.1 (0.9-1.1); Partial Thromboplastin Ratio 2.9; Prothrombin Time 21.2 Seconds (9.0-12.0)
[2019-10-21] MEDS: PATIENT'S HEIGHT AND/OR WEIGHT NEEDED SCH ×2 (14:30→18:37)
[2019-10-21 14:32] LABS: Alanine Aminotransferase 17 U/L (12-78); Albumin Globulin Ratio 0.7 (0.9-2); Alkaline Phosphatase 77 U/L (45-117); Aspartate Aminotransferase 16 U/L (15-37); Bilirubin,Total 0.6 mg/dl (0.2-1); Troponin I 0.237 ng/ml (0-0.045)
--- NOTE | 2019-10-21 14:37 | XRay Report ---
XR chest 1V portable CLINICAL HISTORY: Sepsis COMPARISON STUDY: 07/25/2019 FINDINGS: The cardiac and mediastinal contours remain stable. There is a right-sided A-Port catheter. There is mild interstitial prominence without evidence of overt failure. There is no focal pulmonary consolidation. There are no pleural effusions.[ IMPRESSION: Mild interstitial thickening without evidence of overt failure. No evidence of lobar cons olidation ACT 112: Negative or not required by law. Electronically signed by: Chandler Castillo M.D. 10/21/2019 2:36 PM
[2019-10-21 14:45] LABS: Partial Thromboplastin Time 81.6 Seconds (21.0-31.0)
--- NOTE | 2019-10-21 14:52 | CT Scan Report ---
CT head/brain wo con CT DOSE: 753.32 mGycm HISTORY: Trauma. Mental status change. fall, hit head on chemo TECHNIQUE: Multiaxial CT images of the head were performed without the use of intravenous contrast. A dose lowering technique was utilized adhering to the principles of ALARA. Comparison: 07/08/2015 Findings: The paranasal sinuses and mastoid air cells are clear. The calvarium and skull base are int act. The ventricles and sulci are within normal limits. There is no mass, hematoma, midline shift, or acute infarct. Age-related atrophy and chronic small vessel change pre-existing left craniotomy cons idered unchanged. Impression: No acute intracranial abnormality. Age-related atrophy and chronic small vessel change. Pre-existing left-sided craniotomy ACT 112: Negative or not required by law. The above report was generated using voice recognition software. It may contain grammatical, syntax or spelling errors. Electronically signed by: Giorgio Santos M.D. 10/21/2019 2:51 PM
[2019-10-21] MEDS: MAGNESIUM SULFATE / D5W 1 GM/100 ML BAG IV SCH ×2 (14:53→18:37)
[2019-10-21 15:10] LABS: Appearance Urine Clear (Clear); Bacteria Urine Automated 2+ (Negative); Bilirubin Urine Negative (Negative); Blood Urine 1+ (Negative); Color Urine Yellow; Glucose Urine UA Negative (Negative); Ketones Urine Negative (Negative); Leukocyte Esterase Urine Negative (Negative); Nitrite Urine Negative (Negative); Protein Urine 1+ (Negative); RBC Urine Automated 0-4 /hpf (0-4); Specific Gravity Urine 1.017 (1.000-1.030); Urobilinogen Urine Negative (Negative)
--- NOTE | 2019-10-21 15:29 | History & Physical Report ---
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 Gamino - Getting R-CHOP, last dose one week ago - Anemia appears to have baseline level around 10 - Cont decadron - Palliative consult placed - will start on roxinol 5 mg Q4H PO prn pain and shortness of breath (3) Sepsis: -Unknown source at this time, chronic indwelling Reilly which was changed on Thursday, 3 days ago, Mediport in left upper chest wall, both potential sources -Was administered dose of cefepime and Vanco in the ER, patient does not want any further antibiotics as he wishes to transition to comfort care, will hold. -Blood cultures x2 -Urine culture in process -LA elevated at 3.5 on admission, repeat ordered as well as procalcitonin, follow -Febrile -WBC = 0.12 on admission, diff not obtainable because levels were too low per lab (4) Anemia: -Hemoglobin of 6.6, initially had ordered 1 unit of PRBCs however patient does not want further treatment -Trend a.m. CBC -Patient denies BRBPR, constipated, denies BM for a few days. -Likely component of chemotherapy and last dosing being 1 week ago. (5) Head injury: - Ct of the head completed today and is negative for acute injury - S/p fall for weakness, no lightheadedness or dizziness (6) Fall: - PT/OT -Fall precautions (7) Hypomagnesemia: - Replaced in the ER via 2 g mag (8) Bilateral pulmonary embolism: - Extensive bilateral PE, admitted for PE in August 2019 - where he was started on xarelto - Involves left upper and left lower lobe pulmonary arteries which extend into segmental and subsegmental branches. There is also thrombus within the right upper, middle, and lower lobar pulmonary arteries which extend into segmental and subsegmental branches. (9) Thrombocytopenia: -Platelet count 50, monitor for spontaneous bleed while still on xarelto for bilateral PE as above - Trend cbc (10) Chronic kidney disease, stage 3 (moderate): - Stable, chronic (11) Chronic indwelling Reilly catheter: - Hx of such, changed last on 10/17 (12) Hypertension: - hx of such, BP stable at 127/84 (13) Dyslipidemia: - not on statin therapy (14) GERD (gastroesophageal reflux disease): - cont sucralfate (15) DVT prophylaxis: - teds, scds CODE: DNR/DNI Dispo: From home, likely to remain in the hospital x 1-2 days, placed on palliative care, no aggressive treatment, will continue home medications for now. Discussed with the patients who appeared at bedside in the ER that the patient does not want to pursue further aggressive treatment, she is tearful and understanding. History of Present Illness Primary Care Provider: Bry Garcia MD This is a 74-year-old male with non-Hodgkin's lymphoma, on chemotherapy, follows with Dr. Gamino as an outpatient. The last date of chemotherapy was approximately 1 week ago. Other past medical history includes HTN, HLD, BPH, chronic indwelling Reilly catheter, GERD, hypomagnesemia, bilateral PE being treated with Xarelto, CKD stage III, who presents with acute onset of cough and fever. Patient had subjective of fever of 101 at home, here in the ER he has T- max = 37.6. He patient reports that he started feeling ill on Thursday night, and that he progressively felt more fatigued, cough, intermittent fever and chills. He denies having any known COVID-19 positive contacts, and has primarily been at home or to an appointment at the doctor's office. When discussing CODE STATUS the patient states "I do not want to do anymore chemo. I am 74, I'm ready to " Family member, Toan Raines, is present at bedside and reports would like to get in touch with the patient's . Here in the ER patient is found to have a hemoglobin of 6.6, lactic acid of 3.4, troponin = 0.237, magnesium 1.4, sodium of 131, BP =120/105, pulse = 120-140, RR = 30. He is nauseous and vomiting at the bedside. He has a right-sided fine tremor at baseline but states that it is worse with having fever/chills. He has been ordered 1L NSS, 1 unit PRBCs, 2 g magnesium, currently on 2 L of O2 via NC where he typically wears 2. Allergies Allergy/AdvReac Type Severity Reaction Status Date / Time No Known Allergies Allergy Unknown Verified 10/21/19 14:08 Home Medications Home Medications Medication Instructions Recorded Confirmed Type atenolol 50 mg PO HS 07/06/19 10/21/19 History sucralfate 1 gram tablet 1 gm PO BID #60 tab 09/16/19 10/21/19 Rx ondansetron HCl 8 mg PO Q8H PRN 09/21/19 10/21/19 History Oxygen Home #1 ea 09/24/19 Rx Xarelto 20 mg PO QDD 10/21/19 10/21/19 History alfuzosin 10 mg PO HS 10/21/19 10/21/19 History alfuzosin 10 mg PO QDD 10/21/19 10/21/19 History dexamethasone 4 mg PO BID 10/21/19 10/21/19 History cefdinir 300 mg PO BID 10 Days #20 cap 10/25/19 Rx Past Med/Surg History Medical History 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 Matthew 07/13/2019 History of anesthesia reaction ASPIRATED DURING LYMPH NODE BIOPSY History of cataract surgery LEFT History of colonoscopy History of open reduction and internal fixation (ORIF) procedure RT LEG History of tooth extraction Port-A-Cath in place (07/27/19) Insertion of Mediport in Right Internal Jugular Vein with Fluoroscopy Dr. Matthew 07/27/19 Family History Mother Hypertension History of CVA (cerebrovascular accident) Father Unknown family medical history Lung disease Brother Unknown family medical history Sister Dementia Alcohol abuse Family/Other No problems noted. Denies family history of Prostate cancer Colorectal cancer Social History Smoking Status: Former smoker packs per day: 1; Second Hand Exposure: No; Hx Alcohol Use: No Hx Substance Use: Yes Last Used Substance: Hours (ago) Substance Use Type Other:: MEDICAL MARIJUANA LIQUID Preferred Language: Croatian Communication Ability: Effective Contact Center Associate Required: No Beliefs That Will Affect Care: None marital status: Current Living Situation: Spouse Current Living Situation Comment: with current occupational status: retired current occupation: Patient retired from the school district in 2019. How many Children do You have: 8 Feels Safe at Home: Yes Review of Systems Review of Systems: Constitutional: +fever, sweats and chills Eyes: No diplopia, no worsening or blurred vision ENT: normal hearing, no trouble swallowing Respiratory: + cough, + sputum,+ dyspnea at rest and on exertion Cardiovascular: No chest pain, tightness or palpitations Abdomen: No pain,+ nausea, + vomiting, diarrhea, +constipation Musculoskeletal: No joint pain, calf pain, swelling Neurologic: No weakness, numbness/tingling, or balance problems Psychiatric: No anxiety or depression Skin: No rash or itch Physical Exam Physical Exam: General: awake, alert, + moderate distress, tremor, nauseous and vomits at bedside, Head: Normocephalic, atraumatic ENT: PERRL, EOMI, no pharyngeal exudate, mucous membranes moist Chest: Diminished at bases, on 3L via NC, high RR=38, no adventitious breath sounds Cardiac: Sinus tachy with HR in 140s, no murmur, no JVD, normal peripheral pulses, good capillary refill Abdominal: NABS x 4 quadrants, soft, nontender to palpation, no rebound, guarding or tenderness Extremities: Normal inspection, no peripheral edema or erythema, calfs nontender to palpation Psych: Flat mood and depressed affect Neuro: AAO x 3, no gross motor deficits, speech is clear, no peripheral sensory deficits Results & Data Results & Data ([facility]) Vital Signs (Past 12 Hours) Vital Signs Temp Pulse Resp BP Pulse Ox 10/21/19 14:45 98 10/21/19 14:30 121 H 30 H 121/78 100 10/21/19 14:11 32 H 93 10/21/19 14:00 128 H 35 H 138/77 100 10/21/19 13:38 126 H 31 H 141/112 H 93 10/21/19 13:25 37.6 C H 117 H 30 H 108/68 100 Diagnostic Findings XR chest 1V portable CLINICAL HISTORY: Sepsis COMPARISON STUDY: 07/25/2019 FINDINGS: The cardiac and mediastinal contours remain stable. There is a right- sided A-Port catheter. There is mild interstitial prominence without evidence of overt failure. There is no focal pulmonary consolidation. There are no pleural effusions.[ IMPRESSION: Mild interstitial thickening without evidence of overt failure. No evidence of lobar consolidation ACT 112: Negative or not required by law. Electronically signed by: Chandler Castillo M.D. 10/21/2019 2:[address] head/brain wo con CT DOSE: 753.32 mGycm HISTORY: Trauma. Mental status change. fall, hit head on chemo TECHNIQUE: Multiaxial CT images of the head were performed without the use of intravenous contrast. A dose lowering technique was utilized adhering to the principles of ALARA. Comparison: 07/08/2015 Findings: The paranasal sinuses and mastoid air cells are clear. The calvarium and skull base are intact. The ventricles and sulci are within normal limits. There is no mass, hematoma, midline shift, or acute infarct. Age-related atrophy and chronic small vessel change pre-existing left craniotomy considered unchanged. Impression: No acute intracranial abnormality. Age-related atrophy and chronic small vessel change. Pre-existing left-sided craniotomy ACT 112: Negative or not required by law. The above report was generated using voice recognition software. It may contain grammatical, syntax or spelling errors. Electronically signed by: Giorgio Santos M.D. 10/21/2019 2:51 PM ECG Additional Comments: 21-OCT-2019 13:46:10 [facility]-EDSTAT ROUTINE RETRIEVAL Poor data quality, interpretation may be adversely affected Sinus tachycardia Possible Left atrial enlargement Nonspecific ST abnormality Abnormal ECG When compared with ECG of 23-SEP-2019 16:25, Criteria for Inferior infarct are no longer Present 25mm/s 10mm/mV 150Hz 9.0.9 12SL 241 MARLON: 10 Unconfirmed Vent. rate 127 BPM IA interval 158 ms QRS duration 82 ms QT/QTc 282/409 ms P-R-T axes 60 1 12 Code Status & VTE Plan Code Status DNR/DNI-discussed with the patient that he would like to talk with his about moving towards comfort care, but currently wants IV fluids, blood transfusion and electrolyte replacements. Supervising Physician Co-Signing Physician Notes During my face to face encounter with the patient, I obtained a history and physical examination. I answered all of the patient's questions. I reviewed the case with the APC Akua Chakraborty. I reviewed above note and agree with it. 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 He would like to be place on comfort measures. This was done in the presence of the patient's family friend. His will be coming to the hospital. 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 C85.18 Sepsis A41.9 Sepsis acute organ dysfunction status: unspecified Sepsis type: sepsis due to unspecified organism Anemia D64.81; T45.1X5A Anemia type: other cause Other causes of anemia: antineoplastic chemotherapy Head injury S09.90XA Encounter type: initial encounter Fall W19.XXXA Encounter type: initial encounter Hypomagnesemia E83.42 Bilateral pulmonary embolism I26.99 Thrombocytopenia D69.6 Chronic kidney disease, stage 3 (moderate) N18.3 Chronic indwelling Reilly catheter Z97.8 Hypertension I10 Hypertension type: essential hypertension Dyslipidemia E78.5 GERD (gastroesophageal reflux disease) K21.9 Esophagitis presence: esophagitis presence not specified DVT prophylaxis Z29.9 (1) Anemia Anemia type: other cause Other causes of anemia: antineoplastic chemotherapy Qualified Code(s): D64.81 - Anemia due to antineoplastic chemotherapy; T45.1X5A - Adverse effect of antineoplastic and immunosuppressive drugs, initial encounter (2) Sepsis Sepsis acute organ dysfunction status: unspecified Sepsis type: sepsis due to unspecified organism Qualified Code(s): A41.9 - Sepsis, unspecified organism (3) Head injury Encounter type: initial encounter Qualified Code(s): S09.90XA - Unspecified injury of head, initial encounter (4) GERD (gastroesophageal reflux disease) Esophagitis presence: esophagitis presence not specified Qualified Code(s): K21.9 - Gastro-esophageal reflux disease without esophagitis (5) Hypertension Hypertension type: essential hypertension Qualified Code(s): I10 - Essential (primary) hypertension (6) Fall Encounter type: initial encounter Qualified Code(s): W19.XXXA - Unspecified fall, initial encounter
[2019-10-21] MEDS ORDERED: ONDANSETRON INJ 2 MG/ML 2 ML VIAL IV STA (15:57)
[2019-10-21] MEDS ORDERED: ALFUZOSIN HCL 10 MG TAB PO SCH (17:36)
[2019-10-21] MEDS ORDERED: BENZONATATE 100 MG CAPSULE PO PRN (17:36)
[2019-10-21] MEDS ORDERED: ACETAMINOPHEN 325 MG TAB PO PRN (17:36)
[2019-10-21] MEDS ORDERED: ONDANSETRON INJ 2 MG/ML 2 ML VIAL IV PRN (17:36)
[2019-10-21] MEDS ORDERED: ONDANSETRON 8MG OD TAB PO PRN (17:54)
--- NOTE | 2019-10-21 18:05 | Electrocardiogram Report ---
Test Reason : Blood Pressure : / mmHG Vent. Rate : 127 BPM Atrial Rate : 127 BPM P-R Int : 158 ms QRS Dur : 082 ms QT Int : 282 ms P-R-T Axes : 060 001 012 degrees QTc Int : 409 ms Poor data quality, interpretation may be adversely affected likely Sinus tachycardia Possible Left atrial enlargement Nonspecific ST abnormality Abnormal ECG When compared with ECG of 23-SEP-2019 16:25, Criteria for Inferior infarct are no longer Present Confirmed by Bry Moreno ([id number]) on 10/21/2019 6:05:05 PM Referred By: Confirmed By:Dat Moreno
[2019-10-21] MEDS: MoRPHine SULFATE 5 MG/0.25 ML UDP PO PRN (19:20)
[2019-10-21] MEDS: RIVAROXABAN 20 MG TAB PO SCH (19:21)
[2019-10-21] MEDS: ALFUZOSIN HCL 10 MG TAB PO SCH (19:21)
[2019-10-21] MEDS: ATENOLOL 50 MG TABLET PO SCH (19:22)
[2019-10-21] MEDS: dexAMETHasone 4 MG TAB PO SCH (19:22)
[2019-10-21] MEDS: SUCRALFATE 1 GM TAB PO SCH (19:23)
[2019-10-21] MEDS: FINASTERIDE 5 MG TAB PO SCH (19:23)
[2019-10-21] MEDS ORDERED: MoRPHine SULFATE 2 MG/ML CARP IV STA ×2 (20:50→23:46)
[2019-10-21] MEDS ORDERED: ACETAMINOPHEN 1,000 MG/100 ML VIAL IV STA (23:18)
--- NOTE | 2019-10-22 07:29 | Hospitalist Progress Note ---
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 Dickerson, Dr dickerson did see on 10/21 prior to the REVERSAL of his comfort wishes - Getting R-CHOP, last dose one week ago - Anemia appears to have baseline level around 10 - Cont decadron - Palliative consult placed - will start on roxinol 5 mg Q4H PO prn pain and shortness of breath (3) Sepsis: -Unknown source at this time, chronic indwelling Reilly which was changed on Thursday, 3 days ago, Mediport in left upper chest wall, both potential sources -Was administered dose of cefepime and Vanco in the ER, patient does not want any further antibiotics as he wishes to transition to comfort care, will hold. -Blood cultures x2 -Urine culture in process -LA elevated at 3.5 on admission, repeat ordered as well as procalcitonin, follow -Febrile -WBC = 0.12 on admission, diff not obtainable because levels were too low per lab (4) Anemia: -PANCYTOPENIA from chemotherapy Hemoglobin of 6.6, -chemotherapy related anemia, transfuse -Patient denies BRBPR, constipated, denies BM for a few days. (5) Head injury: - Ct of the head completed today and is negative for acute injury - S/p fall for weakness, no lightheadedness or dizziness (6) Fall: - PT/OT -Fall precautions (7) Hypomagnesemia: - Replaced in the ER via 2 g mag (8) Bilateral pulmonary embolism: - Extensive bilateral PE, admitted for PE in August 2019 - where he was started on xarelto - Involves left upper and left lower lobe pulmonary arteries which extend into segmental and subsegmental branches. There is also thrombus within the right upper, middle, and lower lobar pulmonary arteries which extend into segmental and subsegmental branches. (9) Thrombocytopenia: -Platelet count low, monitor for spontaneous bleed while still on xarelto for bilateral PE as above - Trend cbc (10) Chronic kidney disease, stage 3 (moderate): - Stable, chronic (11) Chronic indwelling Reilly catheter: - Hx of such, changed last on 10/17 (12) Hypertension: - hx of such, BP stable at 127/84 (13) Dyslipidemia: - not on statin therapy (14) GERD (gastroesophageal reflux disease): - cont sucralfate (15) DVT prophylaxis: - teds, scds CODE: DNR/DNI Dispo: From home, likely to remain in the hospital x 1-2 days, placed on palliative care, Discussed with the patients and daughter who appeared at bedside, they wish to have treatment to move out of the shadow of most recent chemo then may consider hospice care at that point Admission and Anticipated Discharge Date Admission Date: October 21, 2019 Subjective Patient was seen in the presence of his daughter and his . Initially deciding on comfort care now with his daughter's urging he agreed to take blood products and antibiotics at this point time. He likely may still progress to comfort care in the future however during this acute hospital stay he wishes to have some treatment for what they deem chemotherapy related related events and then once they have resolved likely may progress towards hospice or comfort care at home. The patient is weak and tired he has no overall complaints he does have a wet sounding cough while I was in there examining him Review of Systems Review of Systems: Moderate distress and fatigue no headache, blurry or double vision no speech or swallowing issues no chest pain, pressure or palpitations Loose cough shortness of breath no abdominal pain, nausea or vomiting, diarrhea or constipation no dysuria, hematuria or frequency no focal joint pain or swelling no back pain, CVA tenderness or radicular pain Full edema and some skin bruising no focal signs of weakness or numbness or altered sensation Patient appears withdrawn Physical Exam Physical Exam: The patient appeared chronically ill fatigued and tired Vital signs as documented. Head exam is normocephalic atraumatic no scleral icterus Neck is without JVD, thyromegaly, or carotid bruits. Lungs are rhonchi heard throughout with decreased breath sounds at the bases Cardiac exam, Rhythm is regular.. Systolic ejection murmur Abdominal exam reveals normal bowel sounds, soft non tender, no masses Extremities are nonedematous and both pedal pulses are normal peripheral edema is present. Neurologic exam is alert and oriented, no focal loss of strength or sensation Skin is with various nondescript bruising Psychologically is with transferred depression Results & Data Results & Data ([facility]) Vital Signs (Past 12 Hours) Vital Signs Temp Pulse Pulse Resp BP Pulse Ox 10/22/19 07:05 97.3 F L 78 14 92/52 L 100 10/22/19 03:18 97.5 F L 80 26 H 74/64 L 100 10/22/19 00:35 108 H 10/22/19 00:10 100.9 F H 10/21/19 23:03 101.3 F H 98 H 27 H 62/41 L 99 PG Care Time/CCT Total # of Minutes Spent Total Time Spent with Patient: Total time spent is greater than 50% in coordination of care (as documented) at patient's floor/unit and/or counseling patient: Coding Level of Care Code 88737 Subseq Hosp Care Lvl 3 Diagnoses Neutropenic fever D70.9; R50.81 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 C85.18 Sepsis A41.9 Sepsis acute organ dysfunction status: unspecified Sepsis type: sepsis due to unspecified organism Anemia D64.81; T45.1X5A Anemia type: other cause Other causes of anemia: antineoplastic chemotherapy Head injury S09.90XA Encounter type: initial encounter Fall W19.XXXA Encounter type: initial encounter Hypomagnesemia E83.42 Bilateral pulmonary embolism I26.99 Thrombocytopenia D69.6 Chronic kidney disease, stage 3 (moderate) N18.3 Chronic indwelling Reilly catheter Z97.8 Hypertension I10 Hypertension type: essential hypertension Dyslipidemia E78.5 GERD (gastroesophageal reflux disease) K21.9 Esophagitis presence: esophagitis presence not specified DVT prophylaxis Z29.9 (1) Anemia Anemia type: other cause Other causes of anemia: antineoplastic chemotherapy Qualified Code(s): D64.81 - Anemia due to antineoplastic chemotherapy; T45.1X5A - Adverse effect of antineoplastic and immunosuppressive drugs, initial encounter (2) Sepsis Sepsis acute organ dysfunction status: unspecified Sepsis type: sepsis due to unspecified organism Qualified Code(s): A41.9 - Sepsis, unspecified organism (3) Head injury Encounter type: initial encounter Qualified Code(s): S09.90XA - Unspecified injury of head, initial encounter (4) GERD (gastroesophageal reflux disease) Esophagitis presence: esophagitis presence not specified Qualified Code(s): K21.9 - Gastro-esophageal reflux disease without esophagitis (5) Hypertension Hypertension type: essential hypertension Qualified Code(s): I10 - Essential (primary) hypertension (6) Fall Encounter type: initial encounter Qualified Code(s): W19.XXXA - Unspecified fall, initial encounter
[2019-10-22] MEDS: SUCRALFATE 1 GM TAB PO SCH ×2 (08:29→20:44)
[2019-10-22] MEDS: dexAMETHasone 4 MG TAB PO SCH ×2 (10:21→20:54)
[2019-10-22] MEDS ORDERED: SODIUM CHLORIDE 0.9% 250 ML IV PRN (10:23)
[2019-10-22] MEDS: CEFEPIME 2,000 MG in SYRINGE 7.5 ML IV SCH ×2 (11:06→23:18)
[2019-10-22 11:45] LABS: Creatinine Clr Calc Pharmacy 44.7 ml/min; Est GFR (African American) 57.6; Est GFR (Non-African American) 49.7
--- NOTE | 2019-10-22 11:51 | Consultation Report ---
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 Avtar had started treatment back in early August and received his initial cycle of R-CHOP in the hospital because of bulky disease and risk for tumor lysis. Avtar unfortunately has had difficulties from the onset of chemotherapy. I tried to reduce his oral steroids as I thought he may have manifested addisonian type symptomatology on day #6 of each cycle of treatment. I had a lyndsay discussion with Avtar and his back on 10/03. At that time, he was seriously considering stopping treatment, but both myself and family members convinced him to try one more chemotherapy with some subtle modifications. He received his third cycle of 6 prescribed on 10/12. Unfortunately, he developed fever of 101 at home. His blood pressure was quite low on admission. He denied any COVID-19 positive contacts. He basically made the statement that he did not want any more chemotherapy and was ready to . His hemoglobin is quite low at 6.6 and I believe he has been transfused. At bedside this morning, Avtar related the same desires that he would like to be stabilized to allow to go home to hospice care at this point. Based on the difficulties he has had, I cannot argue his position. Again, he was originally diagnosed in early July with a bulky double-hit lymphoma, which is a very high risk disease. His prognosis is not terribly good from the start. PAST MEDICAL HISTORY: Includes benign prostatic hypertrophy, double-hit lymphoma, dyslipidemia, gastroesophageal reflux disease, hypertension, skin cancer, tremors, history of endocarditis, pulmonary embolism. PAST SURGICAL HISTORY: Includes MediPort placement, open reduction and internal fixation of right leg, colonoscopy, cataract surgeries, left inguinal lymph node biopsy. MEDICATIONS: Xarelto 20 mg p.o. daily, finasteride 5 mg p.o. daily, dexamethasone 4 mg p.o. b.i.d., alfuzosin 10 mg p.o. daily, he is on home oxygen, Zofran 8 mg p.o. q.8 hours p.r.n., sucralfate 1 gram p.o. b.i.d., atenolol 50 mg p.o. at bedtime. ALLERGIES: No known drug allergies. SOCIAL HISTORY: The patient is retired and lives with his . He is a nonsmoker, nondrinker, non-illicit drug user. FAMILY HISTORY: Mother suffered from hypertension and from cerebrovascular accident. Father suffered from lung disease. He has a sister who is an alcoholic and suffered from dementia. REVIEW OF SYSTEMS: CONSTITUTIONAL: Most notably for asthenia, fatigue, general decline. Positive for fever, positive for chills. SKIN: No rashes or lesions. No history of dermatoses. HEENT: He denies headaches, lightheadedness or dizziness. No acute visual or hearing deficits. No sinus symptoms, sore throat or dysphagia. LYMPHATICS: Positive for a double-hit non-Hodgkin's lymphoma diagnosis established in 07/2019. CARDIOVASCULAR: Negative for angina or palpitations. PULMONARY: He is oxygen dependent. He is not acutely short of breath, dyspneic or orthopneic. Recent diagnosis of pulmonary embolism. GASTROINTESTINAL: Positive for diffuse abdominal pain. No current nausea or vomiting, no diarrhea or constipation or hematochezia. GENITOURINARY: Positive history of benign prostatic hypertrophy. No current hematuria, dysuria, or urinary incontinence. PSYCHIATRIC: Negative for anxiety, depression or psychoses. ENDOCRINE: Negative for diabetes or thyroid disease. NEUROLOGIC: Negative for seizure, stroke, or migraine headache. HEMATOLOGIC: Cytopenias attributable to chemotherapeutic effect. PHYSICAL EXAMINATION: GENERAL: Very ill-appearing 74-year-old gentleman, awake, alert and appropriate, in no acute distress. VITAL SIGNS: Temperature 36.3, pulse 78, respiratory rate 14, blood pressure 92/52. SKIN: Warm, dry, noncyanotic without petechia, rash or ecchymosis. Turgor is fair. HEENT: Atraumatic, normocephalic. Nares patent without rhinorrhea or discharge. Throat is clear. No buccal lesions or ulcerations. No evidence of thrush. NECK: Supple without JVD or thyromegaly. HEART: Regular rate and rhythm. LUNGS: Right basilar crackles posteriorly. ABDOMEN: Soft, nontender, nondistended. Bowel sounds are active. EXTREMITIES: No clubbing, cyanosis or edema. NEUROLOGICAL: He is awake, alert and appropriate. Cranial nerves not tested. LABORATORY DATA: WBC count 120, hemoglobin 6.6, platelet count 54,000. PT 21.2 seconds, PTT 81.6 seconds. Sodium 131, potassium 3.9, chloride 100, carbon dioxide 24, creatinine 1.28, BUN 25. Lactate 4.1, magnesium 1.4. BNP 7476. Troponin I of 0.237. Procalcitonin 36.29. RADIOGRAPHIC DATA: Chest x-ray done on admission revealed mild interstitial thickening without evidence of overt heart failure. No evidence of lobar consolidation. IMPRESSION: 1. Neutropenic fever. 2. Double hit non-Hodgkin's lymphoma. 3. Hypomagnesemia. 4. Bilateral pulmonary embolism. 5. Pancytopenia attributable to chemotherapeutic effect. PLAN: I visited with Avtar at bedside this morning. He appeared to be quite comfortable receiving comfort care at this point. Avtar informed me this morning that he does not want any further chemotherapy and wants supportive care only. I can appreciate the struggles Avtar suffered through chemotherapy. He unfortunately suffers from high risk double-hit lymphoma and his prognosis was not good from the start. Mr. Jarquin also had bulky disease and received his first course of R-CHOP while inhouse. He has had difficulties throughout his course of chemotherapy, ended up receiving 3 of 6 prescribed cycles of treatment. He last received chemotherapy on 10/13/2019. I attempted some modifications of dosing, particularly the corticosteroid portion of his regimen, which unfortunately did not result in better tolerances. I agree Avtar is making a sound decision at this point that he has proven to be poorly tolerant of chemotherapy and thus better served to live the extent of his natural life in a comfort with dignity. Avtar expressed a desire to be discharged home to hospice as soon as this can be arranged. I would be more than happy to help out with comfort care moving forward. Avtar thanked me for helping him, but I believe Avtar is definitely at peace with his decision to stop heroic measures. I have nothing further to add, agree with medical management. Thank you very much for allowing me to participate in his care. RIKKI
[2019-10-22] MEDS: RIVAROXABAN 20 MG TAB PO SCH (17:16)
[2019-10-22] MEDS: ATENOLOL 50 MG TABLET PO SCH (20:53)
[2019-10-22] MEDS: FINASTERIDE 5 MG TAB PO SCH (20:54)
[2019-10-22] MEDS: MoRPHine SULFATE 5 MG/0.25 ML UDP PO PRN (20:55)
[2019-10-22] MEDS: ALFUZOSIN HCL 10 MG TAB PO SCH (20:57)
[2019-10-22 21:11] LABS: Hematocrit (blood only) 20.2 % (42-52); Hemoglobin 7.1 g/dL (14.0-18.0); Mean Corpuscular Hemoglobin 29.6 pg (25-34); Mean Corpuscular Hgb Conc 35.1 g/dL (32-36); Mean Corpuscular Volume 84.2 fL (80-100); Platelet Count 36 K/uL (130-400); RDW Coefficient of Variation 15.4 % (11.5-14.5); RDW Standard Deviation 48.2 fL (36.4-46.3); White Blood Count 0.07 K/uL (4.8-10.8)
[2019-10-22] MEDS ORDERED: POLYETHYLENE (MIRALAX) 17 GM PACK PO PRN (21:11)
[2019-10-22 21:18] LABS: Albumin Level 1.6 gm/dl (3.4-5.0); BUN Creatinine Ratio 28.9 (10-20); Calcium 7.8 mg/dl (8.5-10.1); Creatinine Clr Calc Pharmacy 46.8 ml/min; Est GFR (African American) 60.7; Est GFR (Non-African American) 52.4; Magnesium 1.9 mg/dl (1.8-2.4)
[2019-10-22 21:23] LABS: Albumin Globulin Ratio 0.5 (0.9-2); Bilirubin,Total 1.5 mg/dl (0.2-1); Globulin 3.1 gm/dl (2.5-4.0); Potassium 3.1 mmol/L (3.5-5.1); Total Protein 4.7 gm/dl (6.4-8.2)
[2019-10-23 07:08] LABS: Hematocrit (blood only) 20.7 % (42-52); Hemoglobin 7.3 g/dL (14.0-18.0); Mean Corpuscular Hemoglobin 29.3 pg (25-34); Mean Corpuscular Hgb Conc 35.3 g/dL (32-36); Mean Corpuscular Volume 83.1 fL (80-100); Mean Platelet Volume 10.8 fL (7.4-10.4); Platelet Count 38 K/uL (130-400); RDW Coefficient of Variation 15.8 % (11.5-14.5); RDW Standard Deviation 48.7 fL (36.4-46.3); Red Blood Count 2.49 M/uL (4.7-6.1)
--- NOTE | 2019-10-23 07:22 | Hospitalist Progress Note ---
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 Dickerson, Dr dickerson did see on 10/21 prior to the REVERSAL of his comfort wishes - Getting R-CHOP, last dose one week ago - Anemia appears to have baseline level around 10 pt will recieve a total of 3 units of prbc - Cont decadron - Palliative consult placed - will start on roxinol 5 mg Q4H PO prn pain and shortness of breath (3) Sepsis: -E Coli blood culture finney sensitive, urine without definitive source, will change to ceftriaxone -Was administered dose of cefepime and Vanco in the ER, -Blood cultures 1 of 2 showing e coli -Urine culture 3 organisms, recommend recollection -LA elevated at 3.5 on admission, repeat ordered as well as procalcitonin, follow -Febrile -WBC =remains neutropenic (4) Anemia: -PANCYTOPENIA from chemotherapy Hemoglobin of 6.6,only montserrat to 7's after 2 units will transfusion additional unit -chemotherapy related anemia, transfuse -Patient denies BRBPR, constipated, denies BM for a few days. (5) Head injury: - Ct of the head completed today and is negative for acute injury - S/p fall for weakness, no lightheadedness or dizziness (6) Fall: - PT/OT -Fall precautions (7) Hypomagnesemia: - Replaced in the ER via 2 g mag (8) Bilateral pulmonary embolism: - Extensive bilateral PE, admitted for PE in August 2019 - where he was started on xarelto - Involves left upper and left lower lobe pulmonary arteries which extend into segmental and subsegmental branches. There is also thrombus within the right upper, middle, and lower lobar pulmonary arteries which extend into segmental and subsegmental branches. (9) Thrombocytopenia: -Platelet count low, monitor for spontaneous bleed while still on xarelto for bilateral PE as above - Trend cbc (10) Chronic kidney disease, stage 3 (moderate): - Stable, chronic (11) Chronic indwelling Reilly catheter: - Hx of such, changed last on 10/17 (12) Hypertension: - hx of such, BP stable low but stable (13) Dyslipidemia: - not on statin therapy (14) GERD (gastroesophageal reflux disease): - cont sucralfate (15) DVT prophylaxis: - teds, scds CODE: DNR/DNI Discussed with the patients and daughter who appeared at bedside, they wish to have treatment to move out of the shadow of most recent chemo then may consider hospice care at that point Admission and Anticipated Discharge Date Admission Date: October 21, 2019 Subjective after discussion today he agreed to take blood products and antibiotics at this point time, he does eventually want to go toward hospice but does not have 24/7 support at home as he feels his wifes health is too poor to do this. he wishes to have some treatment for what his family feels is chemotherapy related related events and then once they have resolved likely may progress towards hospice or comfort care at home. The patient is weak and tired he has no other overall complaints. Review of Systems Review of Systems: Moderate distress and fatigue, pt is very weak no headache, blurry or double vision no speech or swallowing issues no chest pain, pressure or palpitations Loose cough shortness of breath no abdominal pain, nausea or vomiting, diarrhea or constipation no dysuria, hematuria or frequency no focal joint pain or swelling no back pain, CVA tenderness or radicular pain lower extremity edema and some skin bruising no focal signs of weakness or numbness or altered sensation Patient appears withdrawn Physical Exam Physical Exam: The patient appeared chronically ill fatigued and tired Vital signs as documented. Head exam is normocephalic atraumatic no scleral icterus Neck is without JVD, thyromegaly, or carotid bruits. Lungs are rhonchi heard throughout with decreased breath sounds at the bases Cardiac exam, Rhythm is regular.. Systolic ejection murmur Abdominal exam reveals normal bowel sounds, soft non tender, no masses Extremities are nonedematous and both pedal pulses are normal peripheral edema is present. Neurologic exam is alert and oriented, no focal loss of strength or sensation Skin is with various nondescript bruising Psychologically is with transferred depression Results & Data Results & Data ([facility]) Vital Signs (Past 12 Hours) Vital Signs Temp Pulse Pulse Resp BP BP Pulse Ox 10/23/19 04:30 97.5 F L 80 16 109/67 98 10/22/19 23:13 98.2 F 82 20 105/60 99 10/22/19 19:31 97.7 F 86 18 97/60 L 98 PG Care Time/CCT Total # of Minutes Spent Total Time Spent with Patient: Total time spent is greater than 50% in coordination of care (as documented) at patient's floor/unit and/or counseling patient: Coding Level of Care Code 51791 Subseq Hosp Care Lvl 3 Diagnoses Neutropenic fever D70.9; R50.81 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 C85.18 Sepsis A41.9 Sepsis acute organ dysfunction status: unspecified Sepsis type: sepsis due to unspecified organism Anemia D64.81; T45.1X5A Anemia type: other cause Other causes of anemia: antineoplastic chemotherapy Head injury S09.90XA Encounter type: initial encounter Fall W19.XXXA Encounter type: initial encounter Hypomagnesemia E83.42 Bilateral pulmonary embolism I26.99 Thrombocytopenia D69.6 Chronic kidney disease, stage 3 (moderate) N18.3 Chronic indwelling Reilly catheter Z97.8 Hypertension I10 Hypertension type: essential hypertension Dyslipidemia E78.5 GERD (gastroesophageal reflux disease) K21.9 Esophagitis presence: esophagitis presence not specified DVT prophylaxis Z29.9 (1) Anemia Anemia type: other cause Other causes of anemia: antineoplastic chemotherapy Qualified Code(s): D64.81 - Anemia due to antineoplastic chemotherapy; T45.1X5A - Adverse effect of antineoplastic and immunosuppressive drugs, initial encounter (2) Sepsis Sepsis acute organ dysfunction status: unspecified Sepsis type: sepsis due to unspecified organism Qualified Code(s): A41.9 - Sepsis, unspecified organism (3) Head injury Encounter type: initial encounter Qualified Code(s): S09.90XA - Unspecified injury of head, initial encounter (4) GERD (gastroesophageal reflux disease) Esophagitis presence: esophagitis presence not specified Qualified Code(s): K21.9 - Gastro-esophageal reflux disease without esophagitis (5) Hypertension Hypertension type: essential hypertension Qualified Code(s): I10 - Essential (primary) hypertension (6) Fall Encounter type: initial encounter Qualified Code(s): W19.XXXA - Unspecified fall, initial encounter
[2019-10-23 07:27] LABS: BUN Creatinine Ratio 33.7 (10-20); Calcium 7.7 mg/dl (8.5-10.1); Creatinine Clr Calc Pharmacy 54.2 ml/min; Est GFR (African American) 72.5; Est GFR (Non-African American) 62.6; Potassium 3.2 mmol/L (3.5-5.1)
--- NOTE | 2019-10-23 07:37 | Electrocardiogram Report ---
Test Reason : Blood Pressure : / mmHG Vent. Rate : 139 BPM Atrial Rate : 139 BPM P-R Int : 120 ms QRS Dur : 084 ms QT Int : 366 ms P-R-T Axes : 044 039 043 degrees QTc Int : 556 ms Sinus tachycardia Abnormal ECG When compared with ECG of 21-OCT-2019 13:46, Nonspecific T wave abnormality, worse in Inferior leads T wave inversion now evident in Anterolateral leads Confirmed by Natan Holbrook ([id number]) on 10/23/2019 7:36:50 AM Referred By: REFERRED SELF Confirmed By:Natan Holbrook
[2019-10-23] MEDS: SUCRALFATE 1 GM TAB PO SCH ×3 (08:22→21:09)
[2019-10-23] MEDS: dexAMETHasone 4 MG TAB PO SCH ×2 (08:23→21:06)
[2019-10-23] MEDS: MoRPHine SULFATE 5 MG/0.25 ML UDP PO PRN ×2 (08:23→21:29)
[2019-10-23] MEDS: MEDICAL MARIJUANA PO SCH ×2 (08:50→21:30)
[2019-10-23] MEDS: CEFEPIME 2,000 MG in SYRINGE 7.5 ML IV SCH (11:03)
[2019-10-23] MEDS ORDERED: SODIUM CHLORIDE 0.9% 250 ML IV PRN ×2 (15:40→16:19)
[2019-10-23] MEDS: FINASTERIDE 5 MG TAB PO SCH (21:05)
[2019-10-23] MEDS: ALFUZOSIN HCL 10 MG TAB PO SCH (21:07)
[2019-10-23] MEDS: cefTRIAXone SODIUM 2,000 MG in DEXTROSE 5% 50 ML IV SCH (22:40)
[2019-10-23] MEDS: HEPARIN 100 UNIT/ML 5ML FLUSH FLUSH PRN ×2 (23:17→23:18)
[2019-10-24] MEDS: HEPARIN 100 UNIT/ML 5ML FLUSH FLUSH PRN ×3 (05:39→09:43)
[2019-10-24 07:01] LABS: BUN Creatinine Ratio 44.5 (10-20); Calcium 8.3 mg/dl (8.5-10.1); Creatinine Clr Calc Pharmacy 58.8 ml/min; Est GFR (African American) 80.1; Est GFR (Non-African American) 69.1; Potassium 3.2 mmol/L (3.5-5.1)
[2019-10-24 07:11] LABS: Hematocrit (blood only) 25.6 % (42-52); Hemoglobin 8.9 g/dL (14.0-18.0); Mean Corpuscular Hemoglobin 29.1 pg (25-34); Mean Corpuscular Hgb Conc 34.8 g/dL (32-36); Mean Corpuscular Volume 83.7 fL (80-100); Mean Platelet Volume 11.3 fL (7.4-10.4); Platelet Count 36 K/uL (130-400); RDW Coefficient of Variation 15.6 % (11.5-14.5); RDW Standard Deviation 47.8 fL (36.4-46.3); Red Blood Count 3.06 M/uL (4.7-6.1)
[2019-10-24] MEDS: cefTRIAXone SODIUM 2,000 MG in DEXTROSE 5% 50 ML IV SCH (08:39)
[2019-10-24] MEDS: SUCRALFATE 1 GM TAB PO SCH ×2 (09:05→21:06)
[2019-10-24] MEDS: MoRPHine SULFATE 5 MG/0.25 ML UDP PO PRN ×2 (09:06→21:14)
[2019-10-24] MEDS: dexAMETHasone 4 MG TAB PO SCH ×2 (09:07→21:06)
[2019-10-24] MEDS: MEDICAL MARIJUANA PO SCH ×2 (09:53→21:07)
[2019-10-24] MEDS: RIVAROXABAN 20 MG TAB PO SCH (16:16)
--- NOTE | 2019-10-24 16:49 | Palliative Care Consultation ---
Date of Consultation October 24, 2019 Assessment & Plan (1) Goals of care, counseling/discussion: Patient is a 74-year-old male who was diagnosed with non-Hodgkin's lymphoma in July-he started chemo in August and received his third out of 6 planned chemo treatments on 10/12. Patient reports he has not tolerated chemotherapy well. It is taking longer to recover after each course. Patient is stating he no longer wants to receive chemo. Patient with a poor prognosis even with treatment-prognosis without treatment is weeks. Patient presented to [facility] on 10/20 for fever, neutropenia and a cough. Patient was also having increased weakness with multiple falls-he did fall and hit his head the morning of admission-concern as patient is on Xarelto. Head CT was negative for any acute changes. Patient was started on IV antibiotics for neutropenic fever. Patient's white count on admission was 0.12-was 0.4 this a.m. Hemoglobin was 6.6-patient transfused, hemoglobin today 8.9, platelets stable at 3654K. Lactate was 4.1, sodium 131, albumin 2.0. Patient's T-max was 101.3 on 10/20, no elevated temperatures since midnight on 10/20. Patient also had abdominal and chest CT which showed mild splenomegaly, moderate left hydronephrosis that was improved from his prior scan, no bowel obstruction, diverticulosis. Bulky adenopathy had improved however it is encasing the abdominal aorta. He was also found to have bilateral PEs and involving the left upper lobe, left lower lobe, right upper lobe, right middle lobe and right lower lobe. Past medical history also significant for CKD stage III, indwelling Reilly with frequent UTIs, BPH and HLD. Collaborated with Dr. Gamino regarding patient's prognosis. Patient stated multiple times that his goal is to return home, he stated he wishes to at home and not at a hospital or facility. Patient has been to his third for the past 20 years. 's age is 84 and she has Parkinson's disease. Patient states he has 2 children-a daughter in [place] and a son in [place]. Patient does have a grandson who lives in [place]. -Patient seen and examined in room 303, no family at bedside. -Spoke with patient's ,Kyung, , grandsonXiang also present- discussion was via speaker phone. Discussed obstacles with patient's return home-this shorter prognosis may alter their decision making. and grandson plan to discuss further possibilities of caring for patient if he were to return home. 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 -Patient's current CODE STATUS is DNR -he stated he would not want any resuscitation measures. POLST form completed with patient-DNR, limited interven tions, he does not wish IV fluids or artificial feeds if he were unable to eat or drink. Copy of POLST form was placed in his chart, original placed with patient's belongings. -Collaborated with case management regarding discussion-they will follow-up with family tomorrow after they have had time to talk about a plan. (2) Diffuse non-Hodgkin's lymphoma: Patient not tolerating chemo well has voiced that he no longer wants to continue with chemotherapy (3) Neutropenic fever: Afebrile since 10/20 -around midnight. Continue on IV Rocephin (4) Pancytopenia: Required transfusion for hemoglobin of 6.6, white count slowly recovering (5) Weakness: May improve has patient recovers from last chemo on 10/12. History of Present Illness Reason for Consultation: Address goals of care Requesting Physician: Akua Chakraborty PA-C Attending Physician: Ranjan Chan DO History of Present Illness Patient is a 74-year-old male who was diagnosed with non-Hodgkin's lymphoma in July-he started chemo in August and received his third out of 6 planned chemo treatments on 10/12. Patient reports he has not tolerated chemotherapy well. It is taking longer to recover after each course. Patient is stating he no longer wants to receive chemo. Patient with a poor prognosis even with treatment- prognosis without treatment is weeks. Patient presented to [facility] on 10/20 for fever, neutropenia and a cough. Patient was also having increased weakness with multiple falls-he did fall and hit his head the morning of admission-concern as patient is on Xarelto. Head CT was negative for any acute changes. Patient was started on IV antibiotics for neutropenic fever. Patient's white count on admission was 0.12-was 0.4 this a.m. Hemoglobin was 6.6-patient transfused, hemoglobin today 8.9, platelets stable at 3654K. Lactate was 4.1, sodium 131, albumin 2.0. Patient's T-max was 101.3 on 10/20, no elevated temperatures since midnight on 10/20. Patient also had abdominal and chest CT which showed mild splenomegaly, moderate left hydronephrosis that was improved from his prior scan, no bowel obstruction, diverticulosis. Bulky adenopathy had improved however it is encasing the abdominal aorta. He was also found to have bilateral PEs and involving the left upper lobe, left lower lobe, right upper lobe, right middle lobe and right lower lobe. Past medical history also significant for CKD stage III, indwelling Reilly with frequent UTIs, BPH and HLD. Collaborated with Dr. Gamino regarding patient's prognosis. Patient stated multiple times that his goal is to return home, he stated he wi shes to at home and not at a hospital or facility. Patient has been to his third for the past 20 years. 's age is 84 and she has Parkinson's disease. Patient states he has 2 children-a daughter in [place] and a son in [place]. Patient does have a grandson who lives in [place]. -Patient seen and examined in room 303, no family at bedside. -Spoke with patient's ,Kyung, , grandson,Xiang also present- discussion was via speaker phone. Discussed obstacles with patient's return home-this shorter prognosis may alter their decision making. and grandson plan to discuss further possibilities of caring for patient if he were to return home. 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 -Patient's current CODE STATUS is DNR -he stated he would not want any resuscitation measures. POLST form completed with patient-DNR, limited interventions, he does not wish IV fluids or artificial feeds if he were unable to eat or drink. Copy of POLST form was placed in his chart, original placed with patient's belongings. -Collaborated with case management regarding discussion-they will follow-up with family tomorrow after they have had time to talk about a plan. Allergies Allergy/AdvReac Type Severity Reaction Status Date / Time No Known Allergies Allergy Unknown Verified 10/21/19 14:08 Home Medications Home Medications Medication Instructions Recorded Confirmed Type atenolol 50 mg PO HS 07/06/19 10/21/19 History sucralfate 1 gram tablet 1 gm PO BID #60 tab 09/16/19 10/21/19 Rx ondansetron HCl 8 mg PO Q8H PRN 09/21/19 10/21/19 History Oxygen Home #1 ea 09/24/19 Rx alfuzosin 10 mg PO HS 10/21/19 10/21/19 History alfuzosin 10 mg PO QDD 10/21/19 10/21/19 History dexamethasone 4 mg PO BID 10/21/19 10/21/19 History finasteride 5 mg PO HS 10/21/19 10/21/19 History rivaroxaban [Xarelto] 20 mg PO QDD 10/21/19 10/21/19 History Patient History Medical History 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 Matthew 07/13/2019 History of anesthesia reaction ASPIRATED DURING LYMPH NODE BIOPSY History of cataract surgery LEFT History of colonoscopy History of open reduction and internal fixation (ORIF) procedure RT LEG History of tooth extraction Port-A-Cath in place (07/27/19) Insertion of Mediport in Right Internal Jugular Vein with Fluoroscopy Dr. Matthew 07/27/19 Family History Mother Hypertension History of CVA (cerebrovascular accident) Father Unknown family medical history Lung disease Brother Unknown family medical history Sister Dementia Alcohol abuse Family/Other No problems noted. Denies family history of Prostate cancer Colorectal cancer Social History Smoking Status: Former smoker packs per day: 1; Second Hand Exposure: No; Do You Dip or Chew Tobacco: No; Tobacco Cessation Education Requested by Patient: No Hx Alcohol Use: No Hx Substance Use: Yes Last Used Substance: Hours (ago) Substance Use Type Other:: MEDICAL MARIJUANA LIQUID Preferred Language: Pakistani Communication Ability: Effective Intake Assessor Required: No Beliefs That Will Affect Care: None marital status: Current Living Situation: Spouse Current Living Situation Comment: with current occupational status: retired current occupation: Patient retired from the school district in 2019. How many Children do You have: 8 Other Information That Helps Us Care for You: No Feels Safe at Home: Yes Safety Concerns: Feels Safe At This Time Review of Systems Review of Systems: Patient denies pain, fever, chills, increased shortness of breath or abdominal pain. Chest pain has improved Positive for double vision due to disconjugate gaze Physical Exam Physical Exam: PE: Patient awake and alert, no acute distress at rest. HEENT: Disconjugate gaze. Hearing within normal limits Respirations: Unlabored, clear breath sounds CV: Regular rate, trace right lower extremity edema Abdomen: Distended, nontender to light palpation Extremities: Generalized weakness Neuro: Alert and oriented Results & Data Vital Signs (Past 12 Hours) Vital Signs Temp Pulse Resp BP Pulse Ox 10/24/19 15:06 97.9 F 67 18 111/72 97 10/24/19 07:13 97.9 F 61 16 113/70 96 PG Care Time/CCT Total # of Minutes Spent Total Time Spent with Patient: Total time spent 70 minutes with greater than 50% of the time at bedside discussing patient's goals as well as completing POLST form, speaking with family members on the unit by phone as well as collaborating with case management and attending physician. Coding Level of Care Code 76329 Inpt Consult Level 3 Diagnoses Goals of care, counseling/discussion Z71.89 Diffuse non-Hodgkin's lymphoma C85.80 Neutropenic fever D70.9; R50.81 Pancytopenia D61.818 Weakness R53.1 Time Spent (min) 70
--- NOTE | 2019-10-24 17:49 | Hospitalist Progress Note ---
Date of Service October 24, 2019 Assessment & Plan (1) Diffuse non-Hodgkin's lymphoma: Sepsis 2/2 E. coli bacteremia -c/w ceftriaxone IV daily -transition to cefdinir 300mg bid (for a total of 14 days of antibiotic therapy) upon discharge -remains neutropenic at 0.4 -palliative care involved Non-Hodgkin's lymphoma -not tolerating chemo well, does not want to continue -Hgb holding steady at 8.9; transfuse if necessary -case management is coming up with a plan, will inform patient and his family tomorrow -c/w decadron Head injury -CT head complete, negative for acute injury Fall -PT/OT Hypomagnesemia: resolved -recheck tomorrow Bilateral PE -c/w Xarelto CKD -stable, chronic Hypertension -BP low but stable Dyslipidemia -not on statin therapy GERD -c/w sucralfate DVT ppx -TEDs, SCDs (2) Pancytopenia: (3) Neutropenic fever: (4) Sepsis: (5) Head injury: (6) Bilateral pulmonary embolism: (7) Chronic kidney disease, stage 3 (moderate): Admission and Anticipated Discharge Date Admission Date: October 21, 2019 Supervising Physician Co-Signing Physician Notes I personally examined the patient and verified all carrion points of history and exam, discussed case, and agree with decision making with Dr Beverly. very weak. tearful and worried about how to take care of him. vitals noted nad heent nc at mmm breathing unlabored no accessory muscles good effort skin no rashes no pallor or icterus neutropenic fever/sepsis related to gram negative bacteremia (suspect urinary source) - stable for transition to PO abx. weakness - too weak for safe at home wtout 24/7 support. palliative discussing hospice, talking wt family for how to help better assist and support. othewrise as above Subjective Patient seen at bedside this morning. He felt "not so good" overall but had no specific complaints other than some pain in his left shoulder. He expressed that he would like to "just go home and " but was very calm and rational during our conversation. He seems to fully understand his situation. Patient's later expressed that she is overwhelmed with taking care of the patient and case management will help the family arrange for 24/7 care so that he can reach his goal of being at home. Review of Systems Respiratory: no cough, no chest congestion, no pain on inspiration and no wheezing Cardiovascular: no chest pain, no palpitations, no syncope and no edema Gastrointestinal: no abdominal pain, no bloating, no nausea and no vomiting Physical Exam Constitutional: + thin and + cachectic; no acute distress and not ill appearing Respiratory: normal respiratory effort; no respiratory distress and no labored breathing Auscultation: lungs clear to auscultation bilaterally; no crackles and no wheezes Cardiovascular: Rate/Rhythm: regular rate and regular rhythm Heart Sounds: no gallop and no murmur Gastrointestinal (Abdomen): Inspection/Auscultation: abdomen normal to inspection and normal bowel sounds; abdomen not distended Percussion/Palpation: abdomen nontender Results & Data Results & Data ([facility]) Vital Signs (Past 12 Hours) Vital Signs Temp Pulse Resp BP Pulse Ox 10/24/19 15:06 36.6 C 67 18 111/72 97 10/24/19 07:13 36.6 C 61 16 113/70 96 (1) Sepsis Sepsis acute organ dysfunction status: unspecified Sepsis type: sepsis due to unspecified organism Qualified Code(s): A41.9 - Sepsis, unspecified organism (2) Head injury Encounter type: initial encounter Qualified Code(s): S09.90XA - Unspecified injury of head, initial encounter
--- NOTE | 2019-10-24 18:29 | Billing Data ---
Date of Service October 24, 2019 Coding Level of Care Code 21652 Subseq Hosp Care Lvl 3
[2019-10-24] MEDS: ALFUZOSIN HCL 10 MG TAB PO SCH (21:06)
[2019-10-24] MEDS: FINASTERIDE 5 MG TAB PO SCH (21:06)
[2019-10-25] MEDS: HEPARIN 100 UNIT/ML 5ML FLUSH FLUSH PRN ×3 (05:27→13:45)
[2019-10-25 06:05] LABS: Hematocrit (blood only) 25.9 % (42-52); Hemoglobin 9.1 g/dL (14.0-18.0); Mean Corpuscular Hemoglobin 29.5 pg (25-34); Mean Corpuscular Hgb Conc 35.1 g/dL (32-36); Mean Corpuscular Volume 84.1 fL (80-100); RDW Coefficient of Variation 15.5 % (11.5-14.5); RDW Standard Deviation 47.9 fL (36.4-46.3); Red Blood Count 3.08 M/uL (4.7-6.1)
[2019-10-25 06:06] LABS: Mean Platelet Volume 11.1 fL (7.4-10.4); Platelet Count 36 K/uL (130-400)
[2019-10-25 06:37] LABS: BUN Creatinine Ratio 46.6 (10-20); Calcium 8.3 mg/dl (8.5-10.1); Creatinine Clr Calc Pharmacy 62.4 ml/min; Est GFR (Non-African American) 74.2; Magnesium 1.8 mg/dl (1.8-2.4); Potassium 3.9 mmol/L (3.5-5.1)
[2019-10-25 06:49] LABS: Dohle Bodies 1+; Giant Platelets 3+; Immature Granulocytes # (auto) 0.14 K/uL (0.00-0.02); Immature Granulocytes % (auto) 7.4 %; Lymphocytes # (auto) 0.07 K/uL (1.2-3.4); Lymphocytes % (auto) 3.7 %; Monocytes # (auto) 0.12 K/uL (0.11-0.59); Monocytes % (auto) 6.3 %; Neutrophils # (auto) 1.57 K/uL (1.4-6.5); Neutrophils % (auto) 82.6 %; Ovalocytes 1+
[2019-10-25] MEDS: MoRPHine SULFATE 5 MG/0.25 ML UDP PO PRN ×2 (08:31→14:27)
[2019-10-25] MEDS: dexAMETHasone 4 MG TAB PO SCH (08:31)
[2019-10-25] MEDS: SUCRALFATE 1 GM TAB PO SCH (08:31)
[2019-10-25] MEDS: cefTRIAXone SODIUM 2,000 MG in DEXTROSE 5% 50 ML IV SCH (08:32)
[2019-10-25] MEDS: MEDICAL MARIJUANA PO SCH (08:32)
--- NOTE | 2019-10-25 13:12 | Discharge Summary ---
Date of Service October 25, 2019 Admission HPI Per Admitting Provider This is a 74-year-old male with non-Hodgkin's lymphoma, on chemotherapy, follows with Dr. Gamino as an outpatient. The last date of chemotherapy was approximately 1 week ago. Other past medical history includes HTN, HLD, BPH, chronic indwelling Reilly catheter, GERD, hypomagnesemia, bilateral PE being treated with Xarelto, CKD stage III, who presents with acute onset of cough and fever. Patient had subjective of fever of 101 at home, here in the ER he has T-max = 37.6. He patient reports that he started feeling ill on Thursday night, and that he progressively felt more fatigued, cough, intermittent fever and chills. He denies having any known COVID-19 positive contacts, and has primarily been at home or to an appointment at the doctor's office. When discussing CODE STATUS the patient states "I do not want to do anymore chemo. I am 74, I'm ready to " Family member, Toan Raines, is present at bedside and reports would like to get in touch with the patient's . Here in the ER patient is found to have a hemoglobin of 6.6, lactic acid of 3.4, troponin = 0.237, magnesium 1.4, sodium of 131, BP =120/105, pulse = 120-140, RR = 30. He is nauseous and vomiting at the bedside. He has a right-sided fine tremor at baseline but states that it is worse with having fever/chills. He has been ordered 1L NSS, 1 unit PRBCs, 2 g magnesium, currently on 2 L of O2 via NC where he typically wears 2. Principal Diagnosis Sepsis 2/2 E. coli bacteremia Discharge Exam Constitutional + thin and + cachectic; no acute distress and not ill appearing Respiratory normal respiratory effort; no respiratory distress and no labored breathing Auscultation: lungs clear to auscultation bilaterally; no crackles and no wheezes Cardiovascular Rate/Rhythm: regular rate and regular rhythm Heart Sounds: no gallop and no murmur Gastrointestinal (Abdomen) Inspection/Auscultation: abdomen normal to inspection and normal bowel sounds; abdomen not distended Percussion/Palpation: abdomen nontender Discharge Data Allergies Allergy/AdvReac Type Severity Reaction Status Date / Time No Known Allergies Allergy Unknown Verified 10/21/19 14:08 Consultations 10/21/19 15:25 ED Decision to Admit Stat 10/21/19 17:36 Consult Case Management - Discharge Planning Routine Consult Oncology Routine Consult Palliative Care Routine Ordered Studies 10/21/19 14:14 CT head/brain wo con Stat Hospital Course (1) Diffuse non-Hodgkin's lymphoma: Sepsis 2/2 E. coli bacteremia Patient was admitted with sepsis and found to have positive blood cultures that grew E. coli. He was treated with antibiotics and showed clinical improvement day by day. His WBC count remained low due to pancytopenia 2/2 his chemotherapy regimen. Patient was discharged with cefdinir to complete a full 14 day course of antibiotics. Non-Hodgkin's lymphoma Patient's NHL was not treated during this admission as per patient and family decision which was confirmed during this admission. Palliative care was consulted to optimize patient's comfort and make sure treatment decisions were in line with the patient and family's goals. Head injury, fall Patient head a minor head abrasion upon admission due to a fall. CT head showed no acute intracranial process. No further workup or action was taken. Hypomagnesemia Patient's magnesium level was low on admission. This was repleted, and did not become an issue again during his stay. (2) Pancytopenia: (3) Neutropenic fever: (4) Sepsis: (5) Head injury: (6) Bilateral pulmonary embolism: (7) Chronic kidney disease, stage 3 (moderate): Total Time Total Time Spent Total Time Spent (In Minutes): <30 Discharge Plan Discharge Items Patient Disposition: Hospice - Home Reason For Visit: NEUTROPENIC FEVER Discharge Diagnosis: Sepsis 2/2 E. coli bacteremia Activity: Resume your previous activity Non-emergency contact: Primary Care Provider Call non-emergency contact if: you have any medication questions, your symptoms worsen and your pain is not controlled Follow-up/Referrals: Gaurav Garcia MD [Primary Care Provider] - Diet: Regular Addtl Attending Provider Instructions: You were seen at the hospital and diagnosed with E. coli bacteremia, which is an infection in your blood. You were treated with IV antibiotics while in the hospital. Oral antibiotic pills called cefdinir were sent to your pharmacy. Take one in the morning and one at night for the next 10 days to help your body fight this infection. We did not further treat your cancer while you were in the hospital. After conversations with you and your family, it became clear that you want to enjoy your remaining time at home with your family, and so we have done what we can to ensure you will be as comfortable as possible while there. Please call your PCP or nurse if you have further questions or concerns. Pending Studies at Discharge: No Stand-Alone Forms: [facility] Medications and DC Order Prescriptions: New cefdinir 300 mg capsule 300 mg PO BID 10 Days Qty: 20 RF: 0 Continued sucralfate 1 gram tablet 1 gm PO BID Qty: 60 RF: 5 ondansetron HCl 8 mg tablet 8 mg PO Q8H PRN (Reason: Nausea And Vomiting) RF: 0 atenolol 50 mg tablet 50 mg PO HS RF: 0 (DME) Oxygen Home Liters Per Minute See Rx Instructions .ROUTE .MEDSUPPLY Qty: 1 RF: 0 dexamethasone 4 mg tablet 4 mg PO BID RF: 0 alfuzosin 10 mg tablet extended release 24 hr 10 mg PO QDD RF: 0 alfuzosin 10 mg tablet extended release 24 hr 10 mg PO HS RF: 0 Xarelto 20 mg tablet 20 mg PO QDD RF: 0 Discontinued finasteride 5 mg tablet 5 mg PO HS RF: 0 Discharge Orders: Discharge Order (Routine); Ordered 10/25/19 Ordered By: Sean De Leon/Other Patient Handouts: Starting Hospice, For Caregivers: Edna Dougherty Admission Data Admit Date/Time: 10/21/19 15:36 Attending Provider: Ranjan Chan Admit Provider: Valentín Galloway Primary Care Provider: Gaurav Garcia Other Providers: [facility],Home Healthcare ; Valentín Galloway ; Matti Fisher V. ; Edna Lacey ; Chon Suh Other Interventions: Discharge Summary Assessment (RN) Last Done: 10/25/19 12:54 DC Date/Time DO NOT enter until pt leaves facility: 10/25/19 15:51 Supervising Physician Co-Signing Physician Notes I personally examined the patient and verified all carrion points of history and exam, discussed case, and agree with decision making with Dr Beverly. wants to get out of hospital - family set to take care of him. asks about prognosis - i answer as honestly as i can vitals noted nad heent nc at mmm breathing unlabored no accessory muscles good effort skin no rashes no pallor or icterus neutropenic fever/sepsis related to gram negative bacteremia (suspect urinary source) - finish Rx w PO abx weakness - 27/10 family support/hospice set up for help at home stable for home Resident Activity Tracking Resident Involvement: Resident Care Provided Care Provided: Adult Hospital Medicine
--- NOTE | 2019-10-25 19:55 | Billing Data ---
Date of Service October 25, 2019 Coding Level of Care Code D/C Day Management <30 mins
== END 2019-10-25 15:51 | disposition hospice, home (50) | DRG 871 ==
LOC: ED 13:11 → 2S 15:36 → SUATTDRO 15:36 → 2S 16:59 → 3E 10-23 16:56